=== PATIENT | female | born 1940 | race Caucasian/White ===

== ENCOUNTER 2018-06-23 15:50 | Inpatient (IN) | payer MEDICARE, OTHER ==
[2018-06-23 16:14] LABS: % BASOPHILS 0.5 % (0.0-2.0); % LYMPHOCYTES 31.9 % (20.0-50.0); % MONOCYTES 10.5 % (2.0-10.0); % NEUTROPHILS 54.1 % (40.0-80.0); EOSINOPHILE ABSOLUTE 0.2 Th/cmm (0.1-0.4); HEMATOCRIT 40.3 % (41.0-60); HEMOGLOBIN 13.4 gm/dL (12-16); LYMPHOCYTE ABSOLUTE 2.4 Th/cmm (1.5-3.0); MEAN CELL VOLUME 89.2 fl (81-100); MEAN CORPUSCULAR HEMOGLOBIN 29.6 pg (27.0-31.0); MEAN CORPUSCULAR HGB CONC 33.2 pg (28.0-36.0); MEAN PLATELET VOLUME 7.4 fl; MONOCYTE ABSOLUTE 0.8 Th/cmm (0.3-1.0); PLATELET COUNT 224 Th/cmm (150-400); RED BLOOD COUNT 4.52 Mil/cmm (3.80-5.20); RED CELL DISTRIBUTION WIDTH 12.5 % (11.5-20.0); WHITE BLOOD COUNT 7.4 Th/cmm (4.8-10.8)
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
[2018-06-23 16:33] LABS: ALB/GLOB RATIO 1.5 (1.0-1.8); ALBUMIN 3.9 gm/dL (3.7-5.3); ALKALINE PHOSPHATASE 87 U/L (34-104); ANION GAP 14.7 (7.0-16.0); BILIRUBIN,TOTAL 0.7 mg/dL (0.3-1.0); BUN - UREA NITROGEN 23 mg/dL (7-25); CALCIUM SERUM 9.1 mg/dL (8.6-10.3); CARBON DIOXIDE 21.1 mEq/L (21.0-31.0); CHLORIDE 106 mEq/L (98-107); CREATININE - SERUM 0.8 mg/dL (0.6-1.2); GLUCOSE 122 mg/dL (70-105); MAGNESIUM 1.5 mg/dL (1.9-2.7); PHOSPHOROUS 3.5 mg/dL (2.5-5.0); POTASSIUM SERUM 3.8 mEq/L (3.5-5.1); SGOT 16 U/L (13-39); SGPT/ALT 7 U/L (7-52); SODIUM SERUM 138 mEq/L (136-145); TOTAL PROTEIN,SERUM 6.5 gm/dL (6.0-8.3)
[2018-06-23] MEDS ORDERED: Lactated Ringer 1,000 ML IV ONE ×3 (17:00→19:26)
[2018-06-23 17:22] LABS: URINE SOURCE CATH
[2018-06-23 17:25] LABS: URINE BILIRUBIN NEGATIVE (NEGATIVE); URINE BLOOD TRACE (NEGATIVE); URINE GLUCOSE (UA) NEGATIVE (NEGATIVE); URINE KETONE TRACE mg/dL (NEGATIVE); URINE LEUKOCYTE ESTERASE LARGE (NEGATIVE); URINE MICROSCOPIC INDICATED? YES; URINE NITRATE POSITIVE (NEGATIVE); URINE PROTEIN TRACE mg/dL (NEGATIVE); URINE UROBILINOGEN 0.2 E.U./dL (0.2 - 1.0)
[2018-06-23 17:27] LABS: URINE CLARITY HAZY (CLEAR); URINE COLOR YELLOW
[2018-06-23 17:32] LABS: ACETAMINOPHEN < 10.0 ug/mL (10.0-30.0)
[2018-06-23 17:35] LABS: SALICYLATES (ASPIRIN) < 25.0 mg/L (30.0-100.0)
[2018-06-23 17:35] LABS: URINE BACTERIA MANY /hpf (NONE SEEN); URINE EPITHELIAL CELLS MODERATE /lpf (FEW)
[2018-06-23 18:12] LABS: AMPHETAMINE URINE NEGATIVE (NEGATIVE); BARBITURATES URINE NEGATIVE (NEGATIVE); BENZODIAZEPINES QUAL URINE NEGATIVE (NEGATIVE); CANNABINOID THC NEGATIVE (NEGATIVE); COCAINE METABOLITE QUAL URINE NEGATIVE (NEGATIVE); METHADONE URINE NEGATIVE (NEGATIVE); METHAMPHETAMINES QUAL URINE NEGATIVE (NEGATIVE); OPIATES (MORPHINE) QUAL. URINE NEGATIVE (NEGATIVE); PHENCYCLIDINE (PCP) URINE NEGATIVE (NEGATIVE); TRICYCLICS (TCA) QUAL. URINE NEGATIVE (NEGATIVE)
[2018-06-23] MEDS ORDERED: Calcium Gluconate 1 GM in Sodium Chloride 0.9% 100 ML IV ONE (18:30)
[2018-06-23] MEDS ORDERED: Norepinephrine 4 mg/4mL Vial IV ONE (18:39)
[2018-06-23] MEDS ORDERED: Ciprofloxacin 400mg Premix PB 400 MG/200 ML BAG IV ONE ×2 (20:10→20:32)
[2018-06-23] MEDS ORDERED: Magnesium Sulfate 1 gm/2 mL 2mL Vial IV ONE (20:33)
[2018-06-23 20:36] LABS: INR 1.23 (0.5-1.4); PROTHROMBIN TIME (TEST) 12.7 SECONDS (9.5-11.5)
[2018-06-24 02:44] VITALS: BP 94/33
[2018-06-24 04:34] LABS: HEMATOCRIT 36.4 % (41.0-60); HEMOGLOBIN 12.2 gm/dL (12-16); MEAN CELL VOLUME 88.4 fl (81-100); MEAN CORPUSCULAR HEMOGLOBIN 29.7 pg (27.0-31.0); MEAN CORPUSCULAR HGB CONC 33.6 pg (28.0-36.0); MEAN PLATELET VOLUME 7.7 fl; PLATELET COUNT 191 Th/cmm (150-400); RED BLOOD COUNT 4.12 Mil/cmm (3.80-5.20); RED CELL DISTRIBUTION WIDTH 12.9 % (11.5-20.0); WHITE BLOOD COUNT 7.5 Th/cmm (4.8-10.8)
[2018-06-24 05:13] LABS: BUN - UREA NITROGEN 17 mg/dL (7-25); CALCIUM SERUM 8.7 mg/dL (8.6-10.3); CHLORIDE 108 mEq/L (98-107); CREATININE - SERUM 0.8 mg/dL (0.6-1.2); CREATININE KINASE 92 U/L (30-223); GLUCOSE 87 mg/dL (70-105); SODIUM SERUM 140 mEq/L (136-145)
[2018-06-24 05:49] LABS: BAND NEUTROPHILE 0 % (0-10); LYMPHOCYTE 41 % (20-50); MONOCYTE 5 % (2-10); NEUTROPHILS 53 % (40-80)
[2018-06-24 05:50] LABS: EOSINOPHIL 1 % (0-5)
[2018-06-24] MEDS ORDERED: Mag Sulfate 2gm/50mL Premix 2 GM/50 ML BAG IV ONE (08:00)
[2018-06-24] MEDS ORDERED: Levofloxacin 500mg/100mL 500 MG/100 ML BAG IV SCH (11:00)
[2018-06-24] MEDS ORDERED: VTE Chemical Prophylaxis Screen/Admission MC PRN (11:54)
--- NOTE | 2018-06-24 13:26 | Consultation ---
Consult Note - Consult Note Service Date: 06/24/18 Referring Physician: Tommy Gray Consult Note: PHYSICIAN Consultation Note: Date of Admission: 06/23/18 Purpose of Consultation: UTI Chief Complaint: Patient JERSEY HEATH was admitted to location Intensive Care Unit with CALCIUM CHANNEL OVERDOSE. History of Present Illness: 77-year-old female with medical history depression, parkinson's disease, HTN, alcohol abuse, brought to the ED for suicidal ideation. As per records, she had taken 5 tablets of amlodipine/benazepril at home. but he is not certain of it. She was found to have UTI and cipro followed by Levaquin was started. ID consult was called for antibiotic management. On initial evaluation, she was afebrile, but hypotensive, required Levophed which was diaconitnued. Past Medical History: depression, parkinson's disease, HTN, alcohol abuse, Allergies Allergy/AdvReac Type Severity Reaction Status Date / Time morphine Allergy Verified 06/23/18 17:44 Penicillins Allergy Verified 06/23/18 17:44 Vital Signs Temp 98.9 F 06/24/18 12:00 Pulse 76 06/24/18 12:00 Resp 12 06/24/18 12:00 BP 125/49 06/24/18 12:00 Pulse Ox 97 06/24/18 12:00 Intake & Output 06/23/18 06/24/18 06/24/18 18:59 06:59 18:59 Intake Total 552 Output Total 900 Balance -348 Weight (lbs) 57.153 kg 55.429 kg Intake: Intake, IV Amount 252 Ciprofloxacin 400mg 200 Premix PB 400 mg In 200 ml @ 200 mls/hr IV X1 ONE Rx#:[id number] Magnesium Sulfate 1 gm In 52 Sodium Chloride 0.9% 50 ml @ 52 mls/hr IV X1 ONE Rx#:[id number] Oral 300 Output: Urine 900 Other: # Bowel Movements 0 Stool Characteristics Liquid Brown Weight Source Patient stated Bedscale Laboratory Results - last 24 hr 06/23/18 06/23/18 06/23/18 16:00 16:00 16:00 WBC 7.4 RBC 4.52 Hgb 13.4 Hct 40.3 L MCV 89.2 MCH 29.6 MCHC Differential 33.2 RDW 12.5 Plt Count 224 MPV 7.4 Add Manual Diff Neutrophils % 54.1 Band Neutrophils % Lymphocytes % 31.9 Monocytes % 10.5 H Eosinophils % 3.0 Basophils % 0.5 Neutrophils (Manual) Lymphocytes Monocytes Eosinophils PT INR PTT (Actin FS) Sodium 138 Potassium 3.8 Chloride 106 Carbon Dioxide 21.1 Anion Gap 14.7 BUN 23 Creatinine 0.8 Est GFR ( Amer) TNP Est GFR (Non-Af Amer) TNP BUN/Creatinine Ratio 28.8 Glucose 122 H POC Glucose Calcium 9.1 Phosphorus 3.5 Magnesium 1.5 L Total Bilirubin 0.7 AST 16 ALT 7 Alkaline Phosphatase 87 Creatine Kinase Troponin I 0.01 Total Protein 6.5 Albumin 3.9 Globulin 2.6 Albumin/Globulin Ratio 1.5 Urine Source Urine Color Urine Clarity Urine pH Ur Specific [place] Urine Protein Urine Glucose (UA) Urine Ketones Urine Blood Urine Nitrate Urine Bilirubin Urine Urobilinogen Ur Leukocyte Esterase Urine RBC Urine WBC Ur Epithelial Cells Urine Bacteria Salicylates Urine Opiates Screen Urine Methadone Screen Acetaminophen Ur Barbiturates Screen Ur Tricyclics Screen Ur Phencyclidine Scrn Amphetamines Screen U Methamphetamines Scrn U Benzodiazepines Scrn U Cocaine Metab Screen U Cannabinoids Screen 06/23/18 06/23/18 06/23/18 16:00 17:00 17:00 WBC RBC Hgb Hct MCV MCH MCHC Differential RDW Plt Count MPV Add Manual Diff Neutrophils % Band Neutrophils % Lymphocytes % Monocytes % Eosinophils % Basophils % Neutrophils (Manual) Lymphocytes Monocytes Eosinophils PT INR PTT (Actin FS) Sodium Potassium Chloride Carbon Dioxide Anion Gap BUN Creatinine Est GFR ( Amer) Est GFR (Non-Af Amer) BUN/Creatinine Ratio Glucose POC Glucose Calcium Phosphorus Magnesium Total Bilirubin AST ALT Alkaline Phosphatase Creatine Kinase Troponin I Total Protein Albumin Globulin Albumin/Globulin Ratio Urine Source CATH Urine Color YELLOW Urine Clarity HAZY Urine pH 6.0 Ur Specific [place] 1.025 Urine Protein TRACE Urine Glucose (UA) NEGATIVE Urine Ketones TRACE Urine Blood TRACE Urine Nitrate POSITIVE H Urine Bilirubin NEGATIVE Urine Urobilinogen 0.2 Ur Leukocyte Esterase LARGE H Urine RBC 2-5 Urine WBC 10-25 H Ur Epithelial Cells MODERATE Urine Bacteria MANY H Salicylates < 25.0 L Urine Opiates Screen NEGATIVE Urine Methadone Screen NEGATIVE Acetaminophen < 10.0 L Ur Barbiturates Screen NEGATIVE Ur Tricyclics Screen NEGATIVE Ur Phencyclidine Scrn NEGATIVE Amphetamines Screen NEGATIVE U Methamphetamines Scrn NEGATIVE U Benzodiazepines Scrn NEGATIVE U Cocaine Metab Screen NEGATIVE U Cannabinoids Screen NEGATIVE 06/23/18 06/23/18 06/24/18 18:55 20:24 04:00 WBC RBC Hgb Hct MCV MCH MCHC Differential RDW Plt Count MPV Add Manual Diff Neutrophils % Band Neutrophils % Lymphocytes % Monocytes % Eosinophils % Basophils % Neutrophils (Manual) Lymphocytes Monocytes Eosinophils PT 12.7 H INR 1.23 PTT (Actin FS) 26.7 Sodium 140 Potassium 4.0 Chloride 108 H Carbon Dioxide 26.0 Anion Gap 10.0 BUN 17 Creatinine 0.8 Est GFR ( Amer) TNP Est GFR (Non-Af Amer) TNP BUN/Creatinine Ratio 21.3 Glucose 87 POC Glucose 96 Calcium 8.7 Phosphorus Magnesium Total Bilirubin AST ALT Alkaline Phosphatase Creatine Kinase 92 Troponin I Total Protein Albumin Globulin Albumin/Globulin Ratio Urine Source Urine Color Urine Clarity Urine pH Ur Specific [place] Urine Protein Urine Glucose (UA) Urine Ketones Urine Blood Urine Nitrate Urine Bilirubin Urine Urobilinogen Ur Leukocyte Esterase Urine RBC Urine WBC Ur Epithelial Cells Urine Bacteria Salicylates Urine Opiates Screen Urine Methadone Screen Acetaminophen Ur Barbiturates Screen Ur Tricyclics Screen Ur Phencyclidine Scrn Amphetamines Screen U Methamphetamines Scrn U Benzodiazepines Scrn U Cocaine Metab Screen U Cannabinoids Screen 06/24/18 06/24/18 06/24/18 04:00 04:00 04:00 WBC 7.5 RBC 4.12 Hgb 12.2 Hct 36.4 L MCV 88.4 MCH 29.7 MCHC Differential 33.6 RDW 12.9 Plt Count 191 MPV 7.7 Add Manual Diff YES Neutrophils % VEHICLE MODIFICATION TECHNICIAN Band Neutrophils % 0 Lymphocytes % VEHICLE MODIFICATION TECHNICIAN Monocytes % VEHICLE MODIFICATION TECHNICIAN Eosinophils % VEHICLE MODIFICATION TECHNICIAN Basophils % VEHICLE MODIFICATION TECHNICIAN Neutrophils (Manual) 53 Lymphocytes 41 Monocytes 5 Eosinophils 1 PT INR PTT (Actin FS) Sodium Potassium Chloride Carbon Dioxide Anion Gap BUN Creatinine Est GFR ( Amer) Est GFR (Non-Af Amer) BUN/Creatinine Ratio Glucose POC Glucose Calcium Phosphorus Magnesium 1.6 L Total Bilirubin AST ALT Alkaline Phosphatase Creatine Kinase Troponin I < 0.01 L Total Protein Albumin Globulin Albumin/Globulin Ratio Urine Source Urine Color Urine Clarity Urine pH Ur Specific [place] Urine Protein Urine Glucose (UA) Urine Ketones Urine Blood Urine Nitrate Urine Bilirubin Urine Urobilinogen Ur Leukocyte Esterase Urine RBC Urine WBC Ur Epithelial Cells Urine Bacteria Salicylates Urine Opiates Screen Urine Methadone Screen Acetaminophen Ur Barbiturates Screen Ur Tricyclics Screen Ur Phencyclidine Scrn Amphetamines Screen U Methamphetamines Scrn U Benzodiazepines Scrn U Cocaine Metab Screen U Cannabinoids Screen Home Medication Medication Instructions Recorded Type Carbidopa/Levodopa 25/250 mg 25 - 100 tab PO BID 07/25/15 History [Sinemet 25 mg-250 mg] Rivaroxaban [Xarelto] 20 mg PO DAILY 07/25/15 History Atenolol [Tenormin*] 25 mg PO DAILY #30 tab 08/01/15 Rx Escitalopram Oxalate [Lexapro] 10 mg PO DAILY 11/24/15 History QUEtiapine Fumarate [SEROquel] 25 mg PO HS 06/23/18 History Current Medications Generic Name Dose Route Start Last Admin Trade Name Freq PRN Reason Stop Dose Admin Escitalopram Oxalate 10 mg 06/24/18 09:00 06/24/18 09:06 Lexapro PO 08/23/18 08:59 10 mg DAILY YAMILETH Administration Norepinephrine Bitartrate 4 mg 254 mls @ 30.48 mls/hr 06/23/18 18:39 / Dextrose IV 08/22/18 18:38 TITR PRN BP MAINTENANCE (PER PROTOCOL) Protocol 8 MCG/MIN Levofloxacin 500 mg in 100 mls @ 100 mls/hr 06/24/18 11:00 06/24/18 10:46 Levaquin Pb IV 08/23/18 10:59 100 mls/hr Q24H YAMILETH Administration Lorazepam 1 mg 06/23/18 22:09 06/24/18 12:58 Ativan IVP 08/22/18 22:08 1 mg Q6HR PRN Administration Anxiety Protocol Miscellaneous 1 ea 06/24/18 11:54 Vte [employer] Prophylaxis Screen/ Admission 08/23/18 11:53 PRN PRN PROTOCOL Rivaroxaban 20 mg 06/24/18 09:00 06/24/18 09:04 Xarelto PO 08/23/18 08:59 Not Given DAILY YAMILETH Review of Systems: A 12 point ROS was reviewed with the pertinent positive and negatives noted in the HPI. General/Constitutional: No fever, No chills, No weight loss, No weakness, No diaphoresis, No edema, No loss of appetite Skin: No skin lesions, No rash, No bruising Head: No headache, No light-headedness Eyes: No loss of vision, No pain, No diplopia ENT: No earache, No nasal drainage, No sore throat, No tinnitus Neck: No neck pain, No swelling, No thyromegaly, No stiffness, No mass noted Cardio Vascular: No chest pain, No palpitations, No PND, No orthopnea, No edema Pulmonary: No SOB, No cough, No sputum, No wheezing GI: No nausea, No vomiting, No diarrhea, No pain, No melena, No hematochezia, No constipation, No hematemesis G/U: No dysuria, No frequency, No hematuria Musculoskeletal: No bone or joint pain, No back pain, No muscle pain Endocrine: No polyuria, No polydipsia Psychiatric: Prior psych history, Depression, Suicidal ideation Hematopoietic: No bruising, No lymphadenopathy Allergic/Immuno: No urticaria, No angioedema Neurological: No syncope, No focal symptoms, No weakness, No paresthesia, No headache, No seizure, No dizziness, No confusion, No vertigo. Social History Smoking Status Unknown if ever smoked Drug Use No Alcohol Use Yes Family Medical History Unknown. Physical Exam: General: Comfortable, not in any acute distress. HEENT: Head: normocephalic, atraumatic. Oral cavity: moist, pink tongue, Eyes: pallor present, no icterus. Pupil PERRLA. EOMI. Face: b/l symmetrical. Neck: Supple, no JVD, no carotid bruit. Cardio: S1 and S2 WNL. Respiratory: Vesicular breath sounds. Abdominal: Soft NT ND BS present. Genital/Urinary: Deferred. Extremities: NCCE. Neurological: Confused. tremors. Assessment: 1. UTI, 2. Hypotesion improved. 3. Depression. 4. H/o HTN. 5. Parkinsons disease. 6. Dementia. Plan: Continue levaquin. janitorial services supervisor. Thank you Dr Gray for involving me in taking care of this patient. Signed, Rolando Martinez M.D. [id number]
--- NOTE | 2018-06-24 13:57 | History & Physical ---
ADMIT DATE: 06/24/2018 CHIEF COMPLAINT: Possible calcium channel chalino overdose. HISTORY OF PRESENT ILLNESS: This is a 77-year-old female who apparently took 5 pills of amlodipine and multiple pills of benazepril. For further management, the patient is now admitted to the ICU unit. PAST MEDICAL HISTORY: Hypertension, Parkinson's, alcohol abuse. PAST SURGICAL HISTORY: Left shoulder surgery. PSYCHIATRIC HISTORY: Depression. FAMILY HISTORY: Noncontributory. REVIEW OF SYSTEMS: Unable to obtain at this time. The patient is confused. PHYSICAL EXAMINATION: GENERAL: Elderly female, appears unkempt, in no apparent distress. VITAL SIGNS: Temperature 98.9, heart rate 76, blood pressure 125/49, respirations 12, O2 97%. HEENT: Head: Normocephalic, atraumatic. NECK: Supple. No mass. LUNGS: Clear bilaterally. HEART: Regular rate and rhythm. ABDOMEN: Soft, nontender. SKIN: The patient's right external ear noted with ear laceration. LABORATORY DATA: WBC 7.5, H and H 12.2 and 36.4, platelet of 191. Sodium 140, potassium 4.0, chloride 108, BUN 17, creatinine 0.8. The patient had a urinalysis done, positive for UTI. ASSESSMENT: Calcium channel overdose, suicidal ideation, currently on 5150 hold, delusions, hypertension, depression, as well as acute urinary tract infection. PLAN: We will get Infectious Disease. Keep patient on empiric IV antibiotics. We will get Cardiology on the consult. We will also get psychiatry consultation. We will send urine for culture. Start the patient on IV Levaquin 500 mg IV q.24 hours. We will monitor the patient's magnesium closely. We will continue to monitor this patient. JOB# [id number]
--- NOTE | 2018-06-24 20:09 | Consultation ---
DATE OF CONSULTATION: 06/24/2018 IDENTIFYING DATA: The patient is a 77-year-old woman, , living with her . Information obtained by directly interviewing the patient as well as reviewing the admission papers. The patient has called me yesterday stating that the patient has taken too many tablets of the blood pressure medication and she was wondering what she could do and the patient has been referred to the to take her to the Emergency Room. The has brought the patient to [facility] from where she has been admitted to ICU and I tried to interview the patient, but the patient has been very drowsy and is not able to provide much of information today. The patient is known to me from the previous psychiatric hospitalization. The patient has a long history of depression and also has been having problem with some alcohol issues. The patient at this time is noted to be frustrated. The patient also has a history of Parkinson's disease and functioning has been going down, which made the patient to be extremely depressed. The patient on the day of the hospitalization is reported to have taken an overdose of the blood pressure medication and hence the patient has been admitted over here for stabilization. PAST PSYCHIATRIC HISTORY: The patient is being followed up by me on an outpatient basis for depression. SOCIAL HISTORY: The patient is and living with her . SUBSTANCE ABUSE HISTORY: The patient has a history of alcohol abuse in the past, but the patient's has been trying to dilute and add a very little amount of alcohol to her fluid in the evening. LEGAL PROBLEMS: None at this time. STRENGTHS AND ASSETS: The patient is motivated. MENTAL STATUS EXAMINATION: The patient is a 77-year-old thin built, superficially cooperative. The patient is noted to be very groggy and drowsy and not able to provide much of the information at this time. I will try to interview the patient again and provide much of information tomorrow. DIAGNOSTIC IMPRESSION: AXIS I: Major depressive disorder, recurrent and severe. AXIS II: None. AXIS III: As per Dr. Gray. PLAN: To continue the patient with the supportive therapy and the patient will be followed up. JOB# [id number]
[2018-06-25 05:42] LABS: % BASOPHILS 0.4 % (0.0-2.0); % EOSINOPHILS 1.5 % (0.0-5.0); % LYMPHOCYTES 38.3 % (20.0-50.0); % MONOCYTES 10.2 % (2.0-10.0); % NEUTROPHILS 49.6 % (40.0-80.0); EOSINOPHILE ABSOLUTE 0.1 Th/cmm (0.1-0.4); HEMATOCRIT 38.9 % (41.0-60); LYMPHOCYTE ABSOLUTE 3.5 Th/cmm (1.5-3.0); MEAN CELL VOLUME 88.3 fl (81-100); MEAN CORPUSCULAR HEMOGLOBIN 29.5 pg (27.0-31.0); MEAN CORPUSCULAR HGB CONC 33.4 pg (28.0-36.0); MEAN PLATELET VOLUME 7.6 fl; MONOCYTE ABSOLUTE 0.9 Th/cmm (0.3-1.0); NEUTROPHILE ABSOLUTE 4.6 Th/cmm (1.8-8.0); PLATELET COUNT 209 Th/cmm (150-400); RED CELL DISTRIBUTION WIDTH 12.4 % (11.5-20.0); WHITE BLOOD COUNT 9.1 Th/cmm (4.8-10.8)
--- NOTE | 2018-06-25 05:49 | Consultation ---
DATE OF CONSULTATION: 06/24/[address] Gray. HISTORY OF PRESENT ILLNESS: This is a 77-year-old female patient who tried to commit suicide by taking 5 pills of calcium channel blockers. The patient was brought to the Emergency Room and the patient is admitted with hypotension to ICU. PAST MEDICAL HISTORY: Hypertension, Parkinson's disease, left shoulder surgery, and major depression. FAMILY HISTORY: Unremarkable. SOCIAL HISTORY: No history of smoking, alcohol abuse. ALLERGIES: No known allergies. PHYSICAL EXAMINATION: VITAL SIGNS: Blood pressure 100/60, pulse 68, respirations 28, and temperature 98. HEAD: Normocephalic. No lumps or bumps. EYES: Pupils equal, reactive to light. Fundi show AV nicking, sclerae white, conjunctivae pink. NECK: Carotid 2+. Normal upstroke. JVD flat. Thyroid not palpable. Lymph nodes not palpable. CHEST: Shows increased AP diameter. No kyphosis, scoliosis. LUNGS: Bilateral bronchovesicular breath sounds. HEART: PMI fifth intercostal space with lateral to midclavicular line. S1, S2. No S3, S4, soft systolic murmur. ABDOMEN: Soft. Liver and spleen not palpable. No organomegaly. Bowel sounds active. NEUROLOGIC: Unremarkable. EXTREMITIES: Peripheral pulses 2+. No pedal edema. CLINICAL IMPRESSION: 1. Major depression with suicidal. 2. Hypotension. 3. Hypertension. 4. Left shoulder surgery. 5. Osteoporosis. PLAN: At the present time, we will continue present management and stop atenolol in view of hypotension and bradycardia. Have psych evaluation and home health care social worker evaluation. JOB# [id number]
[2018-06-25 05:59] LABS: BUN - UREA NITROGEN 18 mg/dL (7-25); CALCIUM SERUM 9.3 mg/dL (8.6-10.3); CARBON DIOXIDE 21.1 mEq/L (21.0-31.0); CHLORIDE 107 mEq/L (98-107); CREATININE - SERUM 0.8 mg/dL (0.6-1.2); GLUCOSE 99 mg/dL (70-105); MAGNESIUM 1.8 mg/dL (1.9-2.7); SODIUM SERUM 140 mEq/L (136-145)
[2018-06-25] MEDS ORDERED: Probiotic Screen MC PRN (11:18)
--- NOTE | 2018-06-25 11:47 | Internal Medicine Prog Note ---
Internal Medicine Subjective - Subjective Patient seen and examined:: chart reviewed Patient is:: awake, in bed, confused Per staff patient has:: no adverse event Internal Medicine Objective - Results Result Diagrams: 06/25/18 05:15 06/25/18 05:15 Recent Labs: Laboratory Last Values WBC 9.1 Th/cmm (4.8-10.8) 06/25/18 05:15 RBC 4.40 Mil/cmm (3.80-5.20) 06/25/18 05:15 Hgb 13.0 gm/dL (12-16) 06/25/18 05:15 Hct 38.9 % (41.0-60) L 06/25/18 05:15 MCV 88.3 fl (81-100) 06/25/18 05:15 MCH 29.5 pg (27.0-31.0) 06/25/18 05:15 MCHC Differential 33.4 pg (28.0-36.0) 06/25/18 05:15 RDW 12.4 % (11.5-20.0) 06/25/18 05:15 Plt Count 209 Th/cmm (150-400) 06/25/18 05:15 MPV 7.6 fl 06/25/18 05:15 Add Manual Diff YES 06/24/18 04:00 Neutrophils % 49.6 % (40.0-80.0) 06/25/18 05:15 Band Neutrophils % 0 % (0-10) 06/24/18 04:00 Lymphocytes % 38.3 % (20.0-50.0) 06/25/18 05:15 Monocytes % 10.2 % (2.0-10.0) H 06/25/18 05:15 Eosinophils % 1.5 % (0.0-5.0) 06/25/18 05:15 Basophils % 0.4 % (0.0-2.0) 06/25/18 05:15 Neutrophils (Manual) 53 % (40-80) 06/24/18 04:00 Lymphocytes 41 % (20-50) 06/24/18 04:00 Monocytes 5 % (2-10) 06/24/18 04:00 Eosinophils 1 % (0-5) 06/24/18 04:00 PT 12.7 SECONDS (9.5-11.5) H 06/23/18 18:55 INR 1.23 (0.5-1.4) 06/23/18 18:55 PTT (Actin FS) 26.7 SECONDS (26.0-38.0) 06/23/18 18:55 Sodium 140 mEq/L (136-145) 06/25/18 05:15 Potassium 4.0 mEq/L (3.5-5.1) 06/24/18 04:00 Chloride 107 mEq/L (98-107) 06/25/18 05:15 Carbon Dioxide 21.1 mEq/L (21.0-31.0) 06/25/18 05:15 Anion Gap 15.8 (7.0-16.0) 06/25/18 05:15 BUN 18 mg/dL (7-25) 06/25/18 05:15 Creatinine 0.8 mg/dL (0.6-1.2) 06/25/18 05:15 Est GFR ( Amer) TNP 06/25/18 05:15 Est GFR (Non-Af Amer) TNP 06/25/18 05:15 BUN/Creatinine Ratio 22.5 06/25/18 05:15 Glucose 99 mg/dL (70-105) 06/25/18 05:15 POC Glucose 96 MG/DL (70 - 105) 06/23/18 20:24 Calcium 9.3 mg/dL (8.6-10.3) 06/25/18 05:15 Phosphorus 3.5 mg/dL (2.5-5.0) 06/23/18 16:00 Magnesium 1.8 mg/dL (1.9-2.7) L 06/25/18 05:15 Total Bilirubin 0.7 mg/dL (0.3-1.0) 06/23/18 16:00 AST 16 U/L (13-39) 06/23/18 16:00 ALT 7 U/L (7-52) 06/23/18 16:00 Alkaline Phosphatase 87 U/L (34-104) 06/23/18 16:00 Creatine Kinase 92 U/L (30-223) 06/24/18 04:00 Troponin I < 0.01 ng/mL (0.01-0.05) L 06/24/18 04:00 Total Protein 6.5 gm/dL (6.0-8.3) 06/23/18 16:00 Albumin 3.9 gm/dL (3.7-5.3) 06/23/18 16:00 Globulin 2.6 gm/dL 06/23/18 16:00 Albumin/Globulin Ratio 1.5 (1.0-1.8) 06/23/18 16:00 Urine Source CATH 06/23/18 17:00 Urine Color YELLOW 06/23/18 17:00 Urine Clarity HAZY (CLEAR) 06/23/18 17:00 Urine pH 6.0 (4.6 - 8.0) 06/23/18 17:00 Ur Specific [place] 1.025 (1.005-1.030) 06/23/18 17:00 Urine Protein TRACE mg/dL (NEGATIVE) 06/23/18 17:00 Urine Glucose (UA) NEGATIVE mg/dL (NEGATIVE) 06/23/18 17:00 Urine Ketones TRACE mg/dL (NEGATIVE) 06/23/18 17:00 Urine Blood TRACE (NEGATIVE) 06/23/18 17:00 Urine Nitrate POSITIVE (NEGATIVE) H 06/23/18 17:00 Urine Bilirubin NEGATIVE (NEGATIVE) 06/23/18 17:00 Urine Urobilinogen 0.2 E.U./dL (0.2 - 1.0) 06/23/18 17:00 Ur Leukocyte Esterase LARGE (NEGATIVE) H 06/23/18 17:00 Urine RBC 2-5 /hpf (0-5) 06/23/18 17:00 Urine WBC 10-25 /hpf (0-5) H 06/23/18 17:00 Ur Epithelial Cells MODERATE /lpf (FEW) 06/23/18 17:00 Urine Bacteria MANY /hpf (NONE SEEN) H 06/23/18 17:00 Salicylates < 25.0 mg/L (30.0-100.0) L 06/23/18 16:00 Urine Opiates Screen NEGATIVE (NEGATIVE) 06/23/18 17:00 Urine Methadone Screen NEGATIVE (NEGATIVE) 06/23/18 17:00 Acetaminophen < 10.0 ug/mL (10.0-30.0) L 06/23/18 16:00 Ur Barbiturates Screen NEGATIVE (NEGATIVE) 06/23/18 17:00 Ur Tricyclics Screen NEGATIVE (NEGATIVE) 06/23/18 17:00 Ur Phencyclidine Scrn NEGATIVE (NEGATIVE) 06/23/18 17:00 Amphetamines Screen NEGATIVE (NEGATIVE) 06/23/18 17:00 U Methamphetamines Scrn NEGATIVE (NEGATIVE) 06/23/18 17:00 U Benzodiazepines Scrn NEGATIVE (NEGATIVE) 06/23/18 17:00 U Cocaine Metab Screen NEGATIVE (NEGATIVE) 06/23/18 17:00 U Cannabinoids Screen NEGATIVE (NEGATIVE) 06/23/18 17:00 - Physical Exam Vitals and I&O: Vital Signs Temp 99 F 06/25/18 04:00 Pulse 76 06/25/18 04:00 Resp 22 06/25/18 04:00 BP 128/56 06/25/18 04:00 Pulse Ox 96 06/25/18 04:00 Intake & Output 06/24/18 06/25/18 06/25/18 18:59 06:59 18:59 Intake Total 800 Output Total 220 Balance 580 Weight (lbs) 55.429 kg 52.39 kg Intake: Intake, IV Amount 150 Levofloxacin 500mg/100mL 100 500 mg In 100 ml @ 100 mls/hr IV Q24H [facility] Rx#: [id number] Oral 650 Output: Urine 220 Other: # Bowel Movements 1 Stool Characteristics Soft Soft Weight Source Bedscale Active Medications: Current Medications Acetaminophen (Tylenol) 650 mg PO Q6H PRN PRN Reason: Pain (Moderate) Stop: 08/23/18 13:58 Carbidopa/Levodopa (Sinemet 25 Mg-250 Mg) 1 tab PO BID [facility] Stop: 08/23/18 19:14 Last Admin: 06/25/18 08:37 Dose: 1 tab Escitalopram Oxalate (Lexapro) 10 mg PO DAILY [facility] Stop: 08/23/18 08:59 Last Admin: 06/25/18 08:38 Dose: 10 mg Lactobacillus Rhamnosus (Culturelle 15b) 1 each PO DAILY [facility] Stop: 08/24/18 13:59 Lorazepam (Ativan) 1 mg IVP Q6HR PRN; Protocol PRN Reason: Anxiety Stop: 08/22/18 22:08 Last Admin: 06/25/18 08:38 Dose: 1 mg Miscellaneous (Vte Chemical Prophylaxis Screen/ Admission) 1 [facility] PRN PRN PRN Reason: PROTOCOL Stop: 08/23/18 11:53 Miscellaneous (Probiotic Screen) 1 [facility] PRN PRN PRN Reason: PROTOCOL Stop: 08/24/18 11:17 Miscellaneous (Gentamicin Iv Per Pharmacy) 1 [facility] PRN PRN PRN Reason: PROTOCOL Stop: 08/24/18 11:39 Rivaroxaban (Xarelto) 20 mg PO DAILY [facility] Stop: 08/23/18 08:59 Last Admin: 06/25/18 08:37 Dose: 20 mg General: weak HEENT: NC/AT Neck: Supple Lungs: CTAB Cardiovascular: Normal S1, Normal S2 Abdomen: soft, non-tender Extremities: clear Neurological: no change - Procedures Procedures: Procedures Procedure Code Date GROUP PSYCHOTHERAPY 88173 11/24/15 GROUP PSYCHOTHERAPY GZHZZZZ 11/24/15 GROUP PSYCHOTHERAPY 07691 07/25/15 GROUP PSYCHOTHERAPY GZHZZZZ 07/25/15 Internal Medicine Assmt/Plan - Assessment Assessment: calcium channel OD UTI SI depression delusional htn - Plan Plan: as per order sheet
[2018-06-25 12:43] LABS: ANION GAP 15.9 (7.0-16.0)
[2018-06-25] MEDS ORDERED: Gentamicin 160 MG in Sodium Chloride 0.9% 100 ML IV SCH (13:00)
--- NOTE | 2018-06-25 13:56 | Infectious Disease Prog Note ---
Infectious Disease Subjective - Review of Systems Service Date: 06/25/18 Subjective: No new change, no fever/ Infectious Disease Objective - Results Result Diagrams: 06/25/18 05:15 06/25/18 05:15 Recent Labs: Laboratory Last Values WBC 9.1 Th/cmm (4.8-10.8) 06/25/18 05:15 RBC 4.40 Mil/cmm (3.80-5.20) 06/25/18 05:15 Hgb 13.0 gm/dL (12-16) 06/25/18 05:15 Hct 38.9 % (41.0-60) L 06/25/18 05:15 MCV 88.3 fl (81-100) 06/25/18 05:15 MCH 29.5 pg (27.0-31.0) 06/25/18 05:15 MCHC Differential 33.4 pg (28.0-36.0) 06/25/18 05:15 RDW 12.4 % (11.5-20.0) 06/25/18 05:15 Plt Count 209 Th/cmm (150-400) 06/25/18 05:15 MPV 7.6 fl 06/25/18 05:15 Add Manual Diff YES 06/24/18 04:00 Neutrophils % 49.6 % (40.0-80.0) 06/25/18 05:15 Band Neutrophils % 0 % (0-10) 06/24/18 04:00 Lymphocytes % 38.3 % (20.0-50.0) 06/25/18 05:15 Monocytes % 10.2 % (2.0-10.0) H 06/25/18 05:15 Eosinophils % 1.5 % (0.0-5.0) 06/25/18 05:15 Basophils % 0.4 % (0.0-2.0) 06/25/18 05:15 Neutrophils (Manual) 53 % (40-80) 06/24/18 04:00 Lymphocytes 41 % (20-50) 06/24/18 04:00 Monocytes 5 % (2-10) 06/24/18 04:00 Eosinophils 1 % (0-5) 06/24/18 04:00 PT 12.7 SECONDS (9.5-11.5) H 06/23/18 18:55 INR 1.23 (0.5-1.4) 06/23/18 18:55 PTT (Actin FS) 26.7 SECONDS (26.0-38.0) 06/23/18 18:55 Sodium 140 mEq/L (136-145) 06/25/18 05:15 Potassium 4.0 mEq/L (3.5-5.1) 06/25/18 05:15 Chloride 107 mEq/L (98-107) 06/25/18 05:15 Carbon Dioxide 21.1 mEq/L (21.0-31.0) 06/25/18 05:15 Anion Gap 15.9 (7.0-16.0) 06/25/18 05:15 BUN 18 mg/dL (7-25) 06/25/18 05:15 Creatinine 0.8 mg/dL (0.6-1.2) 06/25/18 05:15 Est GFR ( Amer) TNP 06/25/18 05:15 Est GFR (Non-Af Amer) TNP 06/25/18 05:15 BUN/Creatinine Ratio 22.5 06/25/18 05:15 Glucose 99 mg/dL (70-105) 06/25/18 05:15 POC Glucose 96 MG/DL (70 - 105) 06/23/18 20:24 Calcium 9.3 mg/dL (8.6-10.3) 06/25/18 05:15 Phosphorus 3.5 mg/dL (2.5-5.0) 06/23/18 16:00 Magnesium 1.8 mg/dL (1.9-2.7) L 06/25/18 05:15 Total Bilirubin 0.7 mg/dL (0.3-1.0) 06/23/18 16:00 AST 16 U/L (13-39) 06/23/18 16:00 ALT 7 U/L (7-52) 06/23/18 16:00 Alkaline Phosphatase 87 U/L (34-104) 06/23/18 16:00 Creatine Kinase 92 U/L (30-223) 06/24/18 04:00 Troponin I < 0.01 ng/mL (0.01-0.05) L 06/24/18 04:00 Total Protein 6.5 gm/dL (6.0-8.3) 06/23/18 16:00 Albumin 3.9 gm/dL (3.7-5.3) 06/23/18 16:00 Globulin 2.6 gm/dL 06/23/18 16:00 Albumin/Globulin Ratio 1.5 (1.0-1.8) 06/23/18 16:00 Urine Source CATH 06/23/18 17:00 Urine Color YELLOW 06/23/18 17:00 Urine Clarity HAZY (CLEAR) 06/23/18 17:00 Urine pH 6.0 (4.6 - 8.0) 06/23/18 17:00 Ur Specific [place] 1.025 (1.005-1.030) 06/23/18 17:00 Urine Protein TRACE mg/dL (NEGATIVE) 06/23/18 17:00 Urine Glucose (UA) NEGATIVE mg/dL (NEGATIVE) 06/23/18 17:00 Urine Ketones TRACE mg/dL (NEGATIVE) 06/23/18 17:00 Urine Blood TRACE (NEGATIVE) 06/23/18 17:00 Urine Nitrate POSITIVE (NEGATIVE) H 06/23/18 17:00 Urine Bilirubin NEGATIVE (NEGATIVE) 06/23/18 17:00 Urine Urobilinogen 0.2 E.U./dL (0.2 - 1.0) 06/23/18 17:00 Ur Leukocyte Esterase LARGE (NEGATIVE) H 06/23/18 17:00 Urine RBC 2-5 /hpf (0-5) 06/23/18 17:00 Urine WBC 10-25 /hpf (0-5) H 06/23/18 17:00 Ur Epithelial Cells MODERATE /lpf (FEW) 06/23/18 17:00 Urine Bacteria MANY /hpf (NONE SEEN) H 06/23/18 17:00 Salicylates < 25.0 mg/L (30.0-100.0) L 06/23/18 16:00 Urine Opiates Screen NEGATIVE (NEGATIVE) 06/23/18 17:00 Urine Methadone Screen NEGATIVE (NEGATIVE) 06/23/18 17:00 Acetaminophen < 10.0 ug/mL (10.0-30.0) L 06/23/18 16:00 Ur Barbiturates Screen NEGATIVE (NEGATIVE) 06/23/18 17:00 Ur Tricyclics Screen NEGATIVE (NEGATIVE) 06/23/18 17:00 Ur Phencyclidine Scrn NEGATIVE (NEGATIVE) 06/23/18 17:00 Amphetamines Screen NEGATIVE (NEGATIVE) 06/23/18 17:00 U Methamphetamines Scrn NEGATIVE (NEGATIVE) 06/23/18 17:00 U Benzodiazepines Scrn NEGATIVE (NEGATIVE) 06/23/18 17:00 U Cocaine Metab Screen NEGATIVE (NEGATIVE) 06/23/18 17:00 U Cannabinoids Screen NEGATIVE (NEGATIVE) 06/23/18 17:00 - Physical Exam Vitals and I&O: Vital Signs Temp 98.0 F 06/25/18 08:00 Pulse 78 06/25/18 08:00 Resp 18 06/25/18 12:00 BP 130/74 06/25/18 08:00 Pulse Ox 98 06/25/18 08:00 Intake & Output 06/24/18 06/25/18 06/25/18 18:59 06:59 18:59 Intake Total 800 Output Total 220 Balance 580 Weight (lbs) 55.429 kg 52.39 kg Intake: Intake, IV Amount 150 Levofloxacin 500mg/100mL 100 500 mg In 100 ml @ 100 mls/hr IV Q24H [facility] Rx#: [id number] Oral 650 Output: Urine 220 Other: # Bowel Movements 1 Stool Characteristics Soft Soft Weight Source Bedscale Active Medications: Current Medications Acetaminophen (Tylenol) 650 mg PO Q6H PRN PRN Reason: Pain (Moderate) Stop: 08/23/18 13:58 Carbidopa/Levodopa (Sinemet 25 Mg-250 Mg) 1 tab PO BID [facility] Stop: 08/23/18 19:14 Last Admin: 06/25/18 08:37 Dose: 1 tab Escitalopram Oxalate (Lexapro) 10 mg PO DAILY [facility] Stop: 08/23/18 08:59 Last Admin: 06/25/18 08:38 Dose: 10 mg Gentamicin Sulfate 160 mg/ (Sodium Chloride) 104 mls @ 100 mls/hr IV Q24H [facility] Stop: 08/24/18 12:59 Lactobacillus Rhamnosus (Culturelle 15b) 1 each PO DAILY [facility] Stop: 08/24/18 13:59 Lorazepam (Ativan) 1 mg IVP Q6HR PRN; Protocol PRN Reason: Anxiety Stop: 08/22/18 22:08 Last Admin: 06/25/18 08:38 Dose: 1 mg Miscellaneous (Vte Chemical Prophylaxis Screen/ Admission) 1 ea [facility] PRN PRN PRN Reason: PROTOCOL Stop: 08/23/18 11:53 Miscellaneous (Probiotic Screen) 1 [facility] PRN PRN PRN Reason: PROTOCOL Stop: 08/24/18 11:17 Miscellaneous (Gentamicin Iv Per Pharmacy) 1 [facility] PRN PRN PRN Reason: PROTOCOL Stop: 08/24/18 11:39 Rivaroxaban (Xarelto) 20 mg PO DAILY [facility] Stop: 08/23/18 08:59 Last Admin: 06/25/18 08:37 Dose: 20 mg General: no acute distress, well developed, well nourished HEENT: atraumatic, normocephalic, PERRLA, EOMI Neck: supple, no thyromegaly, no lymphadenopathy Cardiovascular: S1S2, regular Lungs: clear to auscultation bilaterally, clear to percussion Abdomen: soft, no tender, no distended, no mass Extremities: no cyanosis, no clubbing, no edema Neurological: awake, alert - Procedures Procedures: Procedures Procedure Code Date GROUP PSYCHOTHERAPY 44988 11/24/15 GROUP PSYCHOTHERAPY GZHZZZZ 11/24/15 GROUP PSYCHOTHERAPY 76552 07/25/15 GROUP PSYCHOTHERAPY GZHZZZZ 07/25/15 Infectious Disease Assmt/Plan - Problem List Patient Problems: All Active Problems MEDICATION EXCESS AND MISAPPROPRIATION (Acute) - Assessment Assessment: 1. UTI, 2. Hypotesion improved. 3. Depression. 4. H/o HTN. 5. Parkinsons disease. 6. Dementia. - Plan Plan: Start gentamicin. CHAD avila.
[2018-06-25] MEDS: Lactobacillus Rhamnosus GG 15 Billion CFU CAP.SPRINK PO SCH (15:40)
--- NOTE | 2018-06-26 03:47 | Progress Notes ---
DATE: 06/25/2018 SUBJECTIVE: Staff was spoken to. The patient is interviewed. The patient is noted to be irritable. Affect is constricted. Insight and judgment are noted to be still impaired. Impulse control is noted to be limited. The patient has been having difficult time to cope with the stress. No side effects to the medications are noted. The patient is still confused and I could not figure it out why she has taken too many pills. The patient is stating that she is frustrated with her pain and the patient is still very confused and is not making much sense. ASSESSMENT: The patient is still very confused and depressed. PLAN: To continue the patient with the supportive therapy and we will try to get the patient to the geropsychiatric unit once the patient is medically stabilized. JOB# [id number]
[2018-06-26 06:03] LABS: % BASOPHILS 0.4 % (0.0-2.0); % EOSINOPHILS 0.3 % (0.0-5.0); % MONOCYTES 4.9 % (2.0-10.0); % NEUTROPHILS 82.4 % (40.0-80.0); HEMATOCRIT 39.3 % (41.0-60); HEMOGLOBIN 13.4 gm/dL (12-16); MEAN CELL VOLUME 87.1 fl (81-100); MEAN CORPUSCULAR HEMOGLOBIN 29.7 pg (27.0-31.0); MEAN CORPUSCULAR HGB CONC 34.1 pg (28.0-36.0); MEAN PLATELET VOLUME 7.8 fl; MONOCYTE ABSOLUTE 0.4 Th/cmm (0.3-1.0); PLATELET COUNT 209 Th/cmm (150-400); RED BLOOD COUNT 4.51 Mil/cmm (3.80-5.20); RED CELL DISTRIBUTION WIDTH 12.4 % (11.5-20.0); WHITE BLOOD COUNT 8.4 Th/cmm (4.8-10.8)
[2018-06-26 06:18] LABS: ANION GAP 17.2 (7.0-16.0); BUN - UREA NITROGEN 27 mg/dL (7-25); CALCIUM SERUM 9.6 mg/dL (8.6-10.3); CARBON DIOXIDE 21.6 mEq/L (21.0-31.0); CHLORIDE 109 mEq/L (98-107); CREATININE - SERUM 0.9 mg/dL (0.6-1.2); GLUCOSE 180 mg/dL (70-105); POTASSIUM SERUM 3.8 mEq/L (3.5-5.1); SODIUM SERUM 144 mEq/L (136-145)
--- NOTE | 2018-06-26 08:28 | Diagnostic Imaging Report ---
Pelvis (single view) HISTORY: Pain, question foreign body No acute bony abnormality. No fractures. 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 Additional surgical changes seen. Surgical pins traverse the left intertrochanteric region. Surgical clips project over the pubic symphysis. Electrode pack noted over the right pelvis. There is a tubular-like radiodensity projecting within the soft tissues of the right inner thigh. If needed, dedicated radiographs of this area would provide for further assessment. IMPRESSION: 1. No acute bony abnormalities 2. 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 Surgical changes 4. Partial visualization of a tubular radiodensity projecting the soft tissues of the right inner thigh. If indicated, dedicated radiographs of this area would provide additional assessment.
[2018-06-26] MEDS: Lactobacillus Rhamnosus GG 15 Billion CFU CAP.SPRINK PO SCH (10:00)
--- NOTE | 2018-06-26 13:41 | Internal Medicine Prog Note ---
Internal Medicine Subjective - Subjective Service Date: 06/26/18 Patient is:: awake, in bed, confused Per staff patient has:: no adverse event Internal Medicine Objective - Results Result Diagrams: 06/26/18 05:40 06/26/18 05:40 Recent Labs: Laboratory Last Values WBC 8.4 Th/cmm (4.8-10.8) 06/26/18 05:40 RBC 4.51 Mil/cmm (3.80-5.20) 06/26/18 05:40 Hgb 13.4 gm/dL (12-16) 06/26/18 05:40 Hct 39.3 % (41.0-60) L 06/26/18 05:40 MCV 87.1 fl (81-100) 06/26/18 05:40 MCH 29.7 pg (27.0-31.0) 06/26/18 05:40 MCHC Differential 34.1 pg (28.0-36.0) 06/26/18 05:40 RDW 12.4 % (11.5-20.0) 06/26/18 05:40 Plt Count 209 Th/cmm (150-400) 06/26/18 05:40 MPV 7.8 fl 06/26/18 05:40 Add Manual Diff YES 06/24/18 04:00 Neutrophils % 82.4 % (40.0-80.0) H 06/26/18 05:40 Band Neutrophils % 0 % (0-10) 06/24/18 04:00 Lymphocytes % 12.0 % (20.0-50.0) L 06/26/18 05:40 Monocytes % 4.9 % (2.0-10.0) 06/26/18 05:40 Eosinophils % 0.3 % (0.0-5.0) 06/26/18 05:40 Basophils % 0.4 % (0.0-2.0) 06/26/18 05:40 Neutrophils (Manual) 53 % (40-80) 06/24/18 04:00 Lymphocytes 41 % (20-50) 06/24/18 04:00 Monocytes 5 % (2-10) 06/24/18 04:00 Eosinophils 1 % (0-5) 06/24/18 04:00 PT 12.7 SECONDS (9.5-11.5) H 06/23/18 18:55 INR 1.23 (0.5-1.4) 06/23/18 18:55 PTT (Actin FS) 26.7 SECONDS (26.0-38.0) 06/23/18 18:55 Sodium 144 mEq/L (136-145) 06/26/18 05:40 Potassium 3.8 mEq/L (3.5-5.1) 06/26/18 05:40 Chloride 109 mEq/L (98-107) H 06/26/18 05:40 Carbon Dioxide 21.6 mEq/L (21.0-31.0) 06/26/18 05:40 Anion Gap 17.2 (7.0-16.0) H 06/26/18 05:40 BUN 27 mg/dL (7-25) H 06/26/18 05:40 Creatinine 0.9 mg/dL (0.6-1.2) 06/26/18 05:40 Est GFR ( Amer) TNP 06/26/18 05:40 Est GFR (Non-Af Amer) TNP 06/26/18 05:40 BUN/Creatinine Ratio 30.0 06/26/18 05:40 Glucose 180 mg/dL (70-105) H 06/26/18 05:40 POC Glucose 96 MG/DL (70 - 105) 06/23/18 20:24 Calcium 9.6 mg/dL (8.6-10.3) 06/26/18 05:40 Phosphorus 3.5 mg/dL (2.5-5.0) 06/23/18 16:00 Magnesium 1.8 mg/dL (1.9-2.7) L 06/25/18 05:15 Total Bilirubin 0.7 mg/dL (0.3-1.0) 06/23/18 16:00 AST 16 U/L (13-39) 06/23/18 16:00 ALT 7 U/L (7-52) 06/23/18 16:00 Alkaline Phosphatase 87 U/L (34-104) 06/23/18 16:00 Creatine Kinase 92 U/L (30-223) 06/24/18 04:00 Troponin I < 0.01 ng/mL (0.01-0.05) L 06/24/18 04:00 Total Protein 6.5 gm/dL (6.0-8.3) 06/23/18 16:00 Albumin 3.9 gm/dL (3.7-5.3) 06/23/18 16:00 Globulin 2.6 gm/dL 06/23/18 16:00 Albumin/Globulin Ratio 1.5 (1.0-1.8) 06/23/18 16:00 Urine Source CATH 06/23/18 17:00 Urine Color YELLOW 06/23/18 17:00 Urine Clarity HAZY (CLEAR) 06/23/18 17:00 Urine pH 6.0 (4.6 - 8.0) 06/23/18 17:00 Ur Specific [place] 1.025 (1.005-1.030) 06/23/18 17:00 Urine Protein TRACE mg/dL (NEGATIVE) 06/23/18 17:00 Urine Glucose (UA) NEGATIVE mg/dL (NEGATIVE) 06/23/18 17:00 Urine Ketones TRACE mg/dL (NEGATIVE) 06/23/18 17:00 Urine Blood TRACE (NEGATIVE) 06/23/18 17:00 Urine Nitrate POSITIVE (NEGATIVE) H 06/23/18 17:00 Urine Bilirubin NEGATIVE (NEGATIVE) 06/23/18 17:00 Urine Urobilinogen 0.2 E.U./dL (0.2 - 1.0) 06/23/18 17:00 Ur Leukocyte Esterase LARGE (NEGATIVE) H 06/23/18 17:00 Urine RBC 2-5 /hpf (0-5) 06/23/18 17:00 Urine WBC 10-25 /hpf (0-5) H 06/23/18 17:00 Ur Epithelial Cells MODERATE /lpf (FEW) 06/23/18 17:00 Urine Bacteria MANY /hpf (NONE SEEN) H 06/23/18 17:00 Salicylates < 25.0 mg/L (30.0-100.0) L 06/23/18 16:00 Urine Opiates Screen NEGATIVE (NEGATIVE) 06/23/18 17:00 Urine Methadone Screen NEGATIVE (NEGATIVE) 06/23/18 17:00 Acetaminophen < 10.0 ug/mL (10.0-30.0) L 06/23/18 16:00 Ur Barbiturates Screen NEGATIVE (NEGATIVE) 06/23/18 17:00 Ur Tricyclics Screen NEGATIVE (NEGATIVE) 06/23/18 17:00 Ur Phencyclidine Scrn NEGATIVE (NEGATIVE) 06/23/18 17:00 Amphetamines Screen NEGATIVE (NEGATIVE) 06/23/18 17:00 U Methamphetamines Scrn NEGATIVE (NEGATIVE) 06/23/18 17:00 U Benzodiazepines Scrn NEGATIVE (NEGATIVE) 06/23/18 17:00 U Cocaine Metab Screen NEGATIVE (NEGATIVE) 06/23/18 17:00 U Cannabinoids Screen NEGATIVE (NEGATIVE) 06/23/18 17:00 - Physical Exam Vitals and I&O: Vital Signs Temp 98 F 06/26/18 04:00 Pulse 83 06/26/18 04:00 Resp 18 06/26/18 12:11 BP 125/88 06/26/18 04:00 Pulse Ox 93 06/26/18 04:00 Intake & Output 06/25/18 06/26/18 06/26/18 18:59 06:59 18:59 Intake Total 650 60 Output Total 250 650 Balance 400 -590 Weight (lbs) 115 lb 8 oz 114 lb 9 oz Intake: Oral 650 60 Output: Urine 250 650 Other: # Bowel Movements 0 0 Weight Source Bedscale Bedscale Active Medications: Current Medications Acetaminophen (Tylenol) 650 mg PO Q6H PRN PRN Reason: Pain (Moderate) Stop: 08/23/18 13:58 Carbidopa/Levodopa (Sinemet 25 Mg-250 Mg) 1 tab PO BID [facility] Stop: 08/23/18 19:14 Last Admin: 06/26/18 10:00 Dose: 1 tab Escitalopram Oxalate (Lexapro) 10 mg PO DAILY [facility] Stop: 08/23/18 08:59 Last Admin: 06/26/18 10:00 Dose: 10 mg Lactobacillus Rhamnosus (Culturelle 15b) 1 each PO DAILY [facility] Stop: 08/24/18 13:59 Last Admin: 06/26/18 10:00 Dose: 1 each Lorazepam (Ativan) 1 mg IVP Q6HR PRN; Protocol PRN Reason: Anxiety Stop: 08/22/18 22:08 Last Admin: 06/26/18 04:22 Dose: 1 mg Miscellaneous (Vte Chemical Prophylaxis Screen/ Admission) 1 [facility] PRN PRN PRN Reason: PROTOCOL Stop: 08/23/18 11:53 Miscellaneous (Probiotic Screen) 1 [facility] PRN PRN PRN Reason: PROTOCOL Stop: 08/24/18 11:17 Miscellaneous (Gentamicin Iv Per Pharmacy) 1 [facility] PRN PRN PRN Reason: PROTOCOL Stop: 08/24/18 11:39 Rivaroxaban (Xarelto) 20 mg PO DAILY [facility] Stop: 08/23/18 08:59 Last Admin: 06/26/18 10:00 Dose: 20 mg General: weak HEENT: NC/AT Neck: Supple Lungs: CTAB Cardiovascular: Normal S1, Normal S2 Abdomen: soft, non-tender Extremities: clear Neurological: no change - Procedures Procedures: Procedures Procedure Code Date GROUP PSYCHOTHERAPY 58926 11/24/15 GROUP PSYCHOTHERAPY GZHZZZZ 11/24/15 GROUP PSYCHOTHERAPY 25450 07/25/15 GROUP PSYCHOTHERAPY GZHZZZZ 07/25/15 Internal Medicine Assmt/Plan - Assessment Assessment: calcium channel OD UTI SI depression delusional htn - Plan Plan: ivabx as per id fall precautions continue current plan of care
[2018-06-26] MEDS ORDERED: Gentamicin 100mg/100mL Premix Bag IV SCH (16:00)
--- NOTE | 2018-06-26 20:42 | Progress Notes ---
DATE: 06/26/2018 SUBJECTIVE: Staff was spoken to. The patient is interviewed. Mood is noted to be dysphoric. The patient is very confused, not able to care for self. Insight and judgment at this are noted to be still impaired and impulse control seems to be limited. The patient made a suicidal attempt by overdosing on the blood pressure medication, but the patient at this time is very confused and disoriented and not able to provide much of information. PLAN: To place the patient on a 14-day hold and follow the patient up with supportive therapy. JOB# [id number]
[2018-06-27 05:37] LABS: % BASOPHILS 0.1 % (0.0-2.0); % EOSINOPHILS 0.2 % (0.0-5.0); % LYMPHOCYTES 15.8 % (20.0-50.0); % MONOCYTES 7.5 % (2.0-10.0); % NEUTROPHILS 76.4 % (40.0-80.0); HEMATOCRIT 42.4 % (41.0-60); LYMPHOCYTE ABSOLUTE 1.4 Th/cmm (1.5-3.0); MEAN CELL VOLUME 87.8 fl (81-100); MEAN PLATELET VOLUME 7.8 fl; MONOCYTE ABSOLUTE 0.7 Th/cmm (0.3-1.0); NEUTROPHILE ABSOLUTE 6.6 Th/cmm (1.8-8.0); PLATELET COUNT 212 Th/cmm (150-400); RED BLOOD COUNT 4.83 Mil/cmm (3.80-5.20); RED CELL DISTRIBUTION WIDTH 12.9 % (11.5-20.0); WHITE BLOOD COUNT 8.7 Th/cmm (4.8-10.8)
[2018-06-27 05:48] LABS: ANION GAP 19.1 (7.0-16.0); BUN - UREA NITROGEN 52 mg/dL (7-25); CALCIUM SERUM 9.8 mg/dL (8.6-10.3); CARBON DIOXIDE 21.5 mEq/L (21.0-31.0); CHLORIDE 115 mEq/L (98-107); CREATININE - SERUM 1.4 mg/dL (0.6-1.2); GLUCOSE 146 mg/dL (70-105); POTASSIUM SERUM 3.6 mEq/L (3.5-5.1); SODIUM SERUM 152 mEq/L (136-145)
[2018-06-27] MEDS: Sodium Chloride 0.45% 1,000 ML IV SCH ×2 (10:07→19:06)
[2018-06-27] MEDS: Lactobacillus Rhamnosus GG 15 Billion CFU CAP.SPRINK PO SCH (10:07)
--- NOTE | 2018-06-27 13:58 | Internal Medicine Prog Note ---
Internal Medicine Subjective - Subjective Patient seen and examined:: chart reviewed Patient is:: awake, confused Per staff patient has:: no adverse event Internal Medicine Objective - Results Result Diagrams: 06/27/18 04:55 06/27/18 04:55 Recent Labs: Laboratory Last Values WBC 8.7 Th/cmm (4.8-10.8) 06/27/18 04:55 RBC 4.83 Mil/cmm (3.80-5.20) 06/27/18 04:55 Hgb 14.0 gm/dL (12-16) 06/27/18 04:55 Hct 42.4 % (41.0-60) 06/27/18 04:55 MCV 87.8 fl (81-100) 06/27/18 04:55 MCH 29.0 pg (27.0-31.0) 06/27/18 04:55 MCHC Differential 33.0 pg (28.0-36.0) 06/27/18 04:55 RDW 12.9 % (11.5-20.0) 06/27/18 04:55 Plt Count 212 Th/cmm (150-400) 06/27/18 04:55 MPV 7.8 fl 06/27/18 04:55 Add Manual Diff YES 06/24/18 04:00 Neutrophils % 76.4 % (40.0-80.0) 06/27/18 04:55 Band Neutrophils % 0 % (0-10) 06/24/18 04:00 Lymphocytes % 15.8 % (20.0-50.0) L 06/27/18 04:55 Monocytes % 7.5 % (2.0-10.0) 06/27/18 04:55 Eosinophils % 0.2 % (0.0-5.0) 06/27/18 04:55 Basophils % 0.1 % (0.0-2.0) 06/27/18 04:55 Neutrophils (Manual) 53 % (40-80) 06/24/18 04:00 Lymphocytes 41 % (20-50) 06/24/18 04:00 Monocytes 5 % (2-10) 06/24/18 04:00 Eosinophils 1 % (0-5) 06/24/18 04:00 PT 12.7 SECONDS (9.5-11.5) H 06/23/18 18:55 INR 1.23 (0.5-1.4) 06/23/18 18:55 PTT (Actin FS) 26.7 SECONDS (26.0-38.0) 06/23/18 18:55 Sodium 152 mEq/L (136-145) H 06/27/18 04:55 Potassium 3.6 mEq/L (3.5-5.1) 06/27/18 04:55 Chloride 115 mEq/L (98-107) H 06/27/18 04:55 Carbon Dioxide 21.5 mEq/L (21.0-31.0) 06/27/18 04:55 Anion Gap 19.1 (7.0-16.0) H 06/27/18 04:55 BUN 52 mg/dL (7-25) H 06/27/18 04:55 Creatinine 1.4 mg/dL (0.6-1.2) H 06/27/18 04:55 Est GFR ( Amer) TNP 06/27/18 04:55 Est GFR (Non-Af Amer) TNP 06/27/18 04:55 BUN/Creatinine Ratio 37.1 06/27/18 04:55 Glucose 146 mg/dL (70-105) H 06/27/18 04:55 POC Glucose 96 MG/DL (70 - 105) 06/23/18 20:24 Calcium 9.8 mg/dL (8.6-10.3) 06/27/18 04:55 Phosphorus 3.5 mg/dL (2.5-5.0) 06/23/18 16:00 Magnesium 1.8 mg/dL (1.9-2.7) L 06/25/18 05:15 Total Bilirubin 0.7 mg/dL (0.3-1.0) 06/23/18 16:00 AST 16 U/L (13-39) 06/23/18 16:00 ALT 7 U/L (7-52) 06/23/18 16:00 Alkaline Phosphatase 87 U/L (34-104) 06/23/18 16:00 Creatine Kinase 92 U/L (30-223) 06/24/18 04:00 Troponin I < 0.01 ng/mL (0.01-0.05) L 06/24/18 04:00 Total Protein 6.5 gm/dL (6.0-8.3) 06/23/18 16:00 Albumin 3.9 gm/dL (3.7-5.3) 06/23/18 16:00 Globulin 2.6 gm/dL 06/23/18 16:00 Albumin/Globulin Ratio 1.5 (1.0-1.8) 06/23/18 16:00 Urine Source CATH 06/23/18 17:00 Urine Color YELLOW 06/23/18 17:00 Urine Clarity HAZY (CLEAR) 06/23/18 17:00 Urine pH 6.0 (4.6 - 8.0) 06/23/18 17:00 Ur Specific [place] 1.025 (1.005-1.030) 06/23/18 17:00 Urine Protein TRACE mg/dL (NEGATIVE) 06/23/18 17:00 Urine Glucose (UA) NEGATIVE mg/dL (NEGATIVE) 06/23/18 17:00 Urine Ketones TRACE mg/dL (NEGATIVE) 06/23/18 17:00 Urine Blood TRACE (NEGATIVE) 06/23/18 17:00 Urine Nitrate POSITIVE (NEGATIVE) H 06/23/18 17:00 Urine Bilirubin NEGATIVE (NEGATIVE) 06/23/18 17:00 Urine Urobilinogen 0.2 E.U./dL (0.2 - 1.0) 06/23/18 17:00 Ur Leukocyte Esterase LARGE (NEGATIVE) H 06/23/18 17:00 Urine RBC 2-5 /hpf (0-5) 06/23/18 17:00 Urine WBC 10-25 /hpf (0-5) H 06/23/18 17:00 Ur Epithelial Cells MODERATE /lpf (FEW) 06/23/18 17:00 Urine Bacteria MANY /hpf (NONE SEEN) H 06/23/18 17:00 Gentamicin 0.7 ug/mL (0.5-10.0) 06/26/18 11:55 Salicylates < 25.0 mg/L (30.0-100.0) L 06/23/18 16:00 Urine Opiates Screen NEGATIVE (NEGATIVE) 06/23/18 17:00 Urine Methadone Screen NEGATIVE (NEGATIVE) 06/23/18 17:00 Acetaminophen < 10.0 ug/mL (10.0-30.0) L 06/23/18 16:00 Ur Barbiturates Screen NEGATIVE (NEGATIVE) 06/23/18 17:00 Ur Tricyclics Screen NEGATIVE (NEGATIVE) 06/23/18 17:00 Ur Phencyclidine Scrn NEGATIVE (NEGATIVE) 06/23/18 17:00 Amphetamines Screen NEGATIVE (NEGATIVE) 06/23/18 17:00 U Methamphetamines Scrn NEGATIVE (NEGATIVE) 06/23/18 17:00 U Benzodiazepines Scrn NEGATIVE (NEGATIVE) 06/23/18 17:00 U Cocaine Metab Screen NEGATIVE (NEGATIVE) 06/23/18 17:00 U Cannabinoids Screen NEGATIVE (NEGATIVE) 06/23/18 17:00 - Physical Exam Vitals and I&O: Vital Signs Temp 98.3 F 06/27/18 04:00 Pulse 88 06/27/18 04:00 Resp 18 06/27/18 08:00 BP 119/67 06/27/18 04:00 Pulse Ox 98 06/27/18 04:00 Intake & Output 06/26/18 06/27/18 06/27/18 18:59 06:59 18:59 Intake Total 1052.5 Output Total 500 Balance 1052.5 -500 Weight (lbs) 51.965 kg 46.947 kg 46.947 kg Intake: Intake, IV Amount 102.5 Gentamicin 100 mg In 102.5 Sodium Chloride 0.9% 100 ml @ 100 mls/hr IV Q24H [facility] Rx#:[id number] Oral 950 Output: Urine 500 Other: # Voids 3 # Bowel Movements 1 0 Stool Characteristics Brown Weight Source Bedscale Bedscale Bedscale Active Medications: Current Medications Acetaminophen (Tylenol) 650 mg PO Q6H PRN PRN Reason: Pain (Moderate) Stop: 08/23/18 13:58 Last Admin: 06/27/18 02:05 Dose: 650 mg Carbidopa/Levodopa (Sinemet 25 Mg-250 Mg) 1 tab PO BID [facility] Stop: 08/23/18 19:14 Last Admin: 06/27/18 10:07 Dose: 1 tab Escitalopram Oxalate (Lexapro) 10 mg PO DAILY [facility] Stop: 08/23/18 08:59 Last Admin: 06/27/18 10:07 Dose: 10 mg Gentamicin Sulfate 100 mg/ (Sodium Chloride) 102.5 mls @ 100 mls/hr IV Q24H [facility] Stop: 08/25/18 15:59 Last Infusion: 06/26/18 16:57 Dose: Infused Sodium Chloride (Nacl 0.45%) 1,000 mls @ 125 mls/hr IV .Q8H [facility] Stop: 08/26/18 08:51 Last Admin: 06/27/18 10:07 Dose: 125 mls/hr Lactobacillus Rhamnosus (Culturelle 15b) 1 each PO DAILY [facility] Stop: 08/24/18 13:59 Last Admin: 06/27/18 10:07 Dose: 1 each Lorazepam (Ativan) 1 mg IVP Q6HR PRN; Protocol PRN Reason: Anxiety Stop: 08/22/18 22:08 Last Admin: 06/27/18 03:35 Dose: 1 mg Miscellaneous (Vte Chemical Prophylaxis Screen/ Admission) 1 ea PRN PRN PRN Reason: PROTOCOL Stop: 08/23/18 11:53 Miscellaneous (Probiotic Screen) 1 ea PRN PRN PRN Reason: PROTOCOL Stop: 08/24/18 11:17 Miscellaneous (Gentamicin Iv Per Pharmacy) 1 ea PRN PRN PRN Reason: PROTOCOL Stop: 08/24/18 11:39 Rivaroxaban (Xarelto) 20 mg PO DAILY [facility] Stop: 08/23/18 08:59 Last Admin: 06/27/18 10:07 Dose: 20 mg General: weak HEENT: NC/AT Neck: Supple Lungs: CTAB Cardiovascular: Normal S1, Normal S2 Abdomen: soft, non-tender Extremities: clear Neurological: no change - Procedures Procedures: Procedures Procedure Code Date GROUP PSYCHOTHERAPY 53807 11/24/15 GROUP PSYCHOTHERAPY GZHZZZZ 11/24/15 GROUP PSYCHOTHERAPY 92428 07/25/15 GROUP PSYCHOTHERAPY GZHZZZZ 07/25/15 Internal Medicine Assmt/Plan - Assessment Assessment: calcium channel OD UTI SI depression delusional htn - Plan Plan: as per order sheet Nutritional Asmnt/Malnutr-PDOC - Dietary Evaluation Malnutrition Findings (Please click <Entered> for more info): Nutritional Asmnt/Malnutrition Start: 06/26/18 14: 49 Text: Status: Complete Freq: Protocol: Document 06/26/18 15:25 LCHENG (Rec: 06/26/18 15:47 LCHENG [email or web address]) Nutritional Asmnt/Malnutrition Patient General Information Nutritional Screening Moderate Risk Diagnosis calcium channel overdose Pertinent Medical Hx/Surgical Hx HTN, parkinson, h/o alcohol abuse, L shoulder surgery, depression Subjective Information Pt seen lying in bed, shaking, verbal but confused and disoriented, has 1:1 sitter at bedside. Per sitter, pt was not eating much in the past two days, PO intake 20-40%. pt appeared thin. Current Diet Order/ Nutrition Support [facility] soft chopped. Pertinent Medications culturelle, lexapro Pertinent Labs 06/26 Cl 109, BUN 27 (trending up), glucose 180 (trending up) 11 Mg 1.8 06/24 Mg 1.6 Nutritional Hx/Data Height 1.57 m Height (Calculated Centimeters) 157.5 Current Weight (lbs) 51.71 kg Weight (Calculated Kilograms) 51.7 Weight (Calculated Grams) 03511.5 [place] Body Weight 110 Body Mass Index (BMI) 20.8 Weight Status Approriate GI Symptoms GI Symptoms None Last BM 06/24 Difficult in: None Skin Integrity/Comment: pressure area reddened to medial occipital, laceration to right ear Current %PO Poor (25-49%) Estimated Nutritional Goals BEE in Kcals: Using Current wt Calories/Kcals/Kg 25-30 Kcals Calculated 9496-7784 Protein: Using Current wt Protein g/k Protein Calculated 52 Fluid: ml 1300-1560ml (1ml/kcal) Nutritional Problem 2. Problem Problem altered nutrition related labs Etiology electrolytes/fluid imbalance, hyperglycemia Signs/Symptoms: Cl 109, BUN 27, Glucose 180, Mg 1.8 1. Problem Problem inadequate food intake Etiology possible confusion Signs/Symptoms: PO intake 20-40% Malnutrition Alert Is there a minimum of two criteria No selected? Query Text:Check all the applicable criteria. A minimum of two criteria are recommended for diagnosis of either severe or non-severe malnutrition. Malnutrition Related to Morbid Obesity Malnutrition related to morbid obesity No Intervention/Recommendation Comments 1. Continue with [facility] soft chopped diet as ordered. Assist pt with all meals ane encourage eating and drinking. Add Ensure TID with meals to increase kcal/protein intake. MD to consider appetite stimulant if PO itnake continue <50%. 2. Monitor PO intake, wt, labs and skin integrity 3. F/U as high risk in 2-3 days, 06/28-06/30 Expected Outcomes/Goals Expected Outcomes/Goals 1. PO intake to improve and meet at least 75% of nutritional needs. 2. Wt stability, skin to remain intact, labs to approach WNL.
--- NOTE | 2018-06-28 02:09 | Infectious Disease Prog Note ---
Infectious Disease Subjective - Review of Systems Service Date: 06/27/18 Subjective: No new change, no fever/ Infectious Disease Objective - Results Result Diagrams: 06/27/18 04:55 06/28/18 06:13 Recent Labs: Laboratory Last Values WBC 8.7 Th/cmm (4.8-10.8) 06/27/18 04:55 RBC 4.83 Mil/cmm (3.80-5.20) 06/27/18 04:55 Hgb 14.0 gm/dL (12-16) 06/27/18 04:55 Hct 42.4 % (41.0-60) 06/27/18 04:55 MCV 87.8 fl (81-100) 06/27/18 04:55 MCH 29.0 pg (27.0-31.0) 06/27/18 04:55 MCHC Differential 33.0 pg (28.0-36.0) 06/27/18 04:55 RDW 12.9 % (11.5-20.0) 06/27/18 04:55 Plt Count 212 Th/cmm (150-400) 06/27/18 04:55 MPV 7.8 fl 06/27/18 04:55 Add Manual Diff YES 06/24/18 04:00 Neutrophils % 76.4 % (40.0-80.0) 06/27/18 04:55 Band Neutrophils % 0 % (0-10) 06/24/18 04:00 Lymphocytes % 15.8 % (20.0-50.0) L 06/27/18 04:55 Monocytes % 7.5 % (2.0-10.0) 06/27/18 04:55 Eosinophils % 0.2 % (0.0-5.0) 06/27/18 04:55 Basophils % 0.1 % (0.0-2.0) 06/27/18 04:55 Neutrophils (Manual) 53 % (40-80) 06/24/18 04:00 Lymphocytes 41 % (20-50) 06/24/18 04:00 Monocytes 5 % (2-10) 06/24/18 04:00 Eosinophils 1 % (0-5) 06/24/18 04:00 PT 12.7 SECONDS (9.5-11.5) H 06/23/18 18:55 INR 1.23 (0.5-1.4) 06/23/18 18:55 PTT (Actin FS) 26.7 SECONDS (26.0-38.0) 06/23/18 18:55 Sodium 152 mEq/L (136-145) H 06/27/18 04:55 Potassium 3.6 mEq/L (3.5-5.1) 06/27/18 04:55 Chloride 115 mEq/L (98-107) H 06/27/18 04:55 Carbon Dioxide 21.5 mEq/L (21.0-31.0) 06/27/18 04:55 Anion Gap 19.1 (7.0-16.0) H 06/27/18 04:55 BUN 52 mg/dL (7-25) H 06/27/18 04:55 Creatinine 1.4 mg/dL (0.6-1.2) H 06/27/18 04:55 Est GFR ( Amer) TNP 06/27/18 04:55 Est GFR (Non-Af Amer) TNP 06/27/18 04:55 BUN/Creatinine Ratio 37.1 06/27/18 04:55 Glucose 146 mg/dL (70-105) H 06/27/18 04:55 POC Glucose 96 MG/DL (70 - 105) 06/23/18 20:24 Calcium 9.8 mg/dL (8.6-10.3) 06/27/18 04:55 Phosphorus 3.5 mg/dL (2.5-5.0) 06/23/18 16:00 Magnesium 1.8 mg/dL (1.9-2.7) L 06/25/18 05:15 Total Bilirubin 0.7 mg/dL (0.3-1.0) 06/23/18 16:00 AST 16 U/L (13-39) 06/23/18 16:00 ALT 7 U/L (7-52) 06/23/18 16:00 Alkaline Phosphatase 87 U/L (34-104) 06/23/18 16:00 Creatine Kinase 92 U/L (30-223) 06/24/18 04:00 Troponin I < 0.01 ng/mL (0.01-0.05) L 06/24/18 04:00 Total Protein 6.5 gm/dL (6.0-8.3) 06/23/18 16:00 Albumin 3.9 gm/dL (3.7-5.3) 06/23/18 16:00 Globulin 2.6 gm/dL 06/23/18 16:00 Albumin/Globulin Ratio 1.5 (1.0-1.8) 06/23/18 16:00 Urine Source CATH 06/23/18 17:00 Urine Color YELLOW 06/23/18 17:00 Urine Clarity HAZY (CLEAR) 06/23/18 17:00 Urine pH 6.0 (4.6 - 8.0) 06/23/18 17:00 Ur Specific [place] 1.025 (1.005-1.030) 06/23/18 17:00 Urine Protein TRACE mg/dL (NEGATIVE) 06/23/18 17:00 Urine Glucose (UA) NEGATIVE mg/dL (NEGATIVE) 06/23/18 17:00 Urine Ketones TRACE mg/dL (NEGATIVE) 06/23/18 17:00 Urine Blood TRACE (NEGATIVE) 06/23/18 17:00 Urine Nitrate POSITIVE (NEGATIVE) H 06/23/18 17:00 Urine Bilirubin NEGATIVE (NEGATIVE) 06/23/18 17:00 Urine Urobilinogen 0.2 E.U./dL (0.2 - 1.0) 06/23/18 17:00 Ur Leukocyte Esterase LARGE (NEGATIVE) H 06/23/18 17:00 Urine RBC 2-5 /hpf (0-5) 06/23/18 17:00 Urine WBC 10-25 /hpf (0-5) H 06/23/18 17:00 Ur Epithelial Cells MODERATE /lpf (FEW) 06/23/18 17:00 Urine Bacteria MANY /hpf (NONE SEEN) H 06/23/18 17:00 Gentamicin 0.7 ug/mL (0.5-10.0) 06/26/18 11:55 Gentamicin Peak 6.1 ug/ml (4.0-8.0) 06/27/18 17:32 Gentamicin Trough 1.3 ug/ml (0.2-2.0) 06/27/18 15:41 Salicylates < 25.0 mg/L (30.0-100.0) L 06/23/18 16:00 Urine Opiates Screen NEGATIVE (NEGATIVE) 06/23/18 17:00 Urine Methadone Screen NEGATIVE (NEGATIVE) 06/23/18 17:00 Acetaminophen < 10.0 ug/mL (10.0-30.0) L 06/23/18 16:00 Ur Barbiturates Screen NEGATIVE (NEGATIVE) 06/23/18 17:00 Ur Tricyclics Screen NEGATIVE (NEGATIVE) 06/23/18 17:00 Ur Phencyclidine Scrn NEGATIVE (NEGATIVE) 06/23/18 17:00 Amphetamines Screen NEGATIVE (NEGATIVE) 06/23/18 17:00 U Methamphetamines Scrn NEGATIVE (NEGATIVE) 06/23/18 17:00 U Benzodiazepines Scrn NEGATIVE (NEGATIVE) 06/23/18 17:00 U Cocaine Metab Screen NEGATIVE (NEGATIVE) 06/23/18 17:00 U Cannabinoids Screen NEGATIVE (NEGATIVE) 06/23/18 17:00 - Physical Exam Vitals and I&O: Vital Signs Temp 98.2 F 06/28/18 00:00 Pulse 77 06/28/18 00:00 Resp 18 06/28/18 00:00 BP 116/65 06/28/18 00:00 Pulse Ox 98 06/28/18 00:00 Intake & Output 06/27/18 06/27/18 06/28/18 06:59 18:59 06:59 Intake Total 1100 Output Total 500 500 Balance -500 600 Weight (lbs) 46.947 kg 46.72 kg Intake: Intake, IV Amount 1000 Sodium Chloride 0.45% 1, 1000 000 ml @ 125 mls/hr IV . Q8H [facility] Rx#:[id number] Oral 100 Output: Urine 500 500 Other: # Bowel Movements 0 1 Stool Characteristics Brown Weight Source Bedscale Bedscale Active Medications: Current Medications Acetaminophen (Tylenol) 650 mg PO Q6H PRN PRN Reason: Pain (Moderate) Stop: 08/23/18 13:58 Last Admin: 06/27/18 02:05 Dose: 650 mg Carbidopa/Levodopa (Sinemet 25 Mg-250 Mg) 1 tab PO BID [facility] Stop: 08/23/18 19:14 Last Admin: 06/27/18 16:45 Dose: 1 tab Escitalopram Oxalate (Lexapro) 10 mg PO DAILY [facility] Stop: 08/23/18 08:59 Last Admin: 06/27/18 10:07 Dose: 10 mg Gentamicin Sulfate 100 mg/ (Sodium Chloride) 102.5 mls @ 100 mls/hr IV Q24H [facility] Stop: 08/25/18 15:59 Last Admin: 06/27/18 16:00 Dose: 100 mls/hr Sodium Chloride (Nacl 0.45%) 1,000 mls @ 125 mls/hr IV .Q8H [facility] Stop: 08/26/18 08:51 Last Admin: 06/27/18 19:06 Dose: 125 mls/hr Lactobacillus Rhamnosus (Culturelle 15b) 1 each PO DAILY [facility] Stop: 08/24/18 13:59 Last Admin: 06/27/18 10:07 Dose: 1 each Lorazepam (Ativan) 1 mg IVP Q6HR PRN; Protocol PRN Reason: Anxiety Stop: 08/22/18 22:08 Last Admin: 06/27/18 03:35 Dose: 1 mg Miscellaneous (Vte Chemical Prophylaxis Screen/ Admission) 1 [facility] PRN PRN PRN Reason: PROTOCOL Stop: 08/23/18 11:53 Miscellaneous (Probiotic Screen) 1 [facility] PRN PRN PRN Reason: PROTOCOL Stop: 08/24/18 11:17 Miscellaneous (Gentamicin Iv Per Pharmacy) 1 [facility] PRN PRN PRN Reason: PROTOCOL Stop: 08/24/18 11:39 Rivaroxaban (Xarelto) 20 mg PO DAILY [facility] Stop: 08/23/18 08:59 Last Admin: 06/27/18 10:07 Dose: 20 mg General: no acute distress, well developed, well nourished HEENT: atraumatic, normocephalic, PERRLA, EOMI Neck: supple, no thyromegaly Cardiovascular: S1S2, regular Lungs: clear to auscultation bilaterally, clear to percussion Abdomen: soft, no tender, no distended Extremities: no cyanosis, no clubbing, no edema Neurological: awake, alert, oriented Skin: intact - Procedures Procedures: Procedures Procedure Code Date GROUP PSYCHOTHERAPY 88125 11/24/15 GROUP PSYCHOTHERAPY GZHZZZZ 11/24/15 GROUP PSYCHOTHERAPY 18284 07/25/15 GROUP PSYCHOTHERAPY GZHZZZZ 07/25/15 Infectious Disease Assmt/Plan - Problem List Patient Problems: All Active Problems MEDICATION EXCESS AND MISAPPROPRIATION (Acute) - Assessment Assessment: 1. UTI, 2. Hypotesion improved. 3. Depression. 4. H/o HTN. 5. Parkinsons disease. 6. Dementia. - Plan Plan: Continue gentamicin D3/7. change gentamicin to macrobid po, when get transferred to the [facility]. Nutritional Asmnt/Malnutr-PDOC - Dietary Evaluation Malnutrition Findings (Please click <Entered> for more info): Nutritional Asmnt/Malnutrition Start: 06/26/18 14: 49 Text: Status: Complete Freq: Protocol: Document 06/26/18 15:25 FAITH (Rec: 06/26/18 15:47 HEN [email or web address]) Nutritional Asmnt/Malnutrition Patient General Information Nutritional Screening Moderate Risk Diagnosis calcium channel overdose Pertinent Medical Hx/Surgical Hx HTN, parkinson, h/o alcohol abuse, L shoulder surgery, depression Subjective Information Pt seen lying in bed, shaking, verbal but confused and disoriented, has 1:1 sitter at bedside. Per sitter, pt was not eating much in the past two days, PO intake 20-40%. pt appeared thin. Current Diet Order/ Nutrition Support [facility] soft chopped. Pertinent Medications culturelle, lexapro Pertinent Labs 06/26 Cl 109, BUN 27 (trending up), glucose 180 (trending up) 06/25 Mg 1.8 06/24 Mg 1.6 Nutritional Hx/Data Height 1.57 m Height (Calculated Centimeters) 157.5 Current Weight (lbs) 51.71 kg Weight (Calculated Kilograms) 51.7 Weight (Calculated Grams) 06329.5 [place] Body Weight 110 Body Mass Index (BMI) 20.8 Weight Status Approriate GI Symptoms GI Symptoms None Last BM 06/24 Difficult in: None Skin Integrity/Comment: pressure area reddened to medial occipital, laceration to right ear Current %PO Poor (25-49%) Estimated Nutritional Goals BEE in Kcals: Using Current wt Calories/Kcals/Kg 25-30 Kcals Calculated 6047-0286 Protein: Using Current wt Protein g/k Protein Calculated 52 Fluid: ml 1300-1560ml (1ml/kcal) Nutritional Problem 2. Problem Problem altered nutrition related labs Etiology electrolytes/fluid imbalance, hyperglycemia Signs/Symptoms: Cl 109, BUN 27, Glucose 180, Mg 1.8 1. Problem Problem inadequate food intake Etiology possible confusion Signs/Symptoms: PO intake 20-40% Malnutrition Alert Is there a minimum of two criteria No selected? Query Text:Check all the applicable criteria. A minimum of two criteria are recommended for diagnosis of either severe or non-severe malnutrition. Malnutrition Related to Morbid Obesity Malnutrition related to morbid obesity No Intervention/Recommendation Comments 1. Continue with [facility] soft chopped diet as ordered. Assist pt with all meals ane encourage eating and drinking. Add Ensure TID with meals to increase kcal/protein intake. MD to consider appetite stimulant if PO itnake continue <50%. 2. Monitor PO intake, wt, labs and skin integrity 3. F/U as high risk in 2-3 days, 06/28-06/30 Expected Outcomes/Goals Expected Outcomes/Goals 1. PO intake to improve and meet at least 75% of nutritional needs. 2. Wt stability, skin to remain intact, labs to approach WNL.
[2018-06-28] MEDS: Sodium Chloride 0.45% 1,000 ML IV SCH ×2 (05:45→16:26)
[2018-06-28 06:52] LABS: ANION GAP 13.6 (7.0-16.0); BUN - UREA NITROGEN 55 mg/dL (7-25); CALCIUM SERUM 9.6 mg/dL (8.6-10.3); CARBON DIOXIDE 25.2 mEq/L (21.0-31.0); CHLORIDE 116 mEq/L (98-107); CREATININE - SERUM 0.9 mg/dL (0.6-1.2); GLUCOSE 110 mg/dL (70-105); POTASSIUM SERUM 3.8 mEq/L (3.5-5.1); SODIUM SERUM 151 mEq/L (136-145)
[2018-06-28] MEDS: Lactobacillus Rhamnosus GG 15 Billion CFU CAP.SPRINK PO SCH (09:11)
--- NOTE | 2018-06-28 21:28 | Infectious Disease Prog Note ---
Infectious Disease Subjective - Review of Systems Service Date: 06/28/18 Subjective: No new change, no fever/ Infectious Disease Objective - Results Result Diagrams: 06/27/18 04:55 06/28/18 06:13 Recent Labs: Laboratory Last Values WBC 8.7 Th/cmm (4.8-10.8) 06/27/18 04:55 RBC 4.83 Mil/cmm (3.80-5.20) 06/27/18 04:55 Hgb 14.0 gm/dL (12-16) 06/27/18 04:55 Hct 42.4 % (41.0-60) 06/27/18 04:55 MCV 87.8 fl (81-100) 06/27/18 04:55 MCH 29.0 pg (27.0-31.0) 06/27/18 04:55 MCHC Differential 33.0 pg (28.0-36.0) 06/27/18 04:55 RDW 12.9 % (11.5-20.0) 06/27/18 04:55 Plt Count 212 Th/cmm (150-400) 06/27/18 04:55 MPV 7.8 fl 06/27/18 04:55 Add Manual Diff YES 06/24/18 04:00 Neutrophils % 76.4 % (40.0-80.0) 06/27/18 04:55 Band Neutrophils % 0 % (0-10) 06/24/18 04:00 Lymphocytes % 15.8 % (20.0-50.0) L 06/27/18 04:55 Monocytes % 7.5 % (2.0-10.0) 06/27/18 04:55 Eosinophils % 0.2 % (0.0-5.0) 06/27/18 04:55 Basophils % 0.1 % (0.0-2.0) 06/27/18 04:55 Neutrophils (Manual) 53 % (40-80) 06/24/18 04:00 Lymphocytes 41 % (20-50) 06/24/18 04:00 Monocytes 5 % (2-10) 06/24/18 04:00 Eosinophils 1 % (0-5) 06/24/18 04:00 PT 12.7 SECONDS (9.5-11.5) H 06/23/18 18:55 INR 1.23 (0.5-1.4) 06/23/18 18:55 PTT (Actin FS) 26.7 SECONDS (26.0-38.0) 06/23/18 18:55 Sodium 151 mEq/L (136-145) H 06/28/18 06:13 Potassium 3.8 mEq/L (3.5-5.1) 06/28/18 06:13 Chloride 116 mEq/L (98-107) H 06/28/18 06:13 Carbon Dioxide 25.2 mEq/L (21.0-31.0) 06/28/18 06:13 Anion Gap 13.6 (7.0-16.0) 06/28/18 06:13 BUN 55 mg/dL (7-25) H 06/28/18 06:13 Creatinine 0.9 mg/dL (0.6-1.2) 06/28/18 06:13 Est GFR ( Amer) TNP 06/28/18 06:13 Est GFR (Non-Af Amer) TNP 06/28/18 06:13 BUN/Creatinine Ratio 61.1 06/28/18 06:13 Glucose 110 mg/dL (70-105) H 06/28/18 06:13 POC Glucose 139 MG/DL (70 - 105) H 06/28/18 13:41 Calcium 9.6 mg/dL (8.6-10.3) 06/28/18 06:13 Phosphorus 3.5 mg/dL (2.5-5.0) 06/23/18 16:00 Magnesium 1.8 mg/dL (1.9-2.7) L 06/25/18 05:15 Total Bilirubin 0.7 mg/dL (0.3-1.0) 06/23/18 16:00 AST 16 U/L (13-39) 06/23/18 16:00 ALT 7 U/L (7-52) 06/23/18 16:00 Alkaline Phosphatase 87 U/L (34-104) 06/23/18 16:00 Creatine Kinase 92 U/L (30-223) 06/24/18 04:00 Troponin I < 0.01 ng/mL (0.01-0.05) L 06/24/18 04:00 Total Protein 6.5 gm/dL (6.0-8.3) 06/23/18 16:00 Albumin 3.9 gm/dL (3.7-5.3) 06/23/18 16:00 Globulin 2.6 gm/dL 06/23/18 16:00 Albumin/Globulin Ratio 1.5 (1.0-1.8) 06/23/18 16:00 Urine Source CATH 06/23/18 17:00 Urine Color YELLOW 06/23/18 17:00 Urine Clarity HAZY (CLEAR) 06/23/18 17:00 Urine pH 6.0 (4.6 - 8.0) 06/23/18 17:00 Ur Specific [place] 1.025 (1.005-1.030) 06/23/18 17:00 Urine Protein TRACE mg/dL (NEGATIVE) 06/23/18 17:00 Urine Glucose (UA) NEGATIVE mg/dL (NEGATIVE) 06/23/18 17:00 Urine Ketones TRACE mg/dL (NEGATIVE) 06/23/18 17:00 Urine Blood TRACE (NEGATIVE) 06/23/18 17:00 Urine Nitrate POSITIVE (NEGATIVE) H 06/23/18 17:00 Urine Bilirubin NEGATIVE (NEGATIVE) 06/23/18 17:00 Urine Urobilinogen 0.2 E.U./dL (0.2 - 1.0) 06/23/18 17:00 Ur Leukocyte Esterase LARGE (NEGATIVE) H 06/23/18 17:00 Urine RBC 2-5 /hpf (0-5) 06/23/18 17:00 Urine WBC 10-25 /hpf (0-5) H 06/23/18 17:00 Ur Epithelial Cells MODERATE /lpf (FEW) 06/23/18 17:00 Urine Bacteria MANY /hpf (NONE SEEN) H 06/23/18 17:00 Gentamicin 0.7 ug/mL (0.5-10.0) 06/26/18 11:55 Gentamicin Peak 6.1 ug/ml (4.0-8.0) 06/27/18 17:32 Gentamicin Trough 1.3 ug/ml (0.2-2.0) 06/27/18 15:41 Salicylates < 25.0 mg/L (30.0-100.0) L 06/23/18 16:00 Urine Opiates Screen NEGATIVE (NEGATIVE) 06/23/18 17:00 Urine Methadone Screen NEGATIVE (NEGATIVE) 06/23/18 17:00 Acetaminophen < 10.0 ug/mL (10.0-30.0) L 06/23/18 16:00 Ur Barbiturates Screen NEGATIVE (NEGATIVE) 06/23/18 17:00 Ur Tricyclics Screen NEGATIVE (NEGATIVE) 06/23/18 17:00 Ur Phencyclidine Scrn NEGATIVE (NEGATIVE) 06/23/18 17:00 Amphetamines Screen NEGATIVE (NEGATIVE) 06/23/18 17:00 U Methamphetamines Scrn NEGATIVE (NEGATIVE) 06/23/18 17:00 U Benzodiazepines Scrn NEGATIVE (NEGATIVE) 06/23/18 17:00 U Cocaine Metab Screen NEGATIVE (NEGATIVE) 06/23/18 17:00 U Cannabinoids Screen NEGATIVE (NEGATIVE) 06/23/18 17:00 - Physical Exam Vitals and I&O: Vital Signs Temp 97.3 F 06/28/18 20:55 Pulse 66 06/28/18 20:55 Resp 18 06/28/18 20:55 BP 113/66 06/28/18 20:55 Pulse Ox 94 06/28/18 20:55 Intake & Output 06/28/18 06/28/18 06/29/18 06:59 18:59 06:59 Intake Total 1000 1102.5 350 Output Total 400 350 Balance 600 1102.5 0 Weight (lbs) 47.627 kg 47.627 kg Intake: Intake, IV Amount 1000 1102.5 Gentamicin 100 mg In 102.5 Sodium Chloride 0.9% 100 ml @ 100 mls/hr IV Q24H [facility] Rx#:[id number] Sodium Chloride 0.45% 1, 1000 1000 000 ml @ 125 mls/hr IV . Q8H [facility] Rx#:[id number] Oral 350 Output: Urine 400 350 Other: # Bowel Movements 1 1 Stool Characteristics Soft Soft Weight Source Bedscale Bedscale Active Medications: Current Medications Acetaminophen (Tylenol) 650 mg PO Q6H PRN PRN Reason: Pain (Moderate) Stop: 08/23/18 13:58 Last Admin: 06/27/18 02:05 Dose: 650 mg Carbidopa/Levodopa (Sinemet 25 Mg-250 Mg) 1 tab PO BID [facility] Stop: 08/23/18 19:14 Last Admin: 06/28/18 16:25 Dose: 1 tab Escitalopram Oxalate (Lexapro) 10 mg PO DAILY [facility] Stop: 08/23/18 08:59 Last Admin: 06/28/18 09:11 Dose: 10 mg Gentamicin Sulfate 100 mg/ (Sodium Chloride) 102.5 mls @ 100 mls/hr IV Q24H [facility] Stop: 08/25/18 15:59 Last Infusion: 06/28/18 18:57 Dose: Infused Sodium Chloride (Nacl 0.45%) 1,000 mls @ 125 mls/hr IV .Q8H [facility] Stop: 08/26/18 08:51 Last Admin: 06/28/18 16:26 Dose: 125 mls/hr Lactobacillus Rhamnosus (Culturelle 15b) 1 each PO DAILY [facility] Stop: 08/24/18 13:59 Last Admin: 06/28/18 09:11 Dose: 1 each Lorazepam (Ativan) 1 mg IVP Q6HR PRN; Protocol PRN Reason: Anxiety Stop: 08/22/18 22:08 Last Admin: 06/28/18 13:48 Dose: 1 mg Miscellaneous (Vte Chemical Prophylaxis Screen/ Admission) 1 ea PRN PRN PRN Reason: PROTOCOL Stop: 08/23/18 11:53 Miscellaneous (Probiotic Screen) 1 ea PRN PRN PRN Reason: PROTOCOL Stop: 08/24/18 11:17 Miscellaneous (Gentamicin Iv Per Pharmacy) 1 ea PRN PRN PRN Reason: PROTOCOL Stop: 08/24/18 11:39 Rivaroxaban (Xarelto) 20 mg PO DAILY [facility] Stop: 08/23/18 08:59 Last Admin: 06/28/18 09:11 Dose: 20 mg General: no acute distress, well developed, well nourished HEENT: atraumatic, normocephalic, PERRLA, EOMI Neck: supple, no thyromegaly Cardiovascular: S1S2, regular Lungs: clear to auscultation bilaterally, clear to percussion Abdomen: soft, no tender, no distended Extremities: no cyanosis, no clubbing, no edema Neurological: other (confused.) Skin: intact - Procedures Procedures: Procedures Procedure Code Date GROUP PSYCHOTHERAPY 27207 11/24/15 GROUP PSYCHOTHERAPY GZHZZZZ 11/24/15 GROUP PSYCHOTHERAPY 20171 07/25/15 GROUP PSYCHOTHERAPY GZHZZZZ 12/07/15 Infectious Disease Assmt/Plan - Problem List Patient Problems: All Active Problems MEDICATION EXCESS AND MISAPPROPRIATION (Acute) - Assessment Assessment: 1. UTI, 2. Hypotesion improved. 3. Depression. 4. H/o HTN. 5. Parkinsons disease. 6. Dementia. - Plan Plan: Continue gentamicin D4/7. change gentamicin to macrobid po, when get transferred to the [facility]. Nutritional Asmnt/Malnutr-PDOC - Dietary Evaluation Malnutrition Findings (Please click <Entered> for more info): Nutritional Asmnt/Malnutrition Start: 06/26/18 14: 49 Text: Status: Complete Freq: Protocol: Document 06/26/18 15:25 LCHEN (Rec: 06/26/18 15:47 LCHENG [email or web address]) Nutritional Asmnt/Malnutrition Patient General Information Nutritional Screening Moderate Risk Diagnosis calcium channel overdose Pertinent Medical Hx/Surgical Hx HTN, parkinson, h/o alcohol abuse, L shoulder surgery, depression Subjective Information Pt seen lying in bed, shaking, verbal but confused and disoriented, has 1:1 sitter at bedside. Per sitter, pt was not eating much in the past two days, PO intake 20-40%. pt appeared thin. Current Diet Order/ Nutrition Support [facility] soft chopped. Pertinent Medications culturelle, lexapro Pertinent Labs 06/26 Cl 109, BUN 27 (trending up), glucose 180 (trending up) 06/25 Mg 1.8 06/24 Mg 1.6 Nutritional Hx/Data Height 1.57 m Height (Calculated Centimeters) 157.5 Current Weight (lbs) 51.71 kg Weight (Calculated Kilograms) 51.7 Weight (Calculated Grams) 84497.5 [place] Body Weight 110 Body Mass Index (BMI) 20.8 Weight Status Approriate GI Symptoms GI Symptoms None Last BM 06/24 Difficult in: None Skin Integrity/Comment: pressure area reddened to medial occipital, laceration to right ear Current %PO Poor (25-49%) Estimated Nutritional Goals BEE in Kcals: Using Current wt Calories/Kcals/Kg 25-30 Kcals Calculated 9665-5707 Protein: Using Current wt Protein g/k Protein Calculated 52 Fluid: ml 1300-1560ml (1ml/kcal) Nutritional Problem 2. Problem Problem altered nutrition related labs Etiology electrolytes/fluid imbalance, hyperglycemia Signs/Symptoms: Cl 109, BUN 27, Glucose 180, Mg 1.8 1. Problem Problem inadequate food intake Etiology possible confusion Signs/Symptoms: PO intake 20-40% Malnutrition Alert Is there a minimum of two criteria No selected? Query Text:Check all the applicable criteria. A minimum of two criteria are recommended for diagnosis of either severe or non-severe malnutrition. Malnutrition Related to Morbid Obesity Malnutrition related to morbid obesity No Intervention/Recommendation Comments 1. Continue with [facility] soft chopped diet as ordered. Assist pt with all meals ane encourage eating and drinking. Add Ensure TID with meals to increase kcal/protein intake. MD to consider appetite stimulant if PO itnake continue <50%. 2. Monitor PO intake, wt, labs and skin integrity 3. F/U as high risk in 2-3 days, 06/28-06/30 Expected Outcomes/Goals Expected Outcomes/Goals 1. PO intake to improve and meet at least 75% of nutritional needs. 2. Wt stability, skin to remain intact, labs to approach WNL.
--- NOTE | 2018-06-28 23:31 | Progress Notes ---
DATE: 06/28/2018 SUBJECTIVE: The patient was seen in her room. The patient is awake, but forgetful and appears to be confused, appears calm, but guarded. Otherwise, the patient is in no acute distress. OBJECTIVE: VITAL SIGNS: Temperature 98.9, heart rate of 81, blood pressure 196/77, respirations 17, and 98% on room air. HEENT: Head is atraumatic and normocephalic. Eyes: Bilateral conjunctivae are clear. Bilateral pupils are equally round and reactive. NECK: Supple. No JVD. CARDIOVASCULAR: S1 and S2, without murmur. PULMONARY: Clear to auscultation. GASTROINTESTINAL: Soft and nontender without guarding. Positive bowel sounds. MUSCULOSKELETAL: No clubbing. No cyanosis noted. ASSESSMENT: 1. Medication overdose. 2. Suicidal ideation. 3. Depression. 4. Urinary tract infection. 5. Parkinson's disease. 6. Hypertension. 7. Atrial fibrillation. PLAN: We will continue current treatment. We will continue antibiotics per ID doctor. We will continue to follow up with a psychiatrist to monitor the patient's condition and behavior. We will put the patient on clonidine 0.1 mg every 8 hours as needed for blood pressure maintenance. Treatment plans were discussed with the patient's nurse. Treatment plans were discussed with Dr. Gray. JOB# [id number]
--- NOTE | 2018-06-29 00:43 | Progress Notes ---
DATE: 06/28/2018 PSYCHIATRIC PROGRESS NOTE SUBJECTIVE: Staff was spoken to. The patient is interviewed. Mood is noted to be depressed. Affect is constricted. The patient is isolative and withdrawn. The patient's verbalizations are very minimal. The patient is staring into the space. Coping skills at this time are noted to be poor. No side effects to the medications are noted. ASSESSMENT: The patient is still very confused and depressed. PLAN: To continue the patient with the supportive therapy. I encouraged the patient to verbalize the concerns rather than to act out. JOB# [id number]
[2018-06-29] MEDS: Sodium Chloride 0.45% 1,000 ML IV SCH ×4 (00:50→15:08)
[2018-06-29 06:41] LABS: ANION GAP 12.2 (7.0-16.0); BUN - UREA NITROGEN 39 mg/dL (7-25); CARBON DIOXIDE 23.5 mEq/L (21.0-31.0); CHLORIDE 111 mEq/L (98-107); CREATININE - SERUM 0.7 mg/dL (0.6-1.2); GLUCOSE 101 mg/dL (70-105); POTASSIUM SERUM 3.7 mEq/L (3.5-5.1); SODIUM SERUM 143 mEq/L (136-145)
[2018-06-29] MEDS: Lactobacillus Rhamnosus GG 15 Billion CFU CAP.SPRINK PO SCH (08:50)
--- NOTE | 2018-06-29 11:22 | Internal Medicine Prog Note ---
Internal Medicine Subjective - Subjective Patient seen and examined:: chart reviewed (no change) Patient is:: awake, confused Per staff patient has:: no adverse event Internal Medicine Objective - Results Result Diagrams: 06/27/18 04:55 06/29/18 05:54 Recent Labs: Laboratory Last Values WBC 8.7 Th/cmm (4.8-10.8) 06/27/18 04:55 RBC 4.83 Mil/cmm (3.80-5.20) 06/27/18 04:55 Hgb 14.0 gm/dL (12-16) 06/27/18 04:55 Hct 42.4 % (41.0-60) 06/27/18 04:55 MCV 87.8 fl (81-100) 06/27/18 04:55 MCH 29.0 pg (27.0-31.0) 06/27/18 04:55 MCHC Differential 33.0 pg (28.0-36.0) 06/27/18 04:55 RDW 12.9 % (11.5-20.0) 06/27/18 04:55 Plt Count 212 Th/cmm (150-400) 06/27/18 04:55 MPV 7.8 fl 06/27/18 04:55 Add Manual Diff YES 06/24/18 04:00 Neutrophils % 76.4 % (40.0-80.0) 06/27/18 04:55 Band Neutrophils % 0 % (0-10) 06/24/18 04:00 Lymphocytes % 15.8 % (20.0-50.0) L 06/27/18 04:55 Monocytes % 7.5 % (2.0-10.0) 06/27/18 04:55 Eosinophils % 0.2 % (0.0-5.0) 06/27/18 04:55 Basophils % 0.1 % (0.0-2.0) 06/27/18 04:55 Neutrophils (Manual) 53 % (40-80) 06/24/18 04:00 Lymphocytes 41 % (20-50) 06/24/18 04:00 Monocytes 5 % (2-10) 06/24/18 04:00 Eosinophils 1 % (0-5) 06/24/18 04:00 PT 12.7 SECONDS (9.5-11.5) H 06/23/18 18:55 INR 1.23 (0.5-1.4) 06/23/18 18:55 PTT (Actin FS) 26.7 SECONDS (26.0-38.0) 06/23/18 18:55 Sodium 143 mEq/L (136-145) 06/29/18 05:54 Potassium 3.7 mEq/L (3.5-5.1) 06/29/18 05:54 Chloride 111 mEq/L (98-107) H 06/29/18 05:54 Carbon Dioxide 23.5 mEq/L (21.0-31.0) 06/29/18 05:54 Anion Gap 12.2 (7.0-16.0) 06/29/18 05:54 BUN 39 mg/dL (7-25) H 06/29/18 05:54 Creatinine 0.7 mg/dL (0.6-1.2) 06/29/18 05:54 Est GFR ( Amer) TNP 06/29/18 05:54 Est GFR (Non-Af Amer) TNP 06/29/18 05:54 BUN/Creatinine Ratio 55.7 06/29/18 05:54 Glucose 101 mg/dL (70-105) 06/29/18 05:54 POC Glucose 139 MG/DL (70 - 105) H 06/28/18 13:41 Calcium 9.0 mg/dL (8.6-10.3) 06/29/18 05:54 Phosphorus 3.5 mg/dL (2.5-5.0) 06/23/18 16:00 Magnesium 1.8 mg/dL (1.9-2.7) L 06/25/18 05:15 Total Bilirubin 0.7 mg/dL (0.3-1.0) 06/23/18 16:00 AST 16 U/L (13-39) 06/23/18 16:00 ALT 7 U/L (7-52) 06/23/18 16:00 Alkaline Phosphatase 87 U/L (34-104) 06/23/18 16:00 Creatine Kinase 92 U/L (30-223) 06/24/18 04:00 Troponin I < 0.01 ng/mL (0.01-0.05) L 06/24/18 04:00 Total Protein 6.5 gm/dL (6.0-8.3) 06/23/18 16:00 Albumin 3.9 gm/dL (3.7-5.3) 06/23/18 16:00 Globulin 2.6 gm/dL 06/23/18 16:00 Albumin/Globulin Ratio 1.5 (1.0-1.8) 06/23/18 16:00 Urine Source CATH 06/23/18 17:00 Urine Color YELLOW 06/23/18 17:00 Urine Clarity HAZY (CLEAR) 06/23/18 17:00 Urine pH 6.0 (4.6 - 8.0) 06/23/18 17:00 Ur Specific [place] 1.025 (1.005-1.030) 06/23/18 17:00 Urine Protein TRACE mg/dL (NEGATIVE) 06/23/18 17:00 Urine Glucose (UA) NEGATIVE mg/dL (NEGATIVE) 06/23/18 17:00 Urine Ketones TRACE mg/dL (NEGATIVE) 06/23/18 17:00 Urine Blood TRACE (NEGATIVE) 06/23/18 17:00 Urine Nitrate POSITIVE (NEGATIVE) H 06/23/18 17:00 Urine Bilirubin NEGATIVE (NEGATIVE) 06/23/18 17:00 Urine Urobilinogen 0.2 E.U./dL (0.2 - 1.0) 06/23/18 17:00 Ur Leukocyte Esterase LARGE (NEGATIVE) H 06/23/18 17:00 Urine RBC 2-5 /hpf (0-5) 06/23/18 17:00 Urine WBC 10-25 /hpf (0-5) H 06/23/18 17:00 Ur Epithelial Cells MODERATE /lpf (FEW) 06/23/18 17:00 Urine Bacteria MANY /hpf (NONE SEEN) H 06/23/18 17:00 Gentamicin 0.7 ug/mL (0.5-10.0) 06/26/18 11:55 Gentamicin Peak 6.1 ug/ml (4.0-8.0) 06/27/18 17:32 Gentamicin Trough 1.3 ug/ml (0.2-2.0) 06/27/18 15:41 Salicylates < 25.0 mg/L (30.0-100.0) L 06/23/18 16:00 Urine Opiates Screen NEGATIVE (NEGATIVE) 06/23/18 17:00 Urine Methadone Screen NEGATIVE (NEGATIVE) 06/23/18 17:00 Acetaminophen < 10.0 ug/mL (10.0-30.0) L 06/23/18 16:00 Ur Barbiturates Screen NEGATIVE (NEGATIVE) 06/23/18 17:00 Ur Tricyclics Screen NEGATIVE (NEGATIVE) 06/23/18 17:00 Ur Phencyclidine Scrn NEGATIVE (NEGATIVE) 06/23/18 17:00 Amphetamines Screen NEGATIVE (NEGATIVE) 06/23/18 17:00 U Methamphetamines Scrn NEGATIVE (NEGATIVE) 06/23/18 17:00 U Benzodiazepines Scrn NEGATIVE (NEGATIVE) 06/23/18 17:00 U Cocaine Metab Screen NEGATIVE (NEGATIVE) 06/23/18 17:00 U Cannabinoids Screen NEGATIVE (NEGATIVE) 06/23/18 17:00 - Physical Exam Vitals and I&O: Vital Signs Temp 96.8 F 06/29/18 08:00 Pulse 78 06/29/18 08:00 Resp 16 06/29/18 08:00 BP 130/66 06/29/18 08:00 Pulse Ox 95 06/29/18 08:00 Intake & Output 06/28/18 06/29/18 06/29/18 18:59 06:59 18:59 Intake Total 1102.5 3487.5 Output Total 825 Balance 1102.5 2662.5 Weight (lbs) 47.627 kg Intake: Intake, IV Amount 1102.5 2737.5 Gentamicin 100 mg In 102.5 Sodium Chloride 0.9% 100 ml @ 100 mls/hr IV Q24H [facility] Rx#:[id number] Sodium Chloride 0.45% 1, 1000 2737.5 000 ml @ 125 mls/hr IV . Q8H [facility] Rx#:[id number] Oral 750 Output: Urine 825 Other: # Bowel Movements 2 Stool Characteristics Soft Soft Soft Weight Source Bedscale Active Medications: Current Medications Acetaminophen (Tylenol) 650 mg PO Q6H PRN PRN Reason: Pain (Moderate) Stop: 08/23/18 13:58 Last Admin: 06/27/18 02:05 Dose: 650 mg Carbidopa/Levodopa (Sinemet 25 Mg-250 Mg) 1 tab PO BID [facility] Stop: 08/23/18 19:14 Last Admin: 06/29/18 08:50 Dose: 1 tab Escitalopram Oxalate (Lexapro) 10 mg PO DAILY [facility] Stop: 08/23/18 08:59 Last Admin: 06/29/18 08:50 Dose: 10 mg Gentamicin Sulfate 100 mg/ (Sodium Chloride) 102.5 mls @ 100 mls/hr IV Q24H [facility] Stop: 08/25/18 15:59 Last Infusion: 06/28/18 18:57 Dose: Infused Sodium Chloride (Nacl 0.45%) 1,000 mls @ 125 mls/hr IV .Q8H [facility] Stop: 08/26/18 08:51 Last Admin: 06/29/18 06:45 Dose: 125 mls/hr Lactobacillus Rhamnosus (Culturelle 15b) 1 each PO DAILY [facility] Stop: 08/24/18 13:59 Last Admin: 06/29/18 08:50 Dose: 1 each Lorazepam (Ativan) 1 mg IVP Q6HR PRN; Protocol PRN Reason: Anxiety Stop: 08/22/18 22:08 Last Admin: 06/28/18 13:48 Dose: 1 mg Miscellaneous (Vte Chemical Prophylaxis Screen/ Admission) 1 ea PRN PRN PRN Reason: PROTOCOL Stop: 08/23/18 11:53 Miscellaneous (Probiotic Screen) 1 ea PRN PRN PRN Reason: PROTOCOL Stop: 08/24/18 11:17 Miscellaneous (Gentamicin Iv Per Pharmacy) 1 ea PRN PRN PRN Reason: PROTOCOL Stop: 08/24/18 11:39 Rivaroxaban (Xarelto) 20 mg PO DAILY [facility] Stop: 08/23/18 08:59 Last Admin: 06/29/18 08:50 Dose: 20 mg General: weak HEENT: NC/AT Neck: Supple Lungs: CTAB Cardiovascular: Normal S1, Normal S2 Abdomen: soft, non-tender Extremities: clear Neurological: no change - Procedures Procedures: Procedures Procedure Code Date GROUP PSYCHOTHERAPY 91874 11/24/15 GROUP PSYCHOTHERAPY GZHZZZZ 11/24/15 GROUP PSYCHOTHERAPY 51786 07/25/15 GROUP PSYCHOTHERAPY GZHZZZZ 07/25/15 Internal Medicine Assmt/Plan - Assessment Assessment: calcium channel OD UTI SI depression delusional htn - Plan Plan: as per order sheet Nutritional Asmnt/Malnutr-PDOC - Dietary Evaluation Malnutrition Findings (Please click <Entered> for more info): Nutritional Asmnt/Malnutrition Start: 06/26/18 14: 49 Text: Status: Complete Freq: Protocol: Document 06/26/18 15:25 CRYSTAL (Rec: 06/26/18 15:47 CRYSTAL [email or web address]) Nutritional Asmnt/Malnutrition Patient General Information Nutritional Screening Moderate Risk Diagnosis calcium channel overdose Pertinent Medical Hx/Surgical Hx HTN, parkinson, h/o alcohol abuse, L shoulder surgery, depression Subjective Information Pt seen lying in bed, shaking, verbal but confused and disoriented, has 1:1 sitter at bedside. Per sitter, pt was not eating much in the past two days, PO intake 20-40%. pt appeared thin. Current Diet Order/ Nutrition Support [facility] soft chopped. Pertinent Medications culturelle, lexapro Pertinent Labs 06/26 Cl 109, BUN 27 (trending up), glucose 180 (trending up) 06/25 Mg 1.8 06/24 Mg 1.6 Nutritional Hx/Data Height 1.57 m Height (Calculated Centimeters) 157.5 Current Weight (lbs) 51.71 kg Weight (Calculated Kilograms) 51.7 Weight (Calculated Grams) 93975.5 [place] Body Weight 110 Body Mass Index (BMI) 20.8 Weight Status Approriate GI Symptoms GI Symptoms None Last BM 06/24 Difficult in: None Skin Integrity/Comment: pressure area reddened to medial occipital, laceration to right ear Current %PO Poor (25-49%) Estimated Nutritional Goals BEE in Kcals: Using Current wt Calories/Kcals/Kg 25-30 Kcals Calculated 5938-8568 Protein: Using Current wt Protein g/k Protein Calculated 52 Fluid: ml 1300-1560ml (1ml/kcal) Nutritional Problem 2. Problem Problem altered nutrition related labs Etiology electrolytes/fluid imbalance, hyperglycemia Signs/Symptoms: Cl 109, BUN 27, Glucose 180, Mg 1.8 1. Problem Problem inadequate food intake Etiology possible confusion Signs/Symptoms: PO intake 20-40% Malnutrition Alert Is there a minimum of two criteria No selected? Query Text:Check all the applicable criteria. A minimum of two criteria are recommended for diagnosis of either severe or non-severe malnutrition. Malnutrition Related to Morbid Obesity Malnutrition related to morbid obesity No Intervention/Recommendation Comments 1. Continue with [facility] soft chopped diet as ordered. Assist pt with all meals ane encourage eating and drinking. Add Ensure TID with meals to increase kcal/protein intake. MD to consider appetite stimulant if PO itnake continue <50%. 2. Monitor PO intake, wt, labs and skin integrity 3. F/U as high risk in 2-3 days, 06/28-06/30 Expected Outcomes/Goals Expected Outcomes/Goals 1. PO intake to improve and meet at least 75% of nutritional needs. 2. Wt stability, skin to remain intact, labs to approach WNL.
[2018-06-30] MEDS: Sodium Chloride 0.45% 1,000 ML IV SCH ×2 (01:29→09:20)
--- NOTE | 2018-06-30 04:11 | Progress Notes ---
DATE: 06/29/2018 SUBJECTIVE: Staff was spoken to. The patient is interviewed. Mood is noted to be irritable. Affect is constricted. Insight and judgment at this time are noted to be still impaired. Impulse control seems to be poor. Coping skills are noted to be very poor. The patient has been tremulous and has been crying at this time. No side effects to the medications are noted. The patient is only on the Lexapro. ASSESSMENT: The patient is still depressed. PLAN: To continue the patient with the supportive therapy and followup. JOB# [id number]
[2018-06-30] MEDS: Lactobacillus Rhamnosus GG 15 Billion CFU CAP.SPRINK PO SCH (08:26)
--- NOTE | 2018-06-30 10:27 | Internal Medicine Prog Note ---
Internal Medicine Subjective - Subjective Patient seen and examined:: chart reviewed Patient is:: awake, confused (depressed) Per staff patient has:: no adverse event Internal Medicine Objective - Results Result Diagrams: 06/27/18 04:55 06/29/18 05:54 Recent Labs: Laboratory Last Values WBC 8.7 Th/cmm (4.8-10.8) 06/27/18 04:55 RBC 4.83 Mil/cmm (3.80-5.20) 06/27/18 04:55 Hgb 14.0 gm/dL (12-16) 06/27/18 04:55 Hct 42.4 % (41.0-60) 06/27/18 04:55 MCV 87.8 fl (81-100) 06/27/18 04:55 MCH 29.0 pg (27.0-31.0) 06/27/18 04:55 MCHC Differential 33.0 pg (28.0-36.0) 06/27/18 04:55 RDW 12.9 % (11.5-20.0) 06/27/18 04:55 Plt Count 212 Th/cmm (150-400) 06/27/18 04:55 MPV 7.8 fl 06/27/18 04:55 Add Manual Diff YES 06/24/18 04:00 Neutrophils % 76.4 % (40.0-80.0) 06/27/18 04:55 Band Neutrophils % 0 % (0-10) 06/24/18 04:00 Lymphocytes % 15.8 % (20.0-50.0) L 06/27/18 04:55 Monocytes % 7.5 % (2.0-10.0) 06/27/18 04:55 Eosinophils % 0.2 % (0.0-5.0) 06/27/18 04:55 Basophils % 0.1 % (0.0-2.0) 06/27/18 04:55 Neutrophils (Manual) 53 % (40-80) 06/24/18 04:00 Lymphocytes 41 % (20-50) 06/24/18 04:00 Monocytes 5 % (2-10) 06/24/18 04:00 Eosinophils 1 % (0-5) 06/24/18 04:00 PT 12.7 SECONDS (9.5-11.5) H 06/23/18 18:55 INR 1.23 (0.5-1.4) 06/23/18 18:55 PTT (Actin FS) 26.7 SECONDS (26.0-38.0) 06/23/18 18:55 Sodium 143 mEq/L (136-145) 06/29/18 05:54 Potassium 3.7 mEq/L (3.5-5.1) 06/29/18 05:54 Chloride 111 mEq/L (98-107) H 06/29/18 05:54 Carbon Dioxide 23.5 mEq/L (21.0-31.0) 06/29/18 05:54 Anion Gap 12.2 (7.0-16.0) 06/29/18 05:54 BUN 39 mg/dL (7-25) H 06/29/18 05:54 Creatinine 0.7 mg/dL (0.6-1.2) 06/29/18 05:54 Est GFR ( Amer) TNP 06/29/18 05:54 Est GFR (Non-Af Amer) TNP 06/29/18 05:54 BUN/Creatinine Ratio 55.7 06/29/18 05:54 Glucose 101 mg/dL (70-105) 06/29/18 05:54 POC Glucose 139 MG/DL (70 - 105) H 06/28/18 13:41 Calcium 9.0 mg/dL (8.6-10.3) 06/29/18 05:54 Phosphorus 3.5 mg/dL (2.5-5.0) 06/23/18 16:00 Magnesium 1.8 mg/dL (1.9-2.7) L 06/25/18 05:15 Total Bilirubin 0.7 mg/dL (0.3-1.0) 06/23/18 16:00 AST 16 U/L (13-39) 06/23/18 16:00 ALT 7 U/L (7-52) 06/23/18 16:00 Alkaline Phosphatase 87 U/L (34-104) 06/23/18 16:00 Creatine Kinase 92 U/L (30-223) 06/24/18 04:00 Troponin I < 0.01 ng/mL (0.01-0.05) L 06/24/18 04:00 Total Protein 6.5 gm/dL (6.0-8.3) 06/23/18 16:00 Albumin 3.9 gm/dL (3.7-5.3) 06/23/18 16:00 Globulin 2.6 gm/dL 06/23/18 16:00 Albumin/Globulin Ratio 1.5 (1.0-1.8) 06/23/18 16:00 Urine Source CATH 06/23/18 17:00 Urine Color YELLOW 06/23/18 17:00 Urine Clarity HAZY (CLEAR) 06/23/18 17:00 Urine pH 6.0 (4.6 - 8.0) 06/23/18 17:00 Ur Specific [place] 1.025 (1.005-1.030) 06/23/18 17:00 Urine Protein TRACE mg/dL (NEGATIVE) 06/23/18 17:00 Urine Glucose (UA) NEGATIVE mg/dL (NEGATIVE) 06/23/18 17:00 Urine Ketones TRACE mg/dL (NEGATIVE) 06/23/18 17:00 Urine Blood TRACE (NEGATIVE) 06/23/18 17:00 Urine Nitrate POSITIVE (NEGATIVE) H 06/23/18 17:00 Urine Bilirubin NEGATIVE (NEGATIVE) 06/23/18 17:00 Urine Urobilinogen 0.2 E.U./dL (0.2 - 1.0) 06/23/18 17:00 Ur Leukocyte Esterase LARGE (NEGATIVE) H 06/23/18 17:00 Urine RBC 2-5 /hpf (0-5) 06/23/18 17:00 Urine WBC 10-25 /hpf (0-5) H 06/23/18 17:00 Ur Epithelial Cells MODERATE /lpf (FEW) 06/23/18 17:00 Urine Bacteria MANY /hpf (NONE SEEN) H 06/23/18 17:00 Gentamicin 0.7 ug/mL (0.5-10.0) 06/26/18 11:55 Gentamicin Peak 6.1 ug/ml (4.0-8.0) 06/27/18 17:32 Gentamicin Trough 1.3 ug/ml (0.2-2.0) 06/27/18 15:41 Salicylates < 25.0 mg/L (30.0-100.0) L 06/23/18 16:00 Urine Opiates Screen NEGATIVE (NEGATIVE) 06/23/18 17:00 Urine Methadone Screen NEGATIVE (NEGATIVE) 06/23/18 17:00 Acetaminophen < 10.0 ug/mL (10.0-30.0) L 06/23/18 16:00 Ur Barbiturates Screen NEGATIVE (NEGATIVE) 06/23/18 17:00 Ur Tricyclics Screen NEGATIVE (NEGATIVE) 06/23/18 17:00 Ur Phencyclidine Scrn NEGATIVE (NEGATIVE) 06/23/18 17:00 Amphetamines Screen NEGATIVE (NEGATIVE) 06/23/18 17:00 U Methamphetamines Scrn NEGATIVE (NEGATIVE) 06/23/18 17:00 U Benzodiazepines Scrn NEGATIVE (NEGATIVE) 06/23/18 17:00 U Cocaine Metab Screen NEGATIVE (NEGATIVE) 06/23/18 17:00 U Cannabinoids Screen NEGATIVE (NEGATIVE) 06/23/18 17:00 - Physical Exam Vitals and I&O: Vital Signs Temp 97.9 F 06/30/18 08:00 Pulse 81 06/30/18 08:00 Resp 18 06/30/18 08:00 BP 137/68 06/30/18 08:00 Pulse Ox 97 06/30/18 08:00 Intake & Output 06/29/18 06/30/18 06/30/18 18:59 06:59 18:59 Intake Total 1702.5 1000 981.25 Output Total 450 300 Balance 1252.5 700 981.25 Weight (lbs) 47.627 kg 47.627 kg Intake: Intake, IV Amount 1102.5 1000 981.25 Gentamicin 100 mg In 102.5 Sodium Chloride 0.9% 100 ml @ 100 mls/hr IV Q24H [facility] Rx#:[id number] Sodium Chloride 0.45% 1, 1000 1000 981.25 000 ml @ 125 mls/hr IV . Q8H [facility] Rx#:[id number] Oral 600 Output: Urine 450 300 Other: # Bowel Movements 1 1 Stool Characteristics Soft Soft Black Black Weight Source Bedscale Bedscale Active Medications: Current Medications Acetaminophen (Tylenol) 650 mg PO Q6H PRN PRN Reason: Pain (Moderate) Stop: 08/23/18 13:58 Last Admin: 06/29/18 21:25 Dose: 650 mg Carbidopa/Levodopa (Sinemet 25 Mg-250 Mg) 1 tab PO BID [facility] Stop: 08/23/18 19:14 Last Admin: 06/30/18 08:27 Dose: 1 tab Escitalopram Oxalate (Lexapro) 10 mg PO DAILY [facility] Stop: 08/23/18 08:59 Last Admin: 06/30/18 08:27 Dose: 10 mg Gentamicin Sulfate 100 mg/ (Sodium Chloride) 102.5 mls @ 100 mls/hr IV Q24H [facility] Stop: 08/25/18 15:59 Last Infusion: 06/29/18 18:41 Dose: Infused Sodium Chloride (Nacl 0.45%) 1,000 mls @ 125 mls/hr IV .Q8H [facility] Stop: 08/26/18 08:51 Last Admin: 06/30/18 09:20 Dose: 125 mls/hr Lactobacillus Rhamnosus (Culturelle 15b) 1 each PO DAILY [facility] Stop: 08/24/18 13:59 Last Admin: 06/30/18 08:26 Dose: 1 each Lorazepam (Ativan) 1 mg IVP Q6HR PRN; Protocol PRN Reason: Anxiety Stop: 08/22/18 22:08 Last Admin: 06/28/18 13:48 Dose: 1 mg Miscellaneous (Vte Chemical Prophylaxis Screen/ Admission) 1 [facility] PRN PRN PRN Reason: PROTOCOL Stop: 08/23/18 11:53 Miscellaneous (Probiotic Screen) 1 [facility] PRN PRN PRN Reason: PROTOCOL Stop: 08/24/18 11:17 Miscellaneous (Gentamicin Iv Per Pharmacy) 1 [facility] PRN PRN PRN Reason: PROTOCOL Stop: 08/24/18 11:39 General: weak HEENT: NC/AT Neck: Supple Lungs: CTAB Cardiovascular: Normal S1, Normal S2 Abdomen: soft, non-tender Extremities: clear Neurological: no change - Procedures Procedures: Procedures Procedure Code Date GROUP PSYCHOTHERAPY 14648 11/24/15 GROUP PSYCHOTHERAPY GZHZZZZ 11/24/15 GROUP PSYCHOTHERAPY 72789 07/25/15 GROUP PSYCHOTHERAPY GZHZZZZ 07/25/15 Internal Medicine Assmt/Plan - Assessment Assessment: calcium channel OD UTI SI depression delusional htn - Plan Plan: as per order sheet Nutritional Asmnt/Malnutr-PDOC - Dietary Evaluation Malnutrition Findings (Please click <Entered> for more info): Nutritional Asmnt/Malnutrition Start: 06/26/18 14: 49 Text: Status: Complete Freq: Protocol: Document 06/26/18 15:25 LCHENG (Rec: 06/26/18 15:47 LCHENG [email or web address]) Nutritional Asmnt/Malnutrition Patient General Information Nutritional Screening Moderate Risk Diagnosis calcium channel overdose Pertinent Medical Hx/Surgical Hx HTN, parkinson, h/o alcohol abuse, L shoulder surgery, depression Subjective Information Pt seen lying in bed, shaking, verbal but confused and disoriented, has 1:1 sitter at bedside. Per sitter, pt was not eating much in the past two days, PO intake 20-40%. pt appeared thin. Current Diet Order/ Nutrition Support [facility] soft chopped. Pertinent Medications culturelle, lexapro Pertinent Labs 06/26 Cl 109, BUN 27 (trending up), glucose 180 (trending up) 06/25 Mg 1.8 06/24 Mg 1.6 Nutritional Hx/Data Height 1.57 m Height (Calculated Centimeters) 157.5 Current Weight (lbs) 51.71 kg Weight (Calculated Kilograms) 51.7 Weight (Calculated Grams) 72876.5 [place] Body Weight 110 Body Mass Index (BMI) 20.8 Weight Status Approriate GI Symptoms GI Symptoms None Last BM 06/24 Difficult in: None Skin Integrity/Comment: pressure area reddened to medial occipital, laceration to right ear Current %PO Poor (25-49%) Estimated Nutritional Goals BEE in Kcals: Using Current wt Calories/Kcals/Kg 25-30 Kcals Calculated 1731-7490 Protein: Using Current wt Protein g/k Protein Calculated 52 Fluid: ml 1300-1560ml (1ml/kcal) Nutritional Problem 2. Problem Problem altered nutrition related labs Etiology electrolytes/fluid imbalance, hyperglycemia Signs/Symptoms: Cl 109, BUN 27, Glucose 180, Mg 1.8 1. Problem Problem inadequate food intake Etiology possible confusion Signs/Symptoms: PO intake 20-40% Malnutrition Alert Is there a minimum of two criteria No selected? Query Text:Check all the applicable criteria. A minimum of two criteria are recommended for diagnosis of either severe or non-severe malnutrition. Malnutrition Related to Morbid Obesity Malnutrition related to morbid obesity No Intervention/Recommendation Comments 1. Continue with [facility] soft chopped diet as ordered. Assist pt with all meals ane encourage eating and drinking. Add Ensure TID with meals to increase kcal/protein intake. MD to consider appetite stimulant if PO itnake continue <50%. 2. Monitor PO intake, wt, labs and skin integrity 3. F/U as high risk in 2-3 days, 06/28-06/30 Expected Outcomes/Goals Expected Outcomes/Goals 1. PO intake to improve and meet at least 75% of nutritional needs. 2. Wt stability, skin to remain intact, labs to approach WNL.
[2018-06-30] MEDS ORDERED: Sodium Chloride 0.45% 1,000 ML IV SCH (16:30)
[2018-06-30 17:11] LABS: % BASOPHILS 0.4 % (0.0-2.0); % EOSINOPHILS 1.8 % (0.0-5.0); % LYMPHOCYTES 24.1 % (20.0-50.0); % MONOCYTES 10.1 % (2.0-10.0); % NEUTROPHILS 63.6 % (40.0-80.0); EOSINOPHILE ABSOLUTE 0.2 Th/cmm (0.1-0.4); HEMATOCRIT 37.4 % (41.0-60); HEMOGLOBIN 12.8 gm/dL (12-16); MEAN CELL VOLUME 87.4 fl (81-100); MEAN CORPUSCULAR HEMOGLOBIN 29.9 pg (27.0-31.0); MEAN CORPUSCULAR HGB CONC 34.2 pg (28.0-36.0); MEAN PLATELET VOLUME 7.9 fl; MONOCYTE ABSOLUTE 0.8 Th/cmm (0.3-1.0); NEUTROPHILE ABSOLUTE 5.4 Th/cmm (1.8-8.0); PLATELET COUNT 170 Th/cmm (150-400); RED BLOOD COUNT 4.28 Mil/cmm (3.80-5.20); RED CELL DISTRIBUTION WIDTH 12.4 % (11.5-20.0); WHITE BLOOD COUNT 8.4 Th/cmm (4.8-10.8)
[2018-06-30 17:50] LABS: ANION GAP 13.4 (7.0-16.0); BUN - UREA NITROGEN 28 mg/dL (7-25); CALCIUM SERUM 8.7 mg/dL (8.6-10.3); CHLORIDE 107 mEq/L (98-107); CREATININE - SERUM 0.7 mg/dL (0.6-1.2); GLUCOSE 115 mg/dL (70-105); POTASSIUM SERUM 3.4 mEq/L (3.5-5.1); SODIUM SERUM 141 mEq/L (136-145)
[2018-06-30] MEDS ORDERED: Potassium Chloride 20 mEq ER Tab PO ONE (21:00)
--- NOTE | 2018-06-30 23:23 | Infectious Disease Prog Note ---
Infectious Disease Subjective - Review of Systems Service Date: 06/30/18 Subjective: No new change, no fever/ Infectious Disease Objective - Results Result Diagrams: 06/30/18 16:47 06/30/18 16:47 Recent Labs: Laboratory Last Values WBC 8.4 Th/cmm (4.8-10.8) 06/30/18 16:47 RBC 4.28 Mil/cmm (3.80-5.20) 06/30/18 16:47 Hgb 12.8 gm/dL (12-16) 06/30/18 16:47 Hct 37.4 % (41.0-60) L 06/30/18 16:47 MCV 87.4 fl (81-100) 06/30/18 16:47 MCH 29.9 pg (27.0-31.0) 06/30/18 16:47 MCHC Differential 34.2 pg (28.0-36.0) 06/30/18 16:47 RDW 12.4 % (11.5-20.0) 06/30/18 16:47 Plt Count 170 Th/cmm (150-400) 06/30/18 16:47 MPV 7.9 fl 06/30/18 16:47 Add Manual Diff YES 06/24/18 04:00 Neutrophils % 63.6 % (40.0-80.0) 06/30/18 16:47 Band Neutrophils % 0 % (0-10) 06/24/18 04:00 Lymphocytes % 24.1 % (20.0-50.0) 06/30/18 16:47 Monocytes % 10.1 % (2.0-10.0) H 06/30/18 16:47 Eosinophils % 1.8 % (0.0-5.0) 06/30/18 16:47 Basophils % 0.4 % (0.0-2.0) 06/30/18 16:47 Neutrophils (Manual) 53 % (40-80) 06/24/18 04:00 Lymphocytes 41 % (20-50) 06/24/18 04:00 Monocytes 5 % (2-10) 06/24/18 04:00 Eosinophils 1 % (0-5) 06/24/18 04:00 PT 12.7 SECONDS (9.5-11.5) H 06/23/18 18:55 INR 1.23 (0.5-1.4) 06/23/18 18:55 PTT (Actin FS) 26.7 SECONDS (26.0-38.0) 06/23/18 18:55 Sodium 141 mEq/L (136-145) 06/30/18 16:47 Potassium 3.4 mEq/L (3.5-5.1) L 06/30/18 16:47 Chloride 107 mEq/L (98-107) 06/30/18 16:47 Carbon Dioxide 24.0 mEq/L (21.0-31.0) 06/30/18 16:47 Anion Gap 13.4 (7.0-16.0) 06/30/18 16:47 BUN 28 mg/dL (7-25) H 06/30/18 16:47 Creatinine 0.7 mg/dL (0.6-1.2) 06/30/18 16:47 Est GFR ( Amer) TNP 06/30/18 16:47 Est GFR (Non-Af Amer) TNP 06/30/18 16:47 BUN/Creatinine Ratio 40.0 06/30/18 16:47 Glucose 115 mg/dL (70-105) H 06/30/18 16:47 POC Glucose 139 MG/DL (70 - 105) H 06/28/18 13:41 Calcium 8.7 mg/dL (8.6-10.3) 06/30/18 16:47 Phosphorus 3.5 mg/dL (2.5-5.0) 06/23/18 16:00 Magnesium 1.8 mg/dL (1.9-2.7) L 06/25/18 05:15 Total Bilirubin 0.7 mg/dL (0.3-1.0) 06/23/18 16:00 AST 16 U/L (13-39) 06/23/18 16:00 ALT 7 U/L (7-52) 06/23/18 16:00 Alkaline Phosphatase 87 U/L (34-104) 06/23/18 16:00 Creatine Kinase 92 U/L (30-223) 06/24/18 04:00 Troponin I < 0.01 ng/mL (0.01-0.05) L 06/24/18 04:00 B-Natriuretic Peptide 145.0 pg/mL (5.0-100.0) H 06/30/18 16:47 Total Protein 6.5 gm/dL (6.0-8.3) 06/23/18 16:00 Albumin 3.9 gm/dL (3.7-5.3) 06/23/18 16:00 Globulin 2.6 gm/dL 06/23/18 16:00 Albumin/Globulin Ratio 1.5 (1.0-1.8) 06/23/18 16:00 Urine Source CATH 06/23/18 17:00 Urine Color YELLOW 06/23/18 17:00 Urine Clarity HAZY (CLEAR) 06/23/18 17:00 Urine pH 6.0 (4.6 - 8.0) 06/23/18 17:00 Ur Specific [place] 1.025 (1.005-1.030) 06/23/18 17:00 Urine Protein TRACE mg/dL (NEGATIVE) 06/23/18 17:00 Urine Glucose (UA) NEGATIVE mg/dL (NEGATIVE) 06/23/18 17:00 Urine Ketones TRACE mg/dL (NEGATIVE) 06/23/18 17:00 Urine Blood TRACE (NEGATIVE) 06/23/18 17:00 Urine Nitrate POSITIVE (NEGATIVE) H 06/23/18 17:00 Urine Bilirubin NEGATIVE (NEGATIVE) 06/23/18 17:00 Urine Urobilinogen 0.2 E.U./dL (0.2 - 1.0) 06/23/18 17:00 Ur Leukocyte Esterase LARGE (NEGATIVE) H 06/23/18 17:00 Urine RBC 2-5 /hpf (0-5) 06/23/18 17:00 Urine WBC 10-25 /hpf (0-5) H 06/23/18 17:00 Ur Epithelial Cells MODERATE /lpf (FEW) 06/23/18 17:00 Urine Bacteria MANY /hpf (NONE SEEN) H 06/23/18 17:00 Gentamicin 0.7 ug/mL (0.5-10.0) 06/26/18 11:55 Gentamicin Peak 6.1 ug/ml (4.0-8.0) 06/27/18 17:32 Gentamicin Trough 1.3 ug/ml (0.2-2.0) 06/27/18 15:41 Salicylates < 25.0 mg/L (30.0-100.0) L 06/23/18 16:00 Urine Opiates Screen NEGATIVE (NEGATIVE) 06/23/18 17:00 Urine Methadone Screen NEGATIVE (NEGATIVE) 06/23/18 17:00 Acetaminophen < 10.0 ug/mL (10.0-30.0) L 06/23/18 16:00 Ur Barbiturates Screen NEGATIVE (NEGATIVE) 06/23/18 17:00 Ur Tricyclics Screen NEGATIVE (NEGATIVE) 06/23/18 17:00 Ur Phencyclidine Scrn NEGATIVE (NEGATIVE) 06/23/18 17:00 Amphetamines Screen NEGATIVE (NEGATIVE) 06/23/18 17:00 U Methamphetamines Scrn NEGATIVE (NEGATIVE) 06/23/18 17:00 U Benzodiazepines Scrn NEGATIVE (NEGATIVE) 06/23/18 17:00 U Cocaine Metab Screen NEGATIVE (NEGATIVE) 06/23/18 17:00 U Cannabinoids Screen NEGATIVE (NEGATIVE) 06/23/18 17:00 - Physical Exam Vitals and I&O: Vital Signs Temp 97.3 F 06/30/18 20:00 Pulse 74 06/30/18 20:00 Resp 18 06/30/18 20:00 BP 130/75 06/30/18 20:00 Pulse Ox 94 06/30/18 20:00 Intake & Output 06/30/18 06/30/18 07/01/18 06:59 18:59 06:59 Intake Total 1000 1681.25 Output Total 300 400 Balance 700 1281.25 Weight (lbs) 47.627 kg 47.627 kg Intake: Intake, IV Amount 1000 981.25 Sodium Chloride 0.45% 1, 1000 981.25 000 ml @ 125 mls/hr IV . Q8H [facility] Rx#:[id number] Oral 700 Output: Urine 300 400 Other: # Bowel Movements 1 2 Stool Characteristics Soft Soft Black Black Weight Source Bedscale Bedscale Active Medications: Current Medications Acetaminophen (Tylenol) 650 mg PO Q6H PRN PRN Reason: Pain (Moderate) Stop: 08/23/18 13:58 Last Admin: 06/29/18 21:25 Dose: 650 mg Carbidopa/Levodopa (Sinemet 25 Mg-250 Mg) 1 tab PO BID [facility] Stop: 08/23/18 19:14 Last Admin: 06/30/18 16:07 Dose: 1 tab Gentamicin Sulfate 100 mg/ (Sodium Chloride) 102.5 mls @ 100 mls/hr IV Q24H [facility] Stop: 08/25/18 15:59 Last Admin: 06/30/18 16:07 Dose: 100 mls/hr Sodium Chloride (Nacl 0.45%) 1,000 mls @ 50 mls/hr IV .Q20H [facility] Stop: 08/29/18 16:29 Last Admin: 06/30/18 16:30 Dose: 50 mls/hr Lactobacillus Rhamnosus (Culturelle 15b) 1 each PO DAILY [facility] Stop: 08/24/18 13:59 Last Admin: 06/30/18 08:26 Dose: 1 each Lorazepam (Ativan) 1 mg IVP Q6HR PRN; Protocol PRN Reason: Anxiety Stop: 08/22/18 22:08 Last Admin: 06/30/18 20:42 Dose: 1 mg Miscellaneous (Vte Chemical Prophylaxis Screen/ Admission) 1 [facility] PRN PRN PRN Reason: PROTOCOL Stop: 08/23/18 11:53 Miscellaneous (Probiotic Screen) 1 [facility] PRN PRN PRN Reason: PROTOCOL Stop: 08/24/18 11:17 Miscellaneous (Gentamicin Iv Per Pharmacy) 1 [facility] PRN PRN PRN Reason: PROTOCOL Stop: 08/24/18 11:39 General: no acute distress, well developed, well nourished HEENT: atraumatic, normocephalic, PERRLA, EOMI Neck: supple, no thyromegaly Cardiovascular: S1S2, regular Lungs: clear to auscultation bilaterally, clear to percussion Abdomen: soft, no tender, no distended Extremities: no cyanosis, no clubbing, no edema Neurological: awake, alert, oriented - Procedures Procedures: Procedures Procedure Code Date GROUP PSYCHOTHERAPY 36722 11/24/15 GROUP PSYCHOTHERAPY GZHZZZZ 11/24/15 GROUP PSYCHOTHERAPY 54706 07/25/15 GROUP PSYCHOTHERAPY GZHZZZZ 07/25/15 Infectious Disease Assmt/Plan - Problem List Patient Problems: All Active Problems MEDICATION EXCESS AND MISAPPROPRIATION (Acute) - Assessment Assessment: 1. UTI, 2. Hypotesion improved. 3. Depression. 4. H/o HTN. 5. Parkinsons disease. 6. Dementia. - Plan Plan: Continue gentamicin D6/7. change gentamicin to macrobid po, when get transferred to the [facility]. Check UA. Nutritional Asmnt/Malnutr-PDOC - Dietary Evaluation Malnutrition Findings (Please click <Entered> for more info): Nutritional Asmnt/Malnutrition Start: 06/26/18 14: 49 Text: Status: Complete Freq: Protocol: Document 06/26/18 15:25 LCHENG (Rec: 06/26/18 15:47 LCHENG [email or web address]) Nutritional Asmnt/Malnutrition Patient General Information Nutritional Screening Moderate Risk Diagnosis calcium channel overdose Pertinent Medical Hx/Surgical Hx HTN, parkinson, h/o alcohol abuse, L shoulder surgery, depression Subjective Information Pt seen lying in bed, shaking, verbal but confused and disoriented, has 1:1 sitter at bedside. Per sitter, pt was not eating much in the past two days, PO intake 20-40%. pt appeared thin. Current Diet Order/ Nutrition Support [facility] soft chopped. Pertinent Medications culturelle, lexapro Pertinent Labs 06/26 Cl 109, BUN 27 (trending up), glucose 180 (trending up) 06/25 Mg 1.8 06/24 Mg 1.6 Nutritional Hx/Data Height 1.57 m Height (Calculated Centimeters) 157.5 Current Weight (lbs) 51.71 kg Weight (Calculated Kilograms) 51.7 Weight (Calculated Grams) 06220.5 [place] Body Weight 110 Body Mass Index (BMI) 20.8 Weight Status Approriate GI Symptoms GI Symptoms None Last BM 06/24 Difficult in: None Skin Integrity/Comment: pressure area reddened to medial occipital, laceration to right ear Current %PO Poor (25-49%) Estimated Nutritional Goals BEE in Kcals: Using Current wt Calories/Kcals/Kg 25-30 Kcals Calculated 8222-8625 Protein: Using Current wt Protein g/k Protein Calculated 52 Fluid: ml 1300-1560ml (1ml/kcal) Nutritional Problem 2. Problem Problem altered nutrition related labs Etiology electrolytes/fluid imbalance, hyperglycemia Signs/Symptoms: Cl 109, BUN 27, Glucose 180, Mg 1.8 1. Problem Problem inadequate food intake Etiology possible confusion Signs/Symptoms: PO intake 20-40% Malnutrition Alert Is there a minimum of two criteria No selected? Query Text:Check all the applicable criteria. A minimum of two criteria are recommended for diagnosis of either severe or non-severe malnutrition. Malnutrition Related to Morbid Obesity Malnutrition related to morbid obesity No Intervention/Recommendation Comments 1. Continue with [facility] soft chopped diet as ordered. Assist pt with all meals ane encourage eating and drinking. Add Ensure TID with meals to increase kcal/protein intake. MD to consider appetite stimulant if PO itnake continue <50%. 2. Monitor PO intake, wt, labs and skin integrity 3. F/U as high risk in 2-3 days, 06/28-06/30 Expected Outcomes/Goals Expected Outcomes/Goals 1. PO intake to improve and meet at least 75% of nutritional needs. 2. Wt stability, skin to remain intact, labs to approach WNL.
--- NOTE | 2018-07-01 02:31 | Progress Notes ---
DATE: 06/30/2018 PSYCHIATRIC PROGRESS NOTE SUBJECTIVE: Staff was spoken to. The patient is interviewed. Mood is noted to be dysphoric. The patient is going on a tangent. She is not able to provide much of information. The patient is still responding to internal stimuli. The patient is acutely confused. ASSESSMENT AND PLAN: The patient is only on Lexapro. Plan to use Haldol on a p.r.n. basis for acute agitation and follow the patient up. JOB# [id number]
[2018-07-01 03:58] LABS: URINE SOURCE RANDOM
[2018-07-01 04:28] LABS: URINE BILIRUBIN NEGATIVE (NEGATIVE); URINE BLOOD LARGE (NEGATIVE); URINE GLUCOSE (UA) NEGATIVE (NEGATIVE); URINE KETONE TRACE mg/dL (NEGATIVE); URINE LEUKOCYTE ESTERASE NEGATIVE (NEGATIVE); URINE MICROSCOPIC INDICATED? YES; URINE NITRATE NEGATIVE (NEGATIVE); URINE PROTEIN 30 mg/dL (NEGATIVE); URINE UROBILINOGEN 0.2 E.U./dL (0.2 - 1.0)
[2018-07-01 04:32] LABS: URINE CLARITY HAZY (CLEAR); URINE COLOR ORANGE
[2018-07-01 04:35] LABS: URINE BACTERIA FEW /hpf (NONE SEEN); URINE EPITHELIAL CELLS FEW /lpf (FEW); URINE RBC 25-50 /hpf (0-5); URINE WBC 0-2 /hpf (0-5)
[2018-07-01 04:43] LABS: % BASOPHILS 0.2 % (0.0-2.0); % LYMPHOCYTES 25.3 % (20.0-50.0); % MONOCYTES 9.6 % (2.0-10.0); % NEUTROPHILS 61.9 % (40.0-80.0); EOSINOPHILE ABSOLUTE 0.2 Th/cmm (0.1-0.4); HEMOGLOBIN 12.4 gm/dL (12-16); LYMPHOCYTE ABSOLUTE 1.8 Th/cmm (1.5-3.0); MEAN CELL VOLUME 87.1 fl (81-100); MEAN CORPUSCULAR HEMOGLOBIN 29.3 pg (27.0-31.0); MEAN CORPUSCULAR HGB CONC 33.7 pg (28.0-36.0); MEAN PLATELET VOLUME 7.8 fl; MONOCYTE ABSOLUTE 0.7 Th/cmm (0.3-1.0); NEUTROPHILE ABSOLUTE 4.6 Th/cmm (1.8-8.0); PLATELET COUNT 180 Th/cmm (150-400); RED BLOOD COUNT 4.24 Mil/cmm (3.80-5.20); RED CELL DISTRIBUTION WIDTH 12.6 % (11.5-20.0); WHITE BLOOD COUNT 7.3 Th/cmm (4.8-10.8)
[2018-07-01 05:20] LABS: ANION GAP 13.6 (7.0-16.0); BUN - UREA NITROGEN 26 mg/dL (7-25); CALCIUM SERUM 8.9 mg/dL (8.6-10.3); CHLORIDE 109 mEq/L (98-107); CREATININE - SERUM 0.6 mg/dL (0.6-1.2); GLUCOSE 96 mg/dL (70-105); POTASSIUM SERUM 3.6 mEq/L (3.5-5.1); SODIUM SERUM 142 mEq/L (136-145)
[2018-07-01] MEDS: Lactobacillus Rhamnosus GG 15 Billion CFU CAP.SPRINK PO SCH (08:37)
--- NOTE | 2018-07-01 12:25 | Internal Medicine Prog Note ---
Internal Medicine Subjective - Subjective Service Date: 07/01/18 Patient is:: awake, confused (depressed) Per staff patient has:: no adverse event Internal Medicine Objective - Results Result Diagrams: 07/01/18 04:10 07/01/18 04:10 Recent Labs: Laboratory Last Values WBC 7.3 Th/cmm (4.8-10.8) 07/01/18 04:10 RBC 4.24 Mil/cmm (3.80-5.20) 07/01/18 04:10 Hgb 12.4 gm/dL (12-16) 07/01/18 04:10 Hct 37.0 % (41.0-60) L 07/01/18 04:10 MCV 87.1 fl (81-100) 07/01/18 04:10 MCH 29.3 pg (27.0-31.0) 07/01/18 04:10 MCHC Differential 33.7 pg (28.0-36.0) 07/01/18 04:10 RDW 12.6 % (11.5-20.0) 07/01/18 04:10 Plt Count 180 Th/cmm (150-400) 07/01/18 04:10 MPV 7.8 fl 07/01/18 04:10 Add Manual Diff YES 06/24/18 04:00 Neutrophils % 61.9 % (40.0-80.0) 07/01/18 04:10 Band Neutrophils % 0 % (0-10) 06/24/18 04:00 Lymphocytes % 25.3 % (20.0-50.0) 07/01/18 04:10 Monocytes % 9.6 % (2.0-10.0) 07/01/18 04:10 Eosinophils % 3.0 % (0.0-5.0) 07/01/18 04:10 Basophils % 0.2 % (0.0-2.0) 07/01/18 04:10 Neutrophils (Manual) 53 % (40-80) 06/24/18 04:00 Lymphocytes 41 % (20-50) 06/24/18 04:00 Monocytes 5 % (2-10) 06/24/18 04:00 Eosinophils 1 % (0-5) 06/24/18 04:00 PT 12.7 SECONDS (9.5-11.5) H 06/23/18 18:55 INR 1.23 (0.5-1.4) 06/23/18 18:55 PTT (Actin FS) 26.7 SECONDS (26.0-38.0) 06/23/18 18:55 Sodium 142 mEq/L (136-145) 07/01/18 04:10 Potassium 3.6 mEq/L (3.5-5.1) 07/01/18 04:10 Chloride 109 mEq/L (98-107) H 07/01/18 04:10 Carbon Dioxide 23.0 mEq/L (21.0-31.0) 07/01/18 04:10 Anion Gap 13.6 (7.0-16.0) 07/01/18 04:10 BUN 26 mg/dL (7-25) H 07/01/18 04:10 Creatinine 0.6 mg/dL (0.6-1.2) 07/01/18 04:10 Est GFR ( Amer) TNP 07/01/18 04:10 Est GFR (Non-Af Amer) TNP 07/01/18 04:10 BUN/Creatinine Ratio 43.3 07/01/18 04:10 Glucose 96 mg/dL (70-105) 07/01/18 04:10 POC Glucose 139 MG/DL (70 - 105) H 06/28/18 13:41 Calcium 8.9 mg/dL (8.6-10.3) 07/01/18 04:10 Phosphorus 3.5 mg/dL (2.5-5.0) 06/23/18 16:00 Magnesium 1.8 mg/dL (1.9-2.7) L 06/25/18 05:15 Total Bilirubin 0.7 mg/dL (0.3-1.0) 06/23/18 16:00 AST 16 U/L (13-39) 06/23/18 16:00 ALT 7 U/L (7-52) 06/23/18 16:00 Alkaline Phosphatase 87 U/L (34-104) 06/23/18 16:00 Creatine Kinase 92 U/L (30-223) 06/24/18 04:00 Troponin I < 0.01 ng/mL (0.01-0.05) L 06/24/18 04:00 B-Natriuretic Peptide 145.0 pg/mL (5.0-100.0) H 06/30/18 16:47 Total Protein 6.5 gm/dL (6.0-8.3) 06/23/18 16:00 Albumin 3.9 gm/dL (3.7-5.3) 06/23/18 16:00 Globulin 2.6 gm/dL 06/23/18 16:00 Albumin/Globulin Ratio 1.5 (1.0-1.8) 06/23/18 16:00 Urine Source RANDOM 07/01/18 00:18 Urine Color ORANGE 07/01/18 00:18 Urine Clarity HAZY (CLEAR) 07/01/18 00:18 Urine pH 6.0 (4.6 - 8.0) 07/01/18 00:18 Ur Specific [place] 1.025 (1.005-1.030) 07/01/18 00:18 Urine Protein 30 mg/dL (NEGATIVE) H 07/01/18 00:18 Urine Glucose (UA) NEGATIVE mg/dL (NEGATIVE) 07/01/18 00:18 Urine Ketones TRACE mg/dL (NEGATIVE) 07/01/18 00:18 Urine Blood LARGE (NEGATIVE) H 07/01/18 00:18 Urine Nitrate NEGATIVE (NEGATIVE) 07/01/18 00:18 Urine Bilirubin NEGATIVE (NEGATIVE) 07/01/18 00:18 Urine Urobilinogen 0.2 E.U./dL (0.2 - 1.0) 07/01/18 00:18 Ur Leukocyte Esterase NEGATIVE (NEGATIVE) 07/01/18 00:18 Urine RBC 25-50 /hpf (0-5) H 07/01/18 00:18 Urine WBC 0-2 /hpf (0-5) 07/01/18 00:18 Ur Epithelial Cells FEW /lpf (FEW) 07/01/18 00:18 Urine Bacteria FEW /hpf (NONE SEEN) 07/01/18 00:18 Gentamicin 0.7 ug/mL (0.5-10.0) 06/26/18 11:55 Gentamicin Peak 6.1 ug/ml (4.0-8.0) 06/27/18 17:32 Gentamicin Trough 1.3 ug/ml (0.2-2.0) 06/27/18 15:41 Salicylates < 25.0 mg/L (30.0-100.0) L 06/23/18 16:00 Urine Opiates Screen NEGATIVE (NEGATIVE) 06/23/18 17:00 Urine Methadone Screen NEGATIVE (NEGATIVE) 06/23/18 17:00 Acetaminophen < 10.0 ug/mL (10.0-30.0) L 06/23/18 16:00 Ur Barbiturates Screen NEGATIVE (NEGATIVE) 06/23/18 17:00 Ur Tricyclics Screen NEGATIVE (NEGATIVE) 06/23/18 17:00 Ur Phencyclidine Scrn NEGATIVE (NEGATIVE) 06/23/18 17:00 Amphetamines Screen NEGATIVE (NEGATIVE) 06/23/18 17:00 U Methamphetamines Scrn NEGATIVE (NEGATIVE) 06/23/18 17:00 U Benzodiazepines Scrn NEGATIVE (NEGATIVE) 06/23/18 17:00 U Cocaine Metab Screen NEGATIVE (NEGATIVE) 06/23/18 17:00 U Cannabinoids Screen NEGATIVE (NEGATIVE) 06/23/18 17:00 - Physical Exam Vitals and I&O: Vital Signs Temp 98 F 07/01/18 12:00 Pulse 61 07/01/18 12:00 Resp 18 07/01/18 12:00 BP 94/50 07/01/18 12:00 Pulse Ox 96 07/01/18 12:00 Intake & Output 06/30/18 07/01/18 07/01/18 18:59 06:59 18:59 Intake Total 1681.25 240 Output Total 400 400 Balance 1281.25 -160 Weight (lbs) 105 lb 105 lb 9.6 oz Intake: Intake, IV Amount 981.25 Sodium Chloride 0.45% 1, 981.25 000 ml @ 125 mls/hr IV . Q8H [facility] Rx#:[id number] Oral 700 240 Output: Urine 400 400 Other: # Bowel Movements 2 1 Stool Characteristics Soft Black Weight Source Bedscale Bedscale Active Medications: Current Medications Acetaminophen (Tylenol) 650 mg PO Q6H PRN PRN Reason: Pain (Moderate) Stop: 08/23/18 13:58 Last Admin: 06/29/18 21:25 Dose: 650 mg Carbidopa/Levodopa (Sinemet 25 Mg-250 Mg) 1 tab PO BID YAMILETH Stop: 08/23/18 19:14 Last Admin: 07/01/18 08:37 Dose: 1 tab Gentamicin Sulfate 100 mg/ (Sodium Chloride) 102.5 mls @ 100 mls/hr IV Q24H YAMILETH Stop: 08/25/18 15:59 Last Admin: 06/30/18 16:07 Dose: 100 mls/hr Lactobacillus Rhamnosus (Culturelle 15b) 1 each PO DAILY YAMILETH Stop: 08/24/18 13:59 Last Admin: 07/01/18 08:37 Dose: 1 each Lorazepam (Ativan) 1 mg IVP Q6HR PRN; Protocol PRN Reason: Anxiety Stop: 08/22/18 22:08 Last Admin: 06/30/18 20:42 Dose: 1 mg Miscellaneous (Vte Chemical Prophylaxis Screen/ Admission) 1 ea PRN PRN PRN Reason: PROTOCOL Stop: 08/23/18 11:53 Miscellaneous (Probiotic Screen) 1 ea PRN PRN PRN Reason: PROTOCOL Stop: 08/24/18 11:17 Miscellaneous (Gentamicin Iv Per Pharmacy) 1 ea PRN PRN PRN Reason: PROTOCOL Stop: 08/24/18 11:39 General: weak HEENT: NC/AT Neck: Supple Lungs: CTAB Cardiovascular: Normal S1, Normal S2 Abdomen: soft, non-tender Extremities: clear Neurological: no change - Procedures Procedures: Procedures Procedure Code Date GROUP PSYCHOTHERAPY 35969 11/24/15 GROUP PSYCHOTHERAPY GZHZZZZ 11/24/15 GROUP PSYCHOTHERAPY 00647 07/25/15 GROUP PSYCHOTHERAPY GZHZZZZ 07/25/15 Internal Medicine Assmt/Plan - Assessment Assessment: calcium channel OD UTI SI depression delusional htn - Plan Plan: ivabx as per id fall precautions continue current plan of care Nutritional Asmnt/Malnutr-PDOC - Dietary Evaluation Malnutrition Findings (Please click <Entered> for more info): Nutritional Asmnt/Malnutrition Start: 06/26/18 14: 49 Text: Status: Complete Freq: Protocol: Document 06/26/18 15:25 CRYSTAL (Rec: 06/26/18 15:47 CRYSTAL [email or web address]) Nutritional Asmnt/Malnutrition Patient General Information Nutritional Screening Moderate Risk Diagnosis calcium channel overdose Pertinent Medical Hx/Surgical Hx HTN, parkinson, h/o alcohol abuse, L shoulder surgery, depression Subjective Information Pt seen lying in bed, shaking, verbal but confused and disoriented, has 1:1 sitter at bedside. Per sitter, pt was not eating much in the past two days, PO intake 20-40%. pt appeared thin. Current Diet Order/ Nutrition Support [facility] soft chopped. Pertinent Medications stephanielle, sabineapro Pertinent Labs 06/26 Cl 109, BUN 27 (trending up), glucose 180 (trending up) 06/25 Mg 1.8 06/24 Mg 1.6 Nutritional Hx/Data Height 5 ft 2 in Height (Calculated Centimeters) 157.5 Current Weight (lbs) 114 lb Weight (Calculated Kilograms) 51.7 Weight (Calculated Grams) 71221.5 [place] Body Weight 110 Body Mass Index (BMI) 20.8 Weight Status Approriate GI Symptoms GI Symptoms None Last BM 06/24 Difficult in: None Skin Integrity/Comment: pressure area reddened to medial occipital, laceration to right ear Current %PO Poor (25-49%) Estimated Nutritional Goals BEE in Kcals: Using Current wt Calories/Kcals/Kg 25-30 Kcals Calculated 8331-7279 Protein: Using Current wt Protein g/k Protein Calculated 52 Fluid: ml 1300-1560ml (1ml/kcal) Nutritional Problem 2. Problem Problem altered nutrition related labs Etiology electrolytes/fluid imbalance, hyperglycemia Signs/Symptoms: Cl 109, BUN 27, Glucose 180, Mg 1.8 1. Problem Problem inadequate food intake Etiology possible confusion Signs/Symptoms: PO intake 20-40% Malnutrition Alert Is there a minimum of two criteria No selected? Query Text:Check all the applicable criteria. A minimum of two criteria are recommended for diagnosis of either severe or non-severe malnutrition. Malnutrition Related to Morbid Obesity Malnutrition related to morbid obesity No Intervention/Recommendation Comments 1. Continue with [facility] soft chopped diet as ordered. Assist pt with all meals ane encourage eating and drinking. Add Ensure TID with meals to increase kcal/protein intake. MD to consider appetite stimulant if PO itnake continue <50%. 2. Monitor PO intake, wt, labs and skin integrity 3. F/U as high risk in 2-3 days, 06/28-06/30 Expected Outcomes/Goals Expected Outcomes/Goals 1. PO intake to improve and meet at least 75% of nutritional needs. 2. Wt stability, skin to remain intact, labs to approach WNL.
--- NOTE | 2018-07-01 13:49 | Progress Notes ---
DATE: 07/01/2018 SUBJECTIVE: Staff was spoken to. The patient is interviewed. Mood is noted to be irritable. Affect is constricted. The patient is very confused and not making much sense. The patient has been shaking her lower extremities vigorously and the patient has been closing her eyes for most of the interview, the patient is going on a tangent and is not able to provide much of information. The patient is acutely confused at this time. PLAN: To continue the patient with the current medications and followup. JOB# [id number]
== END 2018-07-01 17:42 | DRG 917 ==
LOC: ER 15:50 → ICU 16:50 → TELE 06-24 16:06 → MSI 07-01 11:16
PROVIDERS: ADMIT Internal Medicine; ATTEND Internal Medicine
DX: T46.4X2A Poisoning by angiotensin-converting-enzyme inhibitors, intentional self-harm, initial encounter (principal); R53.2 Functional quadriplegia; N39.0 Urinary tract infection, site not specified; F33.3 Major depressive disorder, recurrent, severe with psychotic symptoms; T46.1X2A Poisoning by calcium-channel blockers, intentional self-harm, initial encounter; I10 Essential (primary) hypertension; E83.42 Hypomagnesemia; T50.3X2A Poisoning by electrolytic, caloric and water-balance agents, intentional self-harm, initial encounter; G20 Parkinson's disease; I95.9 Hypotension, unspecified; M81.0 Age-related osteoporosis without current pathological fracture; F10.10 Alcohol abuse, uncomplicated; F03.90 Unspecified dementia, unspecified severity, without behavioral disturbance, psychotic disturbance, mood disturbance, and anxiety; I48.91 Unspecified atrial fibrillation; Z88.5 Allergy status to narcotic agent; Z88.0 Allergy status to penicillin; Y92.89 Other specified places as the place of occurrence of the external cause
CPT/HCPCS: 36415-UA; 72170-TC; 80048-TC; 80053-TC; 80170-TC; 80307; 80329-TC; 81001-TC; 82550-TC; 82948-90; 83036-90; 83735-TC; 83880-TC; 84100-TC; 84484-TC; 85007-TC; 85025-TC; 85610-TC; 87086-90; 93005; J0610; J0744; J1580; J1956; J2060; J3475; X6452; X7704; Z7610

== ENCOUNTER 2018-07-01 17:47 | Inpatient (IN) | payer MEDICARE ==
[2018-07-01 19:59] VITALS: BP 120/65
[2018-07-01] MEDS ORDERED: Magnesium Hydroxide (MOM) 30 mL UDC PO PRN (21:13)
[2018-07-01] MEDS ORDERED: Maalox 30 mL Cup PO PRN (21:13)
[2018-07-02 07:48] LABS: CHOLESTEROL 150 mg/dL (<200); HDL -HIGH DENSITY LIPOPROTEIN 43 mg/dL (23-92); TRIGLYCERIDES 71 mg/dL (<150)
[2018-07-02] MEDS: Multivitamin Tab PO SCH (09:06)
[2018-07-02] MEDS: Lactobacillus Rhamnosus GG 15 Billion CFU CAP.SPRINK PO SCH (09:06)
[2018-07-02] MEDS: Gentamicin 80 mg/2mL Vial IM SCH (17:06)
--- NOTE | 2018-07-03 03:42 | Psychiatric Evaluation ---
DATE OF SERVICE: 07/01/2018 IDENTIFYING DATA: The patient is a 77-year-old woman, , living with her family. Information was obtained by directly interviewing the patient as well as reviewing the admission papers and these are reliable. JUSTIFICATION FOR HOSPITALIZATION: The patient is admitted on a 5250 after she overdosed on the antihypertensive medications in a suicidal attempt. Information was obtained by directly interviewing the patient as well as talking to the and the patient has initially been admitted to the medical unit, where she has been medically stabilized and transferred over here for further care. During the evaluation, the patient has been superficially cooperative, closing her eyes tightly, and not providing much of information. The patient had been very, very psychotic until yesterday, but today she is very depressed and is not providing much of information. Sleep and appetite prior to the hospitalization are reported to be poor. PAST PSYCHIATRIC HISTORY: The patient had been under my care on few occasions. She has been diagnosed with major depressive disorder and is being followed up on an outpatient basis. MEDICAL HISTORY AND PHYSICAL EXAMINATION: Requested to be done by Dr. Gray. SUBSTANCE ABUSE HISTORY: The patient has a history of alcohol problem in the past, but lately has not been drinking that much. STRENGTH AND ASSETS: The patient is motivated. is very supportive. MENTAL STATUS EXAMINATION: The patient is a 77-year-old woman, thin built, superficially cooperative. Eye contact is poor. Mood is noted to be depressed. Affect is constricted. The patient is very resistive. Insight and judgment at this time are noted to be still impaired. Impulse control is noted to be poor. Coping skills are noted to be very poor. The patient made suicidal attempt by overdosing on medications. The patient is not homicidal. Psychotic symptoms could not be elicited at this time because the patient is not cooperative. DIAGNOSTIC IMPRESSION: AXIS I: Major depressive disorder, recurrent and severe. AXIS II: None. AXIS III: As per Dr. Gray. IMMEDIATE TREATMENT PLAN: The patient is going to be observed on inpatient unit, provided with supportive psychotherapy. The patient is going to be closely monitored and was started on the Lexapro. ESTIMATED LENGTH OF STAY: 5-7 days. DISCHARGE CRITERIA: When she no longer a threat to self or others and be able to cope up with the stress. JOB# [id number]
[2018-07-03] MEDS: Lactobacillus Rhamnosus GG 15 Billion CFU CAP.SPRINK PO SCH (09:19)
[2018-07-03] MEDS: Multivitamin Tab PO SCH (09:20)
--- NOTE | 2018-07-03 14:55 | History & Physical ---
ADMIT DATE: 07/03/2018 CHIEF COMPLAINT: Medical evaluation of patient who was admitted in [facility]. HISTORY OF PRESENT ILLNESS: This is a 77-year-old female who was transferred from Med/Surg unit for suicidal ideation. Upon examining the patient, the patient is confused and refuses to speak. PAST MEDICAL HISTORY: Hypertension, Parkinson's, alcohol abuse. PAST SURGICAL HISTORY: Left shoulder surgery. PSYCHIATRIC HISTORY: Depression. FAMILY HISTORY: Noncontributory. REVIEW OF SYSTEMS: Unable to obtain at this time due to the patient's mental status. PHYSICAL EXAMINATION: GENERAL: Elderly female, awake, confused, in no apparent distress. VITAL SIGNS: Temperature 98.2, heart rate 60, blood pressure 126/73, respiration 18, O2 96. HEENT: Head: Normocephalic, atraumatic. NECK: Supple. No mass. LUNGS: Clear bilaterally. ABDOMEN: Soft, nontender. LABORATORY DATA: Done on 07/02/2018, triglycerides 71, cholesterol 150, LDL 91, HDL 43. ASSESSMENT: Suicidal ideation, hypertension, Parkinson's, alcohol abuse, confusion. PLAN: Continue the patient's home medications. Fall precautions will be initiated. We will continue to monitor this patient. JOB# [id number]
[2018-07-03] MEDS: Gentamicin 80 mg/2mL Vial IM SCH (15:45)
--- NOTE | 2018-07-04 04:00 | Progress Notes ---
DATE: 07/03/2018 SUBJECTIVE: Staff was spoken to. The patient is interviewed. Mood is noted to be depressed. Affect is constricted. The patient is alert, but is not making much sense. The patient is still very confused, coping skills are noted to be extremely poor. No side effects to the any of the medications are noted. The patient has been currently on escitalopram 5 mg and the patient is going to be closely monitored for any side effects. ASSESSMENT: The patient is still depressed. PLAN: To continue the patient with the current medications and followup. JOB# [id number]
[2018-07-04] MEDS: Lactobacillus Rhamnosus GG 15 Billion CFU CAP.SPRINK PO SCH (09:45)
[2018-07-04] MEDS: Multivitamin Tab PO SCH (09:45)
[2018-07-04] MEDS: Escitalopram Oxalate 5 mg Tab PO SCH (09:46)
--- NOTE | 2018-07-04 15:10 | Internal Medicine Prog Note ---
Internal Medicine Subjective - Subjective Patient seen and examined:: chart reviewed Patient is:: awake, confused, other (depressed ) Patient Complaints of:: other (depressed ) Per staff patient has:: no adverse event, tolerating meds Internal Medicine Objective - Results Recent Labs: Laboratory Last Values Triglycerides 71 mg/dL (<150) 07/02/18 07:00 Cholesterol 150 mg/dL (<200) 07/02/18 07:00 LDL Cholesterol Direct 91 mg/dL (75-193) 07/02/18 07:00 HDL Cholesterol 43 mg/dL (23-92) 07/02/18 07:00 - Physical Exam Vitals and I&O: Vital Signs Temp 97.9 F 07/03/18 20:00 Pulse 73 07/04/18 09:46 Resp 18 07/03/18 20:00 BP 128/62 07/04/18 09:46 Pulse Ox 96 07/03/18 20:00 Intake & Output 07/03/18 07/04/18 07/04/18 18:59 06:59 18:59 Intake Total 1200 120 Balance 1200 120 Intake: Oral 1200 120 Other: # Voids 2 # Bowel Movements 1 Active Medications: Current Medications Acetaminophen (Tylenol) 650 mg PO Q4HR PRN PRN Reason: Mild Pain / Temp above 100 Stop: 08/30/18 21:12 Last Admin: 07/03/18 21:10 Dose: 650 mg Al Hydrox/Mg Hydrox/Simethicone (Maalox) 30 ml PO Q4HR PRN PRN Reason: GI DISTRESS Stop: 08/30/18 21:12 Atenolol (Tenormin) 25 mg PO DAILY [facility] Stop: 08/31/18 08:59 Last Admin: 07/04/18 09:46 Dose: 25 mg Carbidopa/Levodopa (Sinemet 25 Mg-250 Mg) 1 tab PO BID YAMILETH Stop: 08/31/18 08:59 Last Admin: 07/04/18 09:46 Dose: 1 tab Escitalopram Oxalate (Lexapro) 5 mg PO DAILY [facility] Stop: 09/01/18 08:59 Last Admin: 07/04/18 09:46 Dose: 5 mg Gentamicin Sulfate (Garamycin) 100 mg IM Q24H [facility] Stop: 07/04/18 15:59 Last Admin: 07/03/18 15:45 Dose: 100 mg Lactobacillus Rhamnosus (Culturelle 15b) 1 each PO DAILY YAMILETH Stop: 08/31/18 08:59 Last Admin: 07/04/18 09:45 Dose: 1 each Lorazepam (Ativan) 0.5 mg PO Q4HR PRN; Protocol PRN Reason: Anxiety Stop: 07/31/18 21:12 Last Admin: 07/03/18 21:10 Dose: 0.5 mg Magnesium Hydroxide (Milk Of Magnesia) 30 ml PO HS PRN PRN Reason: Constipation Multivitamins/Vitamin C (Theragran) 1 tab PO DAILY YAMILETH Stop: 08/31/18 08:59 Last Admin: 07/04/18 09:45 Dose: 1 tab Nitrofurantoin Macrocrystals (Macrobid) 100 mg PO BID YAMILETH; Protocol Stop: 07/14/18 08:59 Last Admin: 07/04/18 09:45 Dose: 100 mg Rivaroxaban (Xarelto) 20 mg PO DAILY YAMILETH Stop: 08/31/18 08:59 Last Admin: 07/04/18 09:45 Dose: 20 mg Zolpidem Tartrate (Ambien) 5 mg PO HS PRN PRN Reason: Insomnia Stop: 08/30/18 21:12 General: other (confused, depressed ) HEENT: NC/AT Neck: Supple Lungs: CTAB Cardiovascular: Normal S1, Normal S2 Abdomen: soft, non-tender Extremities: clear, edema Neurological: no change, alert - Procedures Procedures: Procedures Procedure Code Date GROUP PSYCHOTHERAPY 90334 11/24/15 GROUP PSYCHOTHERAPY GZHZZZZ 11/24/15 GROUP PSYCHOTHERAPY 23553 07/25/15 GROUP PSYCHOTHERAPY GZHZZZZ 07/25/15 Internal Medicine Assmt/Plan - Assessment Assessment: depression si with plan htn parkinson's disease alcohol abuse - Plan Plan: as per psych will montior Nutritional Asmnt/Malnutr-PDOC - Dietary Evaluation Malnutrition Findings (Please click <Entered> for more info): Nutritional Asmnt/Malnutrition Start: 07/04/18 13: 34 Text: Status: Active Freq: Protocol: Document 07/04/18 13:34 LCFAITHG (Rec: 07/04/18 13:45 [email or web address] [email or web address]) Nutritional Asmnt/Malnutrition Patient General Information Nutritional Screening Moderate Risk Diagnosis psychosis NOS Pertinent Medical Hx/Surgical Hx HTN, parkinson's alcohol abuse , depression, left shoulder surgery Subjective Information Pt seen lying in bed at time of visit, very confused, not able to communicate. Spoke with [employer] who fed pt this morning, [employer] stated pt drank 100% of Ensure, 50% of cream of wheat and pancakes. Pt appeared skinny. Current Diet Order/ Nutrition Support [facility] soft chopped Ensure Enlive TID Pertinent Medications garamycin, culturelle, theragran Pertinent Labs 07/02 lipid pannels WNL Nutritional Hx/Data Height 1.57 m Height (Calculated Centimeters) 157.5 Current Weight (lbs) 47.627 kg Weight (Calculated Kilograms) 47.6 Weight (Calculated Grams) 54724.2 [place] Body Weight 110 Body Mass Index (BMI) 19.2 Weight Status Approriate GI Symptoms GI Symptoms None Last BM 07/03 Difficult in: None Skin Integrity/Comment: intact Current %PO Poor (25-49%) Estimated Nutritional Goals BEE in Kcals: Using Current wt Calories/Kcals/Kg 27-32 Kcals Calculated 5550-9645 Protein: Using Current wt Protein g/k-1.2 Protein Calculated 48-58 Fluid: ml 1296-1536ml (1ml/kcal) Nutritional Problem 1. Problem Problem inadequate food intake Etiology confusion Signs/Symptoms: PO intake < 50% Intervention/Recommendation Comments 1. Continue with current diet as ordered. 2. Monitor PO intake, wt, labs and skin integrity 3. F/U as Expected Outcomes/Goals Expected Outcomes/Goals 1. PO intake to meet at least 75% of nutritional needs. 2. Wt stability, skin to remain intact, labs to approach WNL.
--- NOTE | 2018-07-05 01:40 | Consultation ---
DATE OF CONSULTATION: 07/03/2018 REFERRING PHYSICIAN: Jesus Alberto Tracy M.D. TYPE OF CONSULTATION: Psychology. HISTORY OF PRESENT ILLNESS: The patient is a 77-year-old female. The following is by review of the medical record and by patient's self report. The patient is being admitted on a 5250 after a suicidal attempt by overdose on the patient's antihypertensive medications. According to the patient's , the patient was initially admitted through the ER into the medical unit and once stabilized transferred here to the geropsychiatric unit for further care. Upon interview, the patient is avoiding any eye contact and is not providing much information. The patient presents with a depressed mood and withdrawn behavior. According to the record her appetite is poor and sleep is poor. Records indicate some possible psychotic process. The patient did not answer questions about suicidal ideation, plan or intention or reasons for the suicide attempt. PAST MEDICAL HISTORY: Please see history and physical by Dr. Gray. PAST PSYCHIATRIC HISTORY: The patient is under the care of a psychiatrist on an outpatient basis. The patient has a history of major depressive disorder, recurrent, severe. SUBSTANCE ABUSE HISTORY: The patient has a history of alcohol abuse. Records indicate the patient has currently been drinking at home. There is no information on frequency or amount. The patient has no history of illicit drug use or tobacco use. PSYCHOSOCIAL HISTORY: The patient is and lives with her at home. The patient did not answer questions about occupational or educational history or jewish affiliation. The patient did not answer questions about history of physical or sexual abuse or any current legal problems. The patient's family is involved in her care. MENTAL STATUS EXAMINATION: The patient appears to be her stated age. The patient appears to be thin built and somewhat frail. Eye contact is poor. Attitude is guarded. Mood is depressed. Speech is selectively mute at times. Affect is constricted. The patient presents as being somewhat resistant to the clinical interview. The patient did not answer questions about auditory or visual hallucinations or experiencing any delusions. The patient did not answer questions about suicidal ideation, plan or intention. When asked about the current suicide attempt, the patient did not respond. Concentration is poor. Impulse control is impaired. Sensorium is alert and oriented to self only. The patient did not participate in the memory assessment. The patient is generally uncooperative; therefore, the mental status examination will be continued on follow up. At the time of this clinical interview, the patient did not participate in the other clinical interview questions. Insight is poor. Judgment is impaired. DIAGNOSTIC IMPRESSION: AXIS I: History of major depressive disorder, recurrent, severe with suicidal ideation. AXIS II: Deferred. AXIS III: Per Dr. Gray. TREATMENT PLAN: The patient has been seen by Dr. Tracy for psychiatric evaluation and for the management of the patient's psychotropic medications. We will provide supportive psychotherapy to include reality orientation, differentiation and integration. We will provide daily opportunities for the patient to verbally contract for safety and no self-harm. We will provide suicide prevention. We will encourage the patient to verbalize her concerns versus acting out self destructively. We will provide cognitive behavioral therapy if the patient is able to participate in this type of psychotherapeutic intervention. We will provide coping strategies for phase of life issues. The patient's alcohol use will be addressed. We will provide motivational interviewing for the patient to become abstinent from alcohol and to continue sobriety. We will provide other outpatient options for this type of treatment as well including the possibility of dual diagnosis interventions. Thank you, Dr. Tracy, for this consult and the opportunity to participate in this patient's care. [facility]# [id number] MAURILIO
--- NOTE | 2018-07-05 03:59 | Progress Notes ---
DATE: 07/04/2018 PSYCHIATRIC PROGRESS NOTE SUBJECTIVE: Staff was spoken to. The patient is interviewed. Mood is noted to be irritable. Affect is constricted. Coping skills are noted to be poor. The patient is still depressed. The patient is still confused, but the agitation seems to be coming down. No side effects to the medications are noted at this time. ASSESSMENT: The patient is still depressed. PLAN: Continue the patient with supportive therapy and follow up. [facility]# [id number]
[2018-07-05] MEDS: Multivitamin Tab PO SCH (09:45)
[2018-07-05] MEDS: Escitalopram Oxalate 5 mg Tab PO SCH (09:45)
[2018-07-05] MEDS: Lactobacillus Rhamnosus GG 15 Billion CFU CAP.SPRINK PO SCH (09:45)
--- NOTE | 2018-07-05 12:58 | Progress Notes ---
DATE: 07/05/2018 SUBJECTIVE: Staff was spoken to. The patient is interviewed. Mood is noted to be irritable. Affect is constricted. Insight and judgment are noted to be still impaired. Impulse control is noted to be limited. The patient has tremor in the lower extremities and has been constantly shaking her legs. The patient when talks mumbles and is not able to articulate clearly. ASSESSMENT: The patient is still depressed. PLAN: To continue the patient with the supportive therapy. Encouraged the patient to verbalize the concerns rather than to act out. JOB# [id number]
--- NOTE | 2018-07-05 22:32 | Progress Notes ---
DATE: 07/05/2018 SUBJECTIVE: The patient was seen in her room. The patient is asleep, but easily arousable. The patient appears to be guarded and irritable, appears to be depressed and withdrawn with episodes of confusion. Otherwise, the patient is in no acute distress. OBJECTIVE: VITAL SIGNS: Temperature 97.9, heart rate 79, blood pressure 146/87, respirations of 19, and 94% on room air. HEENT: Head is atraumatic and normocephalic. Eyes: Bilateral conjunctivae are clear. Bilateral pupils are equally round and reactive. NECK: Supple. No JVD. CARDIOVASCULAR: S1 and S2, without murmur. PULMONARY: Clear to auscultation. GASTROINTESTINAL: Soft and nontender without guarding. Positive bowel sounds. MUSCULOSKELETAL: No clubbing, no cyanosis noted. ASSESSMENT: 1. Major depression disorder. 2. Suicidal ideation. 3. Parkinson's disease. 4. Hypertension. PLAN: We will keep the patient inpatient Psychiatric Unit. We will follow up with a psychiatrist to monitor the patient's condition and behavior. Treatment plans were discussed with the patient's nurse. Treatment plans were discussed with Dr. Gray. JOB# [id number]
--- NOTE | 2018-07-06 08:39 | Internal Medicine Prog Note ---
Internal Medicine Subjective - Subjective Patient seen and examined:: chart reviewed Patient is:: awake, confused, other (depressed , irritable ) Patient Complaints of:: other (depressed ) Per staff patient has:: no adverse event, tolerating meds Internal Medicine Objective - Results Recent Labs: Laboratory Last Values Triglycerides 71 mg/dL (<150) 07/02/18 07:00 Cholesterol 150 mg/dL (<200) 07/02/18 07:00 LDL Cholesterol Direct 91 mg/dL (75-193) 07/02/18 07:00 HDL Cholesterol 43 mg/dL (23-92) 07/02/18 07:00 - Physical Exam Vitals and I&O: Vital Signs Temp 96.8 F 07/06/18 05:57 Pulse 63 07/06/18 05:57 Resp 20 07/06/18 05:57 BP 143/59 07/06/18 05:57 Pulse Ox 95 07/06/18 05:57 Intake & Output 07/05/18 07/06/18 07/06/18 18:59 06:59 18:59 Other: # Voids 3 # Bowel Movements 1 Active Medications: Current Medications Acetaminophen (Tylenol) 650 mg PO Q4HR PRN PRN Reason: Mild Pain / Temp above 100 Stop: 08/30/18 21:12 Last Admin: 07/03/18 21:10 Dose: 650 mg Al Hydrox/Mg Hydrox/Simethicone (Maalox) 30 ml PO Q4HR PRN PRN Reason: GI DISTRESS Stop: 08/30/18 21:12 Atenolol (Tenormin) 25 mg PO DAILY [facility] Stop: 08/31/18 08:59 Last Admin: 07/05/18 09:44 Dose: 25 mg Carbidopa/Levodopa (Sinemet 25 Mg-250 Mg) 1 tab PO BID [facility] Stop: 08/31/18 08:59 Last Admin: 07/05/18 16:57 Dose: 1 tab Escitalopram Oxalate (Lexapro) 5 mg PO DAILY [facility] Stop: 09/01/18 08:59 Last Admin: 07/05/18 09:45 Dose: 5 mg Lactobacillus Rhamnosus (Culturelle 15b) 1 each PO DAILY [facility] Stop: 08/31/18 08:59 Last Admin: 07/05/18 09:45 Dose: 1 each Lorazepam (Ativan) 0.5 mg PO Q4HR PRN; Protocol PRN Reason: Anxiety Stop: 07/31/18 21:12 Last Admin: 07/03/18 21:10 Dose: 0.5 mg Magnesium Hydroxide (Milk Of Magnesia) 30 ml PO HS PRN PRN Reason: Constipation Multivitamins/Vitamin C (Theragran) 1 tab PO DAILY [facility] Stop: 08/31/18 08:59 Last Admin: 07/05/18 09:45 Dose: 1 tab Nitrofurantoin Macrocrystals (Macrobid) 100 mg PO BID [facility]; Protocol Stop: 07/14/18 08:59 Last Admin: 07/05/18 16:57 Dose: 100 mg Rivaroxaban (Xarelto) 20 mg PO DAILY [facility] Stop: 08/31/18 08:59 Last Admin: 07/05/18 09:45 Dose: 20 mg Zolpidem Tartrate (Ambien) 5 mg PO HS PRN PRN Reason: Insomnia Stop: 08/30/18 21:12 General: other (confused, depressed ) HEENT: NC/AT Neck: Supple Lungs: CTAB Cardiovascular: Normal S1, Normal S2 Abdomen: soft, non-tender Extremities: clear, edema Neurological: no change, alert - Procedures Procedures: Procedures Procedure Code Date GROUP PSYCHOTHERAPY 96287 11/24/15 GROUP PSYCHOTHERAPY GZHZZZZ 11/24/15 GROUP PSYCHOTHERAPY 50073 07/25/15 GROUP PSYCHOTHERAPY GZHZZZZ 07/25/15 Internal Medicine Assmt/Plan - Assessment Assessment: depression si with plan htn parkinson's disease alcohol abuse - Plan Plan: as per psych will montior Nutritional Asmnt/Malnutr-PDOC - Dietary Evaluation Malnutrition Findings (Please click <Entered> for more info): Nutritional Asmnt/Malnutrition Start: 07/04/18 13: 34 Text: Status: Complete Freq: Protocol: Document 07/04/18 13:34 LCHENG (Rec: 07/04/18 13:45 [email or web address]) Nutritional Asmnt/Malnutrition Patient General Information Nutritional Screening Moderate Risk Diagnosis psychosis NOS Pertinent Medical Hx/Surgical Hx HTN, parkinson's alcohol abuse , depression, left shoulder surgery Subjective Information Pt seen lying in bed at time of visit, very confused, not able to communicate. Spoke with [employer] who fed pt this morning, [employer] stated pt drank 100% of Ensure, 50% of cream of wheat and pancakes. Pt appeared skinny. Visited again pt in the afternoon, and [employer] stated pt ate well at lunch, 50% of lunch with 100% of Ensure. Current Diet Order/ Nutrition Support [facility] soft chopped Ensure Enlive TID Pertinent Medications garamycin, culturelle, theragran Pertinent Labs 07/02 lipid pannels WNL Nutritional Hx/Data Height 1.57 m Height (Calculated Centimeters) 157.5 Current Weight (lbs) 47.627 kg Weight (Calculated Kilograms) 47.6 Weight (Calculated Grams) 18634.2 [place] Body Weight 110 Body Mass Index (BMI) 19.2 Weight Status Approriate GI Symptoms GI Symptoms None Last BM 07/03 Difficult in: None Skin Integrity/Comment: intact Current %PO Poor (25-49%) Estimated Nutritional Goals BEE in Kcals: Using Current wt Calories/Kcals/Kg 27-32 Kcals Calculated 6860-2315 Protein: Using Current wt Protein g/k-1.2 Protein Calculated 48-58 Fluid: ml 1296-1536ml (1ml/kcal) Nutritional Problem 1. Problem Problem inadequate food intake Etiology confusion Signs/Symptoms: PO intake <=50% Intervention/Recommendation Comments 1. Continue with [facility] soft chopped diet with Ensure TID as ordered. Nurse please assist pt with all meals and encourage pt to eat. 2. Monitor PO intake, wt, labs and skin integrity 3. F/U as moderate risk in 3-5 days, 07/07-07/09, PO check 07/07 Expected Outcomes/Goals Expected Outcomes/Goals 1. PO intake to meet at least 75% of nutritional needs. 2. Wt stability, skin to remain intact, labs to approach WNL.
[2018-07-06] MEDS: Lactobacillus Rhamnosus GG 15 Billion CFU CAP.SPRINK PO SCH (09:32)
[2018-07-06] MEDS: Multivitamin Tab PO SCH (09:32)
[2018-07-06] MEDS: Escitalopram Oxalate 5 mg Tab PO SCH (09:41)
--- NOTE | 2018-07-06 13:25 | Progress Notes ---
DATE: 07/06/2018 SUBJECTIVE: Staff was spoken to. The patient is interviewed. Mood is noted to be less irritable. Affect is constricted. The patient is going on a tangent. The patient has no insight into her illness. Coping skills at this time are noted to be very poor. The patient has been still depressed and not able to contract for safety. The patient is very paranoid and has been accusing her of all the things that he has done to hurt her. ASSESSMENT: The patient is still depressed and psychotic. PLAN: To continue the patient with Lexapro and followup. JOB# [id number]
[2018-07-07] MEDS: Multivitamin Tab PO SCH (08:48)
[2018-07-07] MEDS: Lactobacillus Rhamnosus GG 15 Billion CFU CAP.SPRINK PO SCH (08:48)
[2018-07-07] MEDS: Escitalopram Oxalate 5 mg Tab PO SCH (09:09)
--- NOTE | 2018-07-07 10:30 | Internal Medicine Prog Note ---
Internal Medicine Subjective - Subjective Patient seen and examined:: chart reviewed Patient is:: awake, confused, other (still depressed withdrawn ) Patient Complaints of:: other (depressed ) Per staff patient has:: tolerating meds Internal Medicine Objective - Results Recent Labs: Laboratory Last Values Triglycerides 71 mg/dL (<150) 07/02/18 07:00 Cholesterol 150 mg/dL (<200) 07/02/18 07:00 LDL Cholesterol Direct 91 mg/dL (75-193) 07/02/18 07:00 HDL Cholesterol 43 mg/dL (23-92) 07/02/18 07:00 - Physical Exam Vitals and I&O: Vital Signs Temp 97 F 07/07/18 06:20 Pulse 77 07/07/18 08:48 Resp 18 07/07/18 06:20 BP 129/70 07/07/18 08:48 Pulse Ox 95 07/07/18 06:20 Intake & Output 07/06/18 07/07/18 07/07/18 18:59 06:59 18:59 Intake Total 700 120 Balance 700 120 Intake: Oral 700 120 Other: # Voids 3 3 # Bowel Movements 0 Stool Characteristics Soft Soft Active Medications: Current Medications Acetaminophen (Tylenol) 650 mg PO Q4HR PRN PRN Reason: Mild Pain / Temp above 100 Stop: 08/30/18 21:12 Last Admin: 07/06/18 20:48 Dose: 650 mg Al Hydrox/Mg Hydrox/Simethicone (Maalox) 30 ml PO Q4HR PRN PRN Reason: GI DISTRESS Stop: 08/30/18 21:12 Atenolol (Tenormin) 25 mg PO DAILY [facility] Stop: 08/31/18 08:59 Last Admin: 07/07/18 08:48 Dose: 25 mg Carbidopa/Levodopa (Sinemet 25 Mg-250 Mg) 1 tab PO BID [facility] Stop: 08/31/18 08:59 Last Admin: 07/07/18 09:08 Dose: 1 tab Escitalopram Oxalate (Lexapro) 10 mg PO DAILY [facility] Stop: 09/06/18 08:59 Lactobacillus Rhamnosus (Culturelle 15b) 1 each PO DAILY [facility] Stop: 08/31/18 08:59 Last Admin: 07/07/18 08:48 Dose: 1 each Lorazepam (Ativan) 0.5 mg PO Q4HR PRN; Protocol PRN Reason: Anxiety Stop: 07/31/18 21:12 Last Admin: 07/03/18 21:10 Dose: 0.5 mg Magnesium Hydroxide (Milk Of Magnesia) 30 ml PO HS PRN PRN Reason: Constipation Multivitamins/Vitamin C (Theragran) 1 tab PO DAILY [facility] Stop: 08/31/18 08:59 Last Admin: 07/07/18 08:48 Dose: 1 tab Nitrofurantoin Macrocrystals (Macrobid) 100 mg PO BID [facility]; Protocol Stop: 07/14/18 08:59 Last Admin: 07/07/18 09:08 Dose: 100 mg Rivaroxaban (Xarelto) 20 mg PO DAILY [facility] Stop: 08/31/18 08:59 Last Admin: 07/07/18 08:49 Dose: 20 mg Zolpidem Tartrate (Ambien) 5 mg PO HS PRN PRN Reason: Insomnia Stop: 08/30/18 21:12 General: other (confused, depressed ) HEENT: NC/AT Neck: Supple Lungs: CTAB Cardiovascular: Normal S1, Normal S2 Abdomen: soft, non-tender Extremities: clear, edema Neurological: no change, alert - Procedures Procedures: Procedures Procedure Code Date GROUP PSYCHOTHERAPY 77746 11/24/15 GROUP PSYCHOTHERAPY GZHZZZZ 11/24/15 GROUP PSYCHOTHERAPY 36229 07/25/15 GROUP PSYCHOTHERAPY GZHZZZZ 07/25/15 Internal Medicine Assmt/Plan - Assessment Assessment: depression si with plan htn parkinson's disease alcohol abuse - Plan Plan: as per psych will montior Nutritional Asmnt/Malnutr-PDOC - Dietary Evaluation Malnutrition Findings (Please click <Entered> for more info): Nutritional Asmnt/Malnutrition Start: 07/04/18 13: 34 Text: Status: Complete Freq: Protocol: Document 07/04/18 13:34 LCHENG (Rec: 07/04/18 13:45 [email or web address]) Nutritional Asmnt/Malnutrition Patient General Information Nutritional Screening Moderate Risk Diagnosis psychosis NOS Pertinent Medical Hx/Surgical Hx HTN, parkinson's alcohol abuse , depression, left shoulder surgery Subjective Information Pt seen lying in bed at time of visit, very confused, not able to communicate. Spoke with [employer] who fed pt this morning, [employer] stated pt drank 100% of Ensure, 50% of cream of wheat and pancakes. Pt appeared skinny. Visited again pt in the afternoon, and [employer] stated pt ate well at lunch, 50% of lunch with 100% of Ensure. Current Diet Order/ Nutrition Support [facility] soft chopped Ensure Enlive TID Pertinent Medications garamycin, culturelle, theragran Pertinent Labs 07/02 lipid pannels WNL Nutritional Hx/Data Height 1.57 m Height (Calculated Centimeters) 157.5 Current Weight (lbs) 47.627 kg Weight (Calculated Kilograms) 47.6 Weight (Calculated Grams) 76735.2 [place] Body Weight 110 Body Mass Index (BMI) 19.2 Weight Status Approriate GI Symptoms GI Symptoms None Last BM 07/03 Difficult in: None Skin Integrity/Comment: intact Current %PO Poor (25-49%) Estimated Nutritional Goals BEE in Kcals: Using Current wt Calories/Kcals/Kg 27-32 Kcals Calculated 8526-7404 Protein: Using Current wt Protein g/k-1.2 Protein Calculated 48-58 Fluid: ml 1296-1536ml (1ml/kcal) Nutritional Problem 1. Problem Problem inadequate food intake Etiology confusion Signs/Symptoms: PO intake <=50% Intervention/Recommendation Comments 1. Continue with [facility] soft chopped diet with Ensure TID as ordered. Nurse please assist pt with all meals and encourage pt to eat. 2. Monitor PO intake, wt, labs and skin integrity 3. F/U as moderate risk in 3-5 days, 07/07-07/09, PO check 07/07 Expected Outcomes/Goals Expected Outcomes/Goals 1. PO intake to meet at least 75% of nutritional needs. 2. Wt stability, skin to remain intact, labs to approach WNL.
--- NOTE | 2018-07-07 21:07 | Progress Notes ---
DATE: 07/07/2018 PSYCHIATRIC PROGRESS NOTE Staff was spoken to. The patient is interviewed. Mood is noted to be irritable. Affect is constricted. Insight and judgment at this time are noted to be still impaired. Impulse control is noted to be limited. Coping skills also noted to be limited. The patient has been having difficult time to cope with the stress. The patient is very angry and upset because the did not come in yesterday and the patient is stating that she is still feeling depressed and hence the dose of the Lexapro has been increased to 10 mg and the patient is going to be followed up with the supportive therapy. Please note that the patient is not ready to be discharged to a low level of care yet. [facility]# [id number]
[2018-07-08] MEDS: Multivitamin Tab PO SCH (08:43)
[2018-07-08] MEDS: Lactobacillus Rhamnosus GG 15 Billion CFU CAP.SPRINK PO SCH (08:43)
--- NOTE | 2018-07-08 20:33 | Internal Medicine Prog Note ---
Internal Medicine Subjective - Subjective Service Date: 07/08/18 Patient is:: awake, confused, other (still depressed withdrawn ) Patient Complaints of:: other (depressed ) Per staff patient has:: tolerating meds Internal Medicine Objective - Results Recent Labs: Laboratory Last Values POC Glucose 135 MG/DL (70-105) H 07/04/18 21:00 Triglycerides 71 mg/dL (<150) 07/02/18 07:00 Cholesterol 150 mg/dL (<200) 07/02/18 07:00 LDL Cholesterol Direct 91 mg/dL (75-193) 07/02/18 07:00 HDL Cholesterol 43 mg/dL (23-92) 07/02/18 07:00 - Physical Exam Vitals and I&O: Vital Signs Temp 98.4 F 07/08/18 20:07 Pulse 70 07/08/18 20:07 Resp 18 07/08/18 20:07 BP 128/68 07/08/18 20:07 Pulse Ox 98 07/08/18 20:07 Intake & Output 07/08/18 07/08/18 07/09/18 06:59 18:59 06:59 Intake Total 180 850 120 Output Total 1 Balance 179 850 120 Intake: Oral 180 850 120 Output: Urine/Stool Mix 1 Other: # Voids 1 4 3 # Bowel Movements 1 2 0 Stool Characteristics Soft Soft Soft Active Medications: Current Medications Acetaminophen (Tylenol) 650 mg PO Q4HR PRN PRN Reason: Mild Pain / Temp above 100 Stop: 08/30/18 21:12 Last Admin: 07/06/18 20:48 Dose: 650 mg Al Hydrox/Mg Hydrox/Simethicone (Maalox) 30 ml PO Q4HR PRN PRN Reason: GI DISTRESS Stop: 08/30/18 21:12 Atenolol (Tenormin) 25 mg PO DAILY [facility] Stop: 08/31/18 08:59 Last Admin: 07/08/18 08:44 Dose: 25 mg Carbidopa/Levodopa (Sinemet 25 Mg-250 Mg) 1 tab PO BID [facility] Stop: 08/31/18 08:59 Last Admin: 07/08/18 16:30 Dose: 1 tab Escitalopram Oxalate (Lexapro) 10 mg PO DAILY [facility] Stop: 09/06/18 08:59 Last Admin: 07/08/18 08:43 Dose: 10 mg Lactobacillus Rhamnosus (Culturelle 15b) 1 each PO DAILY [facility] Stop: 08/31/18 08:59 Last Admin: 07/08/18 08:43 Dose: 1 each Lorazepam (Ativan) 0.5 mg PO Q4HR PRN; Protocol PRN Reason: Anxiety Stop: 07/31/18 21:12 Last Admin: 07/03/18 21:10 Dose: 0.5 mg Magnesium Hydroxide (Milk Of Magnesia) 30 ml PO HS PRN PRN Reason: Constipation Multivitamins/Vitamin C (Theragran) 1 tab PO DAILY [facility] Stop: 08/31/18 08:59 Last Admin: 07/08/18 08:43 Dose: 1 tab Nitrofurantoin Macrocrystals (Macrobid) 100 mg PO BID [facility]; Protocol Stop: 07/14/18 08:59 Last Admin: 07/08/18 16:30 Dose: 100 mg Rivaroxaban (Xarelto) 20 mg PO DAILY [facility] Stop: 08/31/18 08:59 Last Admin: 07/08/18 08:44 Dose: 20 mg Zolpidem Tartrate (Ambien) 5 mg PO HS PRN PRN Reason: Insomnia Stop: 08/30/18 21:12 General: other (confused, depressed ) HEENT: NC/AT Neck: Supple Lungs: CTAB Cardiovascular: Normal S1, Normal S2 Abdomen: soft, non-tender Extremities: clear, edema Neurological: no change, alert - Procedures Procedures: Procedures Procedure Code Date GROUP PSYCHOTHERAPY 24025 11/24/15 GROUP PSYCHOTHERAPY GZHZZZZ 11/24/15 GROUP PSYCHOTHERAPY 29171 07/25/15 GROUP PSYCHOTHERAPY GZHZZZZ 07/25/15 Internal Medicine Assmt/Plan - Assessment Assessment: depression si with plan htn parkinson's disease alcohol abuse - Plan Plan: as per psych will montior Nutritional Asmnt/Malnutr-PDOC - Dietary Evaluation Malnutrition Findings (Please click <Entered> for more info): Nutritional Asmnt/Malnutrition Start: 07/04/18 13: 34 Text: Status: Complete Freq: Protocol: Document 07/04/18 13:34 LCFAITHG (Rec: 07/04/18 13:45 CRYSTAL [email or web address]) Nutritional Asmnt/Malnutrition Patient General Information Nutritional Screening Moderate Risk Diagnosis psychosis NOS Pertinent Medical Hx/Surgical Hx HTN, parkinson's alcohol abuse , depression, left shoulder surgery Subjective Information Pt seen lying in bed at time of visit, very confused, not able to communicate. Spoke with [employer] who fed pt this morning, [employer] stated pt drank 100% of Ensure, 50% of cream of wheat and pancakes. Pt appeared skinny. Visited again pt in the afternoon, and [employer] stated pt ate well at lunch, 50% of lunch with 100% of Ensure. Current Diet Order/ Nutrition Support [facility] soft chopped Ensure Enlive TID Pertinent Medications garamycin, culturelle, theragran Pertinent Labs 07/02 lipid pannels WNL Nutritional Hx/Data Height 1.57 m Height (Calculated Centimeters) 157.5 Current Weight (lbs) 47.627 kg Weight (Calculated Kilograms) 47.6 Weight (Calculated Grams) 50377.2 [place] Body Weight 110 Body Mass Index (BMI) 19.2 Weight Status Approriate GI Symptoms GI Symptoms None Last BM 07/03 Difficult in: None Skin Integrity/Comment: intact Current %PO Poor (25-49%) Estimated Nutritional Goals BEE in Kcals: Using Current wt Calories/Kcals/Kg 27-32 Kcals Calculated 5393-0431 Protein: Using Current wt Protein g/k-1.2 Protein Calculated 48-58 Fluid: ml 1296-1536ml (1ml/kcal) Nutritional Problem 1. Problem Problem inadequate food intake Etiology confusion Signs/Symptoms: PO intake <=50% Intervention/Recommendation Comments 1. Continue with [facility] soft chopped diet with Ensure TID as ordered. Nurse please assist pt with all meals and encourage pt to eat. 2. Monitor PO intake, wt, labs and skin integrity 3. F/U as moderate risk in 3-5 days, 07/07-07/09, PO check 07/07 Expected Outcomes/Goals Expected Outcomes/Goals 1. PO intake to meet at least 75% of nutritional needs. 2. Wt stability, skin to remain intact, labs to approach WNL.
--- NOTE | 2018-07-08 22:47 | Progress Notes ---
DATE: 07/08/2018 SUBJECTIVE: Staff was spoken to. The patient is interviewed. Mood is noted to be depressed. Affect is constricted. Insight and judgment at this time are noted to be still impaired. Impulse control is noted to be poor. Coping skills are also noted to be very poor. The patient is not able to contract for safety. No side effects to the medications are noted. The patient is still isolative and withdrawn. ASSESSMENT: The patient is still depressed and suicidal. PLAN: To continue the patient with the supportive therapy and followup. JOB# [id number]
[2018-07-09] MEDS: Multivitamin Tab PO SCH (09:45)
[2018-07-09] MEDS: Lactobacillus Rhamnosus GG 15 Billion CFU CAP.SPRINK PO SCH (09:45)
--- NOTE | 2018-07-09 12:26 | Internal Medicine Prog Note ---
Internal Medicine Subjective - Subjective Patient seen and examined:: chart reviewed Patient is:: awake, confused, other (still depressed , in no distress) Patient Complaints of:: other (depressed ) Per staff patient has:: tolerating meds Internal Medicine Objective - Results Recent Labs: Laboratory Last Values POC Glucose 135 MG/DL (70-105) H 07/04/18 21:00 Triglycerides 71 mg/dL (<150) 07/02/18 07:00 Cholesterol 150 mg/dL (<200) 07/02/18 07:00 LDL Cholesterol Direct 91 mg/dL (75-193) 07/02/18 07:00 HDL Cholesterol 43 mg/dL (23-92) 07/02/18 07:00 - Physical Exam Vitals and I&O: Vital Signs Temp 98.9 F 07/09/18 06:18 Pulse 76 07/09/18 09:45 Resp 18 07/09/18 06:18 BP 117/78 07/09/18 09:45 Pulse Ox 92 07/09/18 06:18 Intake & Output 07/08/18 07/09/18 07/09/18 18:59 06:59 18:59 Intake Total 850 180 Balance 850 180 Intake: Oral 850 180 Other: # Voids 4 1 # Bowel Movements 2 0 Stool Characteristics Soft Soft Soft Active Medications: Current Medications Acetaminophen (Tylenol) 650 mg PO Q4HR PRN PRN Reason: Mild Pain / Temp above 100 Stop: 08/30/18 21:12 Last Admin: 07/06/18 20:48 Dose: 650 mg Al Hydrox/Mg Hydrox/Simethicone (Maalox) 30 ml PO Q4HR PRN PRN Reason: GI DISTRESS Stop: 08/30/18 21:12 Atenolol (Tenormin) 25 mg PO DAILY [facility] Stop: 08/31/18 08:59 Last Admin: 07/09/18 09:45 Dose: Not Given Carbidopa/Levodopa (Sinemet 25 Mg-250 Mg) 1 tab PO BID [facility] Stop: 08/31/18 08:59 Last Admin: 07/09/18 09:45 Dose: 1 tab Escitalopram Oxalate (Lexapro) 10 mg PO DAILY [facility] Stop: 09/06/18 08:59 Last Admin: 07/09/18 09:45 Dose: 10 mg Lactobacillus Rhamnosus (Culturelle 15b) 1 each PO DAILY [facility] Stop: 08/31/18 08:59 Last Admin: 07/09/18 09:45 Dose: 1 each Lorazepam (Ativan) 0.5 mg PO Q4HR PRN; Protocol PRN Reason: Anxiety Stop: 07/31/18 21:12 Last Admin: 07/03/18 21:10 Dose: 0.5 mg Magnesium Hydroxide (Milk Of Magnesia) 30 ml PO HS PRN PRN Reason: Constipation Multivitamins/Vitamin C (Theragran) 1 tab PO DAILY [facility] Stop: 08/31/18 08:59 Last Admin: 07/09/18 09:45 Dose: 1 tab Nitrofurantoin Macrocrystals (Macrobid) 100 mg PO BID [facility]; Protocol Stop: 07/14/18 08:59 Last Admin: 07/09/18 09:45 Dose: 100 mg Rivaroxaban (Xarelto) 20 mg PO DAILY [facility] Stop: 08/31/18 08:59 Last Admin: 07/09/18 09:45 Dose: 20 mg Zolpidem Tartrate (Ambien) 5 mg PO HS PRN PRN Reason: Insomnia Stop: 08/30/18 21:12 General: other (confused, depressed ) HEENT: NC/AT Neck: Supple Lungs: CTAB Cardiovascular: Normal S1, Normal S2 Abdomen: soft, non-tender Extremities: clear, edema Neurological: no change, alert - Procedures Procedures: Procedures Procedure Code Date GROUP PSYCHOTHERAPY 01437 11/24/15 GROUP PSYCHOTHERAPY GZHZZZZ 11/24/15 GROUP PSYCHOTHERAPY 26175 07/25/15 GROUP PSYCHOTHERAPY GZHZZZZ 07/25/15 Internal Medicine Assmt/Plan - Assessment Assessment: depression si with plan htn parkinson's disease alcohol abuse - Plan Plan: as per psych will montior Nutritional Asmnt/Malnutr-PDOC - Dietary Evaluation Malnutrition Findings (Please click <Entered> for more info): Nutritional Asmnt/Malnutrition Start: 07/04/18 13: 34 Text: Status: Complete Freq: Protocol: Document 07/04/18 13:34 [email or web address] (Rec: 07/04/18 13:45 [id number]) Nutritional Asmnt/Malnutrition Patient General Information Nutritional Screening Moderate Risk Diagnosis psychosis NOS Pertinent Medical Hx/Surgical Hx HTN, parkinson's alcohol abuse , depression, left shoulder surgery Subjective Information Pt seen lying in bed at time of visit, very confused, not able to communicate. Spoke with FREIGHT BOOKER who fed pt this morning, FREIGHT BOOKER stated pt drank 100% of Ensure, 50% of cream of wheat and pancakes. Pt appeared skinny. Visited again pt in the afternoon, and FREIGHT BOOKER stated pt ate well at lunch, 50% of lunch with 100% of Ensure. Current Diet Order/ Nutrition Support [facility] soft chopped Ensure Enlive TID Pertinent Medications garamycin, culturelle, theragran Pertinent Labs 07/02 lipid pannels WNL Nutritional Hx/Data Height 1.57 m Height (Calculated Centimeters) 157.5 Current Weight (lbs) 47.627 kg Weight (Calculated Kilograms) 47.6 Weight (Calculated Grams) 43604.2 [place] Body Weight 110 Body Mass Index (BMI) 19.2 Weight Status Approriate GI Symptoms GI Symptoms None Last BM 07/03 Difficult in: None Skin Integrity/Comment: intact Current %PO Poor (25-49%) Estimated Nutritional Goals BEE in Kcals: Using Current wt Calories/Kcals/Kg 27-32 Kcals Calculated 7158-4795 Protein: Using Current wt Protein g/k-1.2 Protein Calculated 48-58 Fluid: ml 1296-1536ml (1ml/kcal) Nutritional Problem 1. Problem Problem inadequate food intake Etiology confusion Signs/Symptoms: PO intake <=50% Intervention/Recommendation Comments 1. Continue with [facility] soft chopped diet with Ensure TID as ordered. Nurse please assist pt with all meals and encourage pt to eat. 2. Monitor PO intake, wt, labs and skin integrity 3. F/U as moderate risk in 3-5 days, 07/07-07/09, PO check 07/07 Expected Outcomes/Goals Expected Outcomes/Goals 1. PO intake to meet at least 75% of nutritional needs. 2. Wt stability, skin to remain intact, labs to approach WNL.
--- NOTE | 2018-07-09 19:40 | Progress Notes ---
DATE: 07/09/2018 PSYCHIATRIC PROGRESS NOTE SUBJECTIVE: Staff was spoken to. The patient is interviewed. Mood is noted to be depressed. Affect is constricted. The patient's insight and judgment are noted to be fair. Impulse control is noted to be improving. The patient is still confused, but is willing to go to the [facility] facility since the patient's is not able to care for the patient any longer. ASSESSMENT: The patient is still depressed and paranoid. PLAN: To continue the patient with the supportive therapy and the patient is supposed to be adjusted on the medications when she gets out of here. JOB# [id number]
[2018-07-10] MEDS: Lactobacillus Rhamnosus GG 15 Billion CFU CAP.SPRINK PO SCH (10:02)
[2018-07-10] MEDS: Multivitamin Tab PO SCH (10:03)
--- NOTE | 2018-07-13 11:23 | Discharge Summary ---
DATE OF DISCHARGE: 07/10/2018 IDENTIFYING DATA: The patient is a 77-year-old woman, , living with her family. Information obtained directly interviewing the patient as well as reviewing the admission papers and they are reliable. JUSTIFICATION OF HOSPITALIZATION: The patient is admitted on a voluntary basis after she overdosed on her blood pressure medication. HOSPITAL COURSE AND RESPONSE TO TREATMENT: The patient has been on the medical unit and was medically cleared and later was transferred to the geropsychiatric unit for further care. Staff was spoken to. The patient is interviewed. During the interview, the patient has been not making much sense. The patient is noted to be acutely confused. The patient has been kept off of medications and the patient has been provided with individual as well as family counseling. The patient's has been met on the unit on couple of occasions. The patient has been started on the low dose of Lexapro. The patient was observed and the patient's ____ very well and was discharged on 07/10/2018 to [facility] with recommendation that she is going to be followed up by Dr. Kruse on an outpatient basis. MENTAL STATUS EXAMINATION: At the time of the discharge, the patient was noted to be anxious. Affect is appropriate. Not suicidal or homicidal. Coping skills are noted to be fair. The confusion is resolving. The patient is not presenting as a threat to self or others at the time of the discharge. CONDITION: At the time of discharge noted to be fair. DIAGNOSIS AT THE TIME OF DISCHARGE: AXIS I: Major depressive disorder, recurrent and moderate. AXIS IB: Dementia and behavioral change, secondary trait. AXIS II: None. AXIS III: Parkinson's disease. AFTERCARE PLAN: The patient is discharged to [facility] to be followed up on an outpatient basis. JOB# [id number]
== END 2018-07-10 16:30 | DRG 885 ==
LOC: GERO 17:47
PROVIDERS: ADMIT Psychiatry & Neurology Psychiatry; ATTEND Psychiatry & Neurology Psychiatry
DX: F33.2 Major depressive disorder, recurrent severe without psychotic features (principal); R45.851 Suicidal ideations; F02.81 Dementia in other diseases classified elsewhere, unspecified severity, with behavioral disturbance; I10 Essential (primary) hypertension; G20 Parkinson's disease; F10.10 Alcohol abuse, uncomplicated; Z88.0 Allergy status to penicillin; Z88.8 Allergy status to other drugs, medicaments and biological substances
CPT/HCPCS: 36415-UA; 80061-TC; 82948-90; 83036-90; J1580; Z7610